=== PATIENT | female | born 1955 | race Caucasian/White ===

== ENCOUNTER 2017-08-22 10:34 | Outpatient (CLI) | payer OTHER ==
--- NOTE | 2017-08-22 12:02 | RAD ---
CHEST PA AND LATERAL: History: 62-year-old female with history of dyspnea. Comparison: 09-22-16 FINDINGS: Bilateral linear, interstitial, and reticular nodular parenchymal changes are noted, evidence for lashawn e stable chronic lung changes. Heart size is within normal limits. The lungs are clear of acute proce ss. No significant pleural effusion or confluent pneumonia. IMPRESSION: Stable chronic changes. No significant acute process. POS: [facility]
== END 2017-08-22 10:35 | disposition home or self-care (01) ==
LOC: RAD 10:34
PROVIDERS: ATTEND Internal Medicine Pulmonary Disease
DX: R06.00 Dyspnea, unspecified (principal)
CPT/HCPCS: 71020

== ENCOUNTER 2017-10-30 10:58 | Outpatient (CLI) | payer OTHER ==
--- NOTE | 2017-10-30 12:26 | RAD ---
TWO VIEWS OF THE CHEST: HISTORY: Dyspnea. COMPARISON: 08/22/2017 FINDINGS: Two views of the chest show a normal sized cardiomediastinal silhouette. Increased interstitial jerry ings are present. There is no evidence of consolidation, mass, or pleural effusion. Degenerative ch anges are seen in the spine. IMPRESSION: No evidence of acute cardiopulmonary disease. POS: [facility]
== END 2017-10-30 10:59 | disposition home or self-care (01) ==
LOC: RAD 10:58
PROVIDERS: ATTEND Internal Medicine Pulmonary Disease
DX: R06.00 Dyspnea, unspecified (principal)
CPT/HCPCS: 71046

== ENCOUNTER 2017-11-18 09:11 | Observation (INO) | payer OTHER ==
--- NOTE | 2017-11-18 09:59 | RAD ---
AP VIEW OF THE CHEST: INDICATION: Chest pain. COMPARISON: Prior exam dated 10/30/17. IMPRESSION: There is stable cardiomegaly and chronic lung changes. No focal consolidation, pleural fluid, or pne umothorax is evident. No acute osseous abnormality is evident. POS: [facility]
[2017-11-18 10:02] LABS: #Basophils 0.1 thou/uL (0.0-0.2); #Eosinphils 0.2 thou/uL (0.0-0.7); #Lymphocytes 1.9 thou/uL (1.20-3.40); %Basophils 0.5 % (0.0-1.0); %Eosinophils 1.7 % (0.0-10.0); %Lymphocytes 15.5 % (21.0-51.0); %Monocytes 8.4 % (0.0-10.0); %Neutrophils 73.9 % (42.0-75.0); Hemoglobin 13.4 g/dL (12.0-16.0); Mean Corpuscular Hemoglobin 30.6 pg (27.0-31.0); Mean Corpuscular Volume 90.2 fl (81.0-99.0); Platelet Count 330 thou/uL (130-400); RBC Distribution Width 12.1 % (11.5-14.5); Red Blood Cell (RBC) Count 4.39 mill/uL (4.20-5.40); White Blood Cell (WBC) Count 12.1 thou/uL (4.8-10.8)
[2017-11-18 10:07] LABS: Prothrombin Time 13.6 SEC (12.0-14.7)
[2017-11-18] MEDS ORDERED: methylPREDNISolone Sod Succ/PF 125 MG/2 ML VIAL ONE (10:20)
[2017-11-18 10:23] LABS: ALT (SGPT) 21 U/L (8-55); AST (SGOT) 20 U/L (5-34); Albumin 4.3 g/dL (3.4-4.8); Alkaline Phosphatase 84 U/L (40-150); Anion Gap 12 mmol/L (10-20); BUN (Urea Nitrogen) 14 mg/dL (9.8-20.1); Bilirubin, Total 0.4 mg/dL (0.2-1.2); CK (CPK) 44 U/L (29-168); Calc. Creatinine Clearance 0 mL/min (70-130); Calcium 9.5 mg/dL (7.8-10.44); Carbon Dioxide 27 mmol/L (23-31); Chloride 99 mmol/L (98-107); Estimated GFR-MDRD 70; Globulin 3.3 g/dL (2.4-3.5); Glucose 95 mg/dL (80-115); Lipase 15 U/L (8-78); Potassium 3.5 mmol/L (3.5-5.1); Protein, Total 7.6 g/dL (6.0-8.3); Sodium 134 mmol/L (136-145)
[2017-11-18 10:26] LABS: CKMB 0.5 ng/mL (0-6.6); Troponin I Less than 0.010 ng/mL (< 0.028)
[2017-11-18 10:39] LABS: D-Dimer Test 0.71 *mcg/mL (0.27-0.43)
[2017-11-18] MEDS ORDERED: Nitroglycerin 0.4 MG TAB (25 Tab Bottle) ONE ×2 (12:18→21:26)
[2017-11-18] MEDS ORDERED: ISOVUE-370 76%-LOCM 1 ML ONE (12:58)
--- NOTE | 2017-11-18 13:30 | CT ---
CT ARTERIOGRAM CHEST WITH IV COTNRAST AND 3D MIP IMAGING: HISTORY: Chest pain. Dyspnea. FINDINGS: There is good contrast opacification of the pulmonary arteries. No mediastinal adenopathy or pleural fluid are visible. There are coarsened interstitial markings throughout each lung, most pronounced at the upper lobes, with patchy areas of subtle ground-glass opacity, primarily in the areas of inter stitial abnormality. Tiny nonspecific subpleural nodules are stable. IMPRESSION: 1. No CT evidence of pulmonary embolus 2. Upper lobe interstitial lung disease with subtle multifocal pneumonitis, possibly related to the chronic disease. POS: [facility]
[2017-11-18 15:46] LABS: Troponin I Less than 0.010 ng/mL (< 0.028)
--- NOTE | 2017-11-18 16:06 | HP ---
PRIMARY CARE PHYSICIAN: Dr. Carmella Mitchell. REASON FOR ADMISSION: Chest pain. HISTORY OF PRESENT ILLNESS: A 62-year-old female with a history of nonspecific interstitial lung dis ease who came to ER with a complaint of left-sided chest pain. This patient recently went to [facility] where she was having difficulty breathing at a height and she was having chest pain on the left nazario e that was related with movement and whenever she was coughing and whenever she was taking a deep aric ath at that time she was hurting in her left chest. She reports that she hurting when she had lung b iopsy done exactly that type of pain she is experiencing. She denies any associated nausea, vomiting or diaphoresis. She denies any relation with exertion. She denies any relation with food. The patient's pain was persistent for the last 2 days and last night got worsened and that is why she was concerned about heart and that is why she came to the ER. In the emergency room, they did a CT angio with PE protocol, which was negative for PE, but it did show chronic upper lobe interstitial ronnell ng disease changes. The patient also reports that before going to [place], she was having low grade fever and cough and that is why her primary care physician prescribed Bactrim-DS, which she finished almost 2 weeks and her dose was finished yesterday. At that time, dose of prednisone, normally she was taking 5 mg every other day, that was also increased to 20 mg daily, and then reduced to 10 mg da cherri. The patient denies any UTI symptoms. She denies any fever or chills. She denies any constipation, d iarrhea, melena or hematochezia. She denies any abdominal pain. REVIEW OF SYSTEMS: Constitutional: Weight loss or gain, ability to conduct usual activities. Skin: Rash, itching. Eyes: Double vision, pain. ENT/Mouth: Nose bleeding, neck stiffness, pain, tenderness. Cardiovascular: Palpitations, dyspnea on exertion, orthopnea. Respiratory: Shortness of breath, wheezing, cough, hemoptysis, fever or night sweats. Gastrointestinal: Poor appetite, abdominal pain, heartburn, nausea, vomiting, constipation, or diarr hea. Genitourinary: Urgency, frequency, dysuria, nocturia. Musculoskeletal: Pain, swelling. Neurologic/Psychiatric: Anxiety, depression. Allergy/Immunologic: Skin rash, bleeding tendency. Please see my HPI for pertinent positives and negatives. All other review of systems reviewed and ne gative except as mentioned in the HPI. ALLERGIES: No known drug allergies. CURRENT HOME MEDICATIONS: The patient is currently on prednisone 10 mg p.o. daily, Ambien 10 mg p.o. at bedtime, Ventolin HFA 1 puff q.6 hourly p.r.n., Zocor 40 mg p.o. at bedtime, Zoloft 100 mg p.o. d aily, omeprazole 20 mg p.o. daily, Singulair 10 mg p.o. daily, Losartan with hydrochlorothiazide 1.5 tablet p.o. daily, DuoNeb q.6 hourly p.r.n., Mucinex 600 mg twice daily, Breo Ellipta one inhalation daily, Tessalon 100 mg q.4 hourly p.r.n. and amitriptyline 25 mg p.o. at bedtime. PAST MEDICAL HISTORY: Interstitial lung disease, history of West Nile virus in 2011, hypertension an d dyslipidemia. PAST PSYCHIATRIC HISTORY: Anxiety, depression and obsessive compulsive disorder. PAST SURGICAL HISTORY: Right total knee replacement, hysterectomy and lung biopsy in 07/2016. SOCIAL HISTORY: The patient drinks alcohol socially twice a month. She denies any smoking. She ruben t smoking 5 years ago, otherwise she was a former smoker. She is not a heavy smoker in her life. Giovani russ denies any other illicit drug abuse. FAMILY HISTORY: No strong family history of premature coronary artery disease, stroke or cancer. EMERGENCY ROOM COURSE: The patient is given nitroglycerin, aspirin 324 mg, DuoNeb therapy and Solu-M edrol 125 mg. PHYSICAL EXAMINATION: VITAL SIGNS: Currently, blood pressure 133/75, pulse 90, respiratory rate 21, temperature 97.5, satu ration 97% on room air and weight 90.7 kilograms. GENERAL: The patient is currently alert and oriented, no acute distress. HEAD: Normocephalic, atraumatic. EYES: Pupils are round and reactive to light. Extraocular muscles intact. ENT: Oropharynx within normal limits. Moist mucous membranes. No oral lesions. No pharyngeal eryt allan, no exudate. NECK: Supple. No JVD, no thyromegaly, no carotid bruit, no jugular venous distention. LUNGS: Air entry reduced, but no wheeze, no rhonchi, no rales. CARDIAC: S1 and S2 regular. No murmur, no gallop, no rub. ABDOMEN: Obesity. Bowel sounds present. Nontender and nondistended. No organomegaly, no mass, no suprapubic tenderness. BACK: Unremarkable. No CVA tenderness. EXTREMITIES: Upper extremity passive movement of all joints are normal. Lower extremities; no edema . Good peripheral pulsation. SKIN: No skin rash. HEMATOLOGICAL SYSTEM: No lymphadenopathy. PSYCHIATRIC: Normal affect. NEUROLOGIC: Nonfocal examination. SIGNIFICANT LABS AND IMAGING DATA: EKG showing normal sinus rhythm without any acute ischemic change s. CT angio showing no PE, upper lobe interstitial lung disease changes. Chest x-ray based on my re view, no acute cardiopulmonary process. CBC: WBC 12.1, hemoglobin 13.4 and platelets 330. INR 1.0, D-dimer 0.71. BMP: Sodium 134, potassium 3.5, chloride 99, carbon dioxide 27, BUN 14, creatinine 0.83, calcium 9.5 . LFT: AST 20, ALT 21, alkaline phosphatase 84, albumin 4.3. Lipase 15, CK 44, CK-MB 0.5 and troponin I less than 0.010. ASSESSMENT, PLAN AND IMPRESSION: 1. Acute chest pain. The patient's chest pain description is most likely related with costochondrit is. She has pleuritic pain locally related with movement and associated with cough only. She also h as some mild point tenderness over the left side of the chest, underneath of her breast. I am most l ikely suspecting costochondritis. The patient is over concerned about cardiac etiology. I reassured her that this is not cardiac etiology. EKG is normal and cardiac enzymes are negative, but for bene fit of doubt patient wanted to go for stress test and that is why we will perform pharmacological str ess test tomorrow morning to rule out underlying ischemia. Meanwhile, we will continue Aspirin 81 mg p.o. daily and will control her pain with pain medication. 2. Nonspecific interstitial lung disease. We will continue prednisone 10 mg p.o. daily. The patien t has given high dose of steroid in the emergency room. We will continue her home medications and in halers while in hospital as well. 3. Anxiety and depression. We will continue Zoloft 100 mg p.o. daily as per home dosage. 4. Dyslipidemia. Check lipid profile tomorrow and continue Zocor 40 mg p.o. at bedtime. 5. Deep venous thrombosis prophylaxis not needed because we are expecting discharge in 24 hours. 6. Gastrointestinal prophylaxis. Protonix 40 mg p.o. daily. 7. Gastroesophageal reflux disease. We will continue Protonix 40 mg p.o. daily. CODE STATUS: The patient is FULL CODE. The patient does not have any surrogate decision maker. Disposition plan based on clinical course and based on stress test results, likely within 24 hours. Plan of care discussed with the patient in detail and she agreed with the plan.
[2017-11-18] MEDS ORDERED: Ondansetron HCl/PF 4 MG/2 ML Vial IVP PRN ×2 (16:16→16:17)
[2017-11-18] MEDS ORDERED: Acetaminophen 325 MG TAB PO PRN ×2 (16:16→16:17)
[2017-11-18] MEDS ORDERED: Ondansetron ODT 4 MG TAB SL PRN (16:16)
[2017-11-18] MEDS ORDERED: Diabetic Tussin 200 MG/10 ML UDCUP PO PRN (16:17)
[2017-11-18] MEDS ORDERED: Loperamide HCl 2 MG CAP PO PRN (16:17)
[2017-11-18] MEDS ORDERED: Eucerin (Mineral Oil/Petrolatum,White) 30 gm Jar TOP PRN (16:17)
[2017-11-18] MEDS ORDERED: Ondansetron ODT 4 MG TAB PO PRN (16:17)
[2017-11-18] MEDS ORDERED: Sodium Chloride 0.65% Nasal 44 ML BOT EA NARE PRN (16:17)
[2017-11-18] MEDS ORDERED: hydrALAZINE 20 MG/ML VIAL SLOW IVP PRN (16:17)
[2017-11-18] MEDS ORDERED: Benzonatate 100 MG CAP PO PRN (16:17)
[2017-11-18] MEDS ORDERED: HYDROcodone/Acetaminophen 5/325 mg Tablet PO PRN (16:17)
[2017-11-18] MEDS ORDERED: Artificial Tears 18 DROP/0.9 ML EA EYE PRN (16:17)
[2017-11-18] MEDS ORDERED: Senokot 8.6 MG TAB PO PRN (16:17)
[2017-11-18] MEDS ORDERED: Mag-Al 1200 mg/1200 mg/30 ML UDCUP PO PRN (16:17)
[2017-11-18] MEDS ORDERED: Milk Of Magnesia 30 ML UDCUP PO PRN (16:17)
[2017-11-18] MEDS ORDERED: Chloraseptic Spray 180 ml Bottle PO PRN (16:17)
[2017-11-18] MEDS ORDERED: Loratadine 10 MG TAB PO PRN (16:17)
[2017-11-18 16:50] VITALS: BMI 34.3
[2017-11-18 18:30] LABS: Troponin I Less than 0.010 ng/mL (< 0.028)
[2017-11-18] MEDS ORDERED: Atorvastatin Calcium 20 MG TAB PO SCH (21:00)
[2017-11-18] MEDS ORDERED: Nitroglycerin 2% Ointment 1 INCH/1 GM Packet ONE (21:26)
[2017-11-18] MEDS: Zolpidem Tartrate 5 MG TAB PO PRN ×2 (21:35→21:36)
[2017-11-19 04:52] LABS: Cardiac Risk 2.6 (Less than 4.5)
[2017-11-19] MEDS ORDERED: PROVENTIL INHALER 6.7 G (200 INHALATIONS) INH PRN (07:08)
[2017-11-19] MEDS ORDERED: Potassium Chloride 20 MEQ TAB PO SCH ×2 (07:15→08:00)
[2017-11-19] MEDS ORDERED: Mometasone/Formoterol 120 PUFF INHALER INH SCH (07:30)
[2017-11-19] MEDS ORDERED: predniSONE 5 MG TAB PO SCH (08:00)
[2017-11-19 08:30] VITALS: BP 135/73; TEMP 98.1
[2017-11-19] MEDS ORDERED: guaiFENesin ER 600 MG TAB PO SCH (09:00)
[2017-11-19] MEDS ORDERED: Montelukast Sodium 10 mg Tablet PO SCH (09:00)
[2017-11-19] MEDS ORDERED: Aspirin 325 MG TAB PO SCH (09:00)
--- NOTE | 2017-11-19 09:15 | PDOC.PN ---
- Subjective Encounter Start Date: 11/19/17 Encounter Start Time: 07:20 -: old records requested/rev Patient seen and examined. No new complaints. No overnight events - Objective Resuscitation Status: Resuscitation Status FULL:Full Resuscitation MAR Reviewed: Yes Vital Signs & Weight: Vital Signs (12 hours) Temp Pulse Resp BP BP Pulse Ox 11/19/17 07:49 98.1 F 82 16 135/73 98 11/19/17 03:57 97.7 F 76 18 129/60 96 I&O: 11/18/17 11/19/17 11/20/17 06:59 06:59 06:59 Intake Total 875 Output Total 800 Balance 75 Result Diagrams: 11/18/17 09:51 11/18/17 09:51 EKG Reviewed by me: Yes (nsr) Phys Exam - Physical Examination Constitutional: NAD HEENT: PERRLA, moist MMs, sclera anicteric Neck: no JVD, supple Respiratory: no wheezing, no rales, no rhonchi Cardiovascular: RRR, no significant murmur, no rub Gastrointestinal: soft, non-tender, no distention, positive bowel sounds Musculoskeletal: no edema, pulses present Neurological: non-focal, normal sensation, moves all 4 limbs Psychiatric: normal affect, A&O x 3 Skin: no rash, normal turgor Dx/Plan (1) Chest pain Code(s): R07.9 - CHEST PAIN, UNSPECIFIED Status: Acute Qualifiers: Chest pain type: unspecified Qualified Code(s): R07.9 - Chest pain, unspecified (2) Anxiety and depression Code(s): F41.9 - ANXIETY DISORDER, UNSPECIFIED; F32.9 - MAJOR DEPRESSIVE DISORDER, SINGLE EPISODE, UNSPECIFIED Status: Chronic (3) Diastolic dysfunction Code(s): I51.9 - HEART DISEASE, UNSPECIFIED Status: Chronic (4) Dyslipidemia Code(s): E78.5 - HYPERLIPIDEMIA, UNSPECIFIED Status: Chronic (5) Hypertension Code(s): I10 - ESSENTIAL (PRIMARY) HYPERTENSION Status: Chronic (6) ILD (interstitial lung disease) Code(s): J84.9 - INTERSTITIAL PULMONARY DISEASE, UNSPECIFIED Status: Chronic (7) Obesity (BMI 30.0-34.9) Code(s): E66.9 - OBESITY, UNSPECIFIED Status: Chronic - Plan cont current plan of care * pt's chest pain is musculoskeletal, * today pt decided not to go for stress test, will cancel * we have ruled out ACS * she can follow up with pulmonary after discharge * medication reviewed as below * symptomatic treatment. Review of Systems - Review of Systems Constitutional: negative: fever, chills, sweats, weakness, malaise, other Eyes: negative: Pain, Vision Change, Conjunctivae Inflammation, Eyelid Inflammation, Redness, Other ENT: negative: Ear Pain, Ear Discharge, Nose Pain, Nose Discharge, Nose Congestion, Mouth Pain, Mouth Swelling, Throat Pain, Throat Swelling, Other Respiratory: Cough. negative: Dry, Shortness of Breath, Hemoptysis, SOB with Excertion, Pleuritic Pain, Sputum, Wheezing Cardiovascular: chest pain. negative: palpitations, orthopnea, paroxysmal nocturnal dyspnea, edema, light headedness, other Gastrointestinal: negative: Nausea, Vomiting, Abdominal Pain, Diarrhea, Constipation, Melena, Hematochezia, Other Genitourinary: negative: Dysuria, Frequency, Incontinence, Hematuria, Retention , Other Musculoskeletal: negative: Neck Pain, Shoulder Pain, Arm Pain, Back Pain, Hand Pain, Leg Pain, Foot Pain, Other Skin: negative: Rash, Lesions, Stephane, Bruising, Other - Medications/Allergies Allergies/Adverse Reactions: Allergies Allergy/AdvReac Type Severity Reaction Status Date / Time No Known Drug Allergies Allergy Verified 02/14/16 01:05 Medications: Current Medications Acetaminophen (Tylenol) 650 mg PO Q4H PRN PRN Reason: Headache/Fever or Pain Hydrocodone Bitart/Acetaminophen ([place] 5/325) 1 tab PO Q4H PRN PRN Reason: Moderate Pain (4-6) Last Admin: 11/18/17 20:39 Dose: 1 tab Al Hydroxide/Mg Hydroxide (Maalox) 30 ml PO Q6H PRN PRN Reason: Heartburn or Indigestion Last Admin: 11/18/17 21:46 Dose: 30 ml Albuterol Sulfate (Proventil Hfa) 1 puff INH Q4H PRN PRN Reason: SOB &/or Wheezing Albuterol/Ipratropium (Duoneb) 3 ml NEB QID-RT [facility] Amitriptyline HCl (Elavil) 25 mg PO HS [facility] Artificial Tears (Tears Naturale) 0 drop EA EYE PRN PRN PRN Reason: Dry Eyes Aspirin (Aspirin) 325 mg PO DAILY [facility] Atorvastatin Calcium (Lipitor) 20 mg PO HS [facility] Last Admin: 11/18/17 20:37 Dose: 20 mg Benzonatate (Tessalon) 100 mg PO Q4H PRN PRN Reason: Cough Guaifenesin (Robitussin Sf) 200 mg PO Q4H PRN PRN Reason: Cough Last Admin: 11/18/17 20:40 Dose: 200 mg Guaifenesin (Mucinex) 600 mg PO BID [facility] HCTZ/Losartan Potassium (Hyzaar 50/12.5) 1 tab PO DAILY [facility] Hydralazine HCl (Apresoline) 10 mg SLOW IVP Q4H PRN PRN Reason: Systolic BP > 180 Loperamide HCl (Imodium) 2 mg PO PRN PRN PRN Reason: Diarrhea/Loose Stools Loratadine (Claritin) 10 mg PO DAILYPRN PRN PRN Reason: Sinus Symptoms Magnesium Hydroxide (Milk Of Magnesium) 30 ml PO DAILYPRN PRN PRN Reason: Constipation Mineral Oil/White Petrolatum (Eucerin Cream) 0 gm TOP BIDPRN PRN PRN Reason: Dry Skin Mometasone Furoate/Formoterol Fumar (Dulera 100 Mcg/5 Mcg Inhaler) 2 puff INH BID-RT [facility] Montelukast Sodium (Singulair) 10 mg PO DAILY [facility] Ondansetron HCl (Zofran Odt) 4 mg PO Q6H PRN PRN Reason: Nausea/Vomiting Ondansetron HCl (Zofran) 4 mg IVP Q6H PRN PRN Reason: Nausea/Vomiting Phenol (Chloraseptic [place] 180 Ml Bot) 0 ml PO PRN PRN PRN Reason: Sore Throat Potassium Chloride (K-Dur) 20 meq PO QAM-WM [facility] Prednisone (Prednisone) 10 mg PO QAM-WM [facility] Senna (Senokot) 2 tab PO HSPRN PRN PRN Reason: Constipation Sertraline HCl (Zoloft) 100 mg PO HS [facility] Last Admin: 11/18/17 20:37 Dose: 100 mg Sertraline HCl (Zoloft) 100 mg PO HS [facility] Simvastatin (Zocor) 40 mg PO HS [facility] Sodium Chloride ([place] Nasal [place] 0.65%) 0 ml EA NARE QIDPRN PRN PRN Reason: Nasal Congestion Zolpidem Tartrate (Ambien) 10 mg PO HS [facility]
--- NOTE | 2017-11-19 11:02 | DIS ---
PRIMARY CARE PHYSICIAN: Dr. Carmella Mitchell. DATE OF ADMISSION: 11/18/2017 DATE OF DISCHARGE: 11/19/2017 DISCHARGE DISPOSITION: Home. PRIMARY DISCHARGE DIAGNOSES: Chest pain, likely due to costochondritis ruled out acute coronary synd olive. SECONDARY DISCHARGE DIAGNOSES: Obesity with BMI 34, interstitial lung disease, hypertension, dyslipi demia, diastolic dysfunction, anxiety, and depression. PRIMARY PROCEDURE/OPERATION: None. RADIOLOGICAL INVESTIGATION: CT angiography showed right upper lobe nonspecific interstitial lung dis ease, but no PE. Chest x-ray showed chronic changes, no acute process. SIGNIFICANT LABORATORY DATA: WBC 12.1, hemoglobin 13.4, platelets 330, D-dimer 0.71. INR 1.0. BMP normal. LFTs normal. Cardiac enzymes negative x3. LDL 90. Lipase 15. DISCHARGE MEDICATIONS: Amitriptyline 25 mg p.o. at bedtime, Breo Ellipta 1 inhalation daily, Mucinex 600 mg twice daily, DuoNeb q.6 hourly p.r.n., losartan with hydrochlorothiazide 50/12.5 one tablet p .o. daily, Singulair 10 mg p.o. daily, omeprazole 20 mg p.o. daily, potassium chloride 20 mEq p.o. da cherri, prednisone 10 mg p.o. daily, Zoloft 100 mg p.o. at bedtime, Zocor 40 mg p.o. at bedtime, Ventoli n inhaler one inhalation q.4 hourly p.r.n., and Ambien CR 12.5 mg p.o. at bedtime. CONTRAINDICATIONS: None. CODE STATUS: FULL CODE. INPATIENT CONSULTANTS: None. ALLERGIES: No known drug allergy. DISCHARGE PLAN: Post hospital, the patient is advised to follow with Dr. Rodgers and Dr. Carmella Mitchell as instructed. HOSPITAL COURSE: The patient is a 62-year-old female with above-mentioned medical problem, who was a dmitted by me yesterday. Please see my progress note from today for further details. This patient w as having lately cough for a long period of time and she was having fever and that is why she was pre scribed Bactrim DS by primary care physician. She finished complete course of therapy. Recently she went to [place] and where she was having increasing dyspnea as well as increasing cough and because of increasing cough, the patient was having chest pain on the left side. She had reproducible chest pain. We are suspecting costochondritis. Her EKG and chest x-ray was unremarkable. CT angio was n egative for PE. The patient was observed on telemetry floor and we did serial cardiac enzyme and it ruled out acute coronary syndrome. Her lipid profile was also at target. We continued all her home medication while in hospital as well as on discharge. Initially, this patient was wanted to go for stress test, but this morning she decided not to go for stress test and I am okay with that because patient has mostly costochondritis. If she needs to go f or stress test, she can have it as an outpatient basis and she can follow up with Pulmonology as well . The patient is seen and examined at bedside today. Please see my progress note from today for furthe r details.
[2017-11-19] MEDS ORDERED: Zolpidem Tartrate 5 MG TAB PO SCH (21:00)
[2017-11-19] MEDS ORDERED: Amitriptyline HCl 25 MG TAB PO SCH (21:00)
[2017-11-19] MEDS ORDERED: Simvastatin 40 MG TAB PO SCH (21:00)
== END 2017-11-19 09:29 | disposition home or self-care (01) ==
LOC: ERS 09:11 → 2SW 16:04
PROVIDERS: ADMIT Internal Medicine; ATTEND Internal Medicine
DX: R07.9 Chest pain, unspecified (principal); E66.9 Obesity, unspecified; J84.9 Interstitial pulmonary disease, unspecified; I10 Essential (primary) hypertension; E78.5 Hyperlipidemia, unspecified; I50.9 Heart failure, unspecified; F41.9 Anxiety disorder, unspecified; K21.9 Gastro-esophageal reflux disease without esophagitis; F42.9 Obsessive-compulsive disorder, unspecified; F32.9 Major depressive disorder, single episode, unspecified; Z68.34 Body mass index [BMI] 34.0-34.9, adult; Z79.51 Long term (current) use of inhaled steroids; Z79.52 Long term (current) use of systemic steroids; Z79.899 Other long term (current) drug therapy; Z96.651 Presence of right artificial knee joint; Z87.891 Personal history of nicotine dependence; Z90.710 Acquired absence of both cervix and uterus; Z98.890 Other specified postprocedural states
CPT/HCPCS: 36415; 36416; 71045; 71275; 80053; 80061; 82553; 83690; 84484; 85025; 85379; 85610; 85730; 93005; 94640; 96374; G0378; J2930

== ENCOUNTER 2018-05-11 10:08 | Outpatient (CLI) | payer OTHER ==
[2018-05-11] MEDS ORDERED: ISOVUE-370 76%-LOCM 1 ML ONE (14:46)
== END 2018-05-11 10:09 | disposition home or self-care (01) ==
LOC: BICCT 10:08
PROVIDERS: ATTEND Internal Medicine Gastroenterology
DX: R10.13 Epigastric pain (principal); R14.2 Eructation; R13.10 Dysphagia, unspecified
CPT/HCPCS: 74177; 82565

== ENCOUNTER 2018-06-01 09:18 | Outpatient (CLI) | payer OTHER | END 2018-06-01 09:19 | disposition home or self-care (01) | LOC: BICMAMMO 09:18 | PROVIDERS: ATTEND Family Medicine | DX: Z12.31 Encounter for screening mammogram for malignant neoplasm of breast (principal); Z13.820 Encounter for screening for osteoporosis; M85.89 Other specified disorders of bone density and structure, multiple sites; Z80.3 Family history of malignant neoplasm of breast; Z79.52 Long term (current) use of systemic steroids | CPT/HCPCS: 77063; 77066; 77067; 77080; G0279 ==

== ENCOUNTER 2019-04-18 09:44 | Outpatient (CLI) | payer OTHER ==
--- NOTE | 2019-04-18 10:07 | ULT ---
EXAM: Left lower extremity venous Doppler US HISTORY: Left lower extremity pain FINDINGS: Grayscale, color-flow, Doppler evaluation, spectral analysis of the left lower extremity venous struc tures is performed with 2-D imaging. The left common femoral, superficial femoral, popliteal, posterior tibial, proximal greater saphenous and profunda femoral veins are imaged. There is normal luminal compressibility, flow, and augmentation the visualized deep venous structures of the left lower extremity. IMPRESSION: No evidence of a deep vein thrombosis in the left lower extremity.
== END 2019-04-18 09:45 | disposition home or self-care (01) ==
LOC: ULT 09:44
PROVIDERS: ATTEND Family Medicine
DX: M79.605 Pain in left leg (principal)

== ENCOUNTER 2019-10-16 12:34 | Outpatient (CLI) | payer OTHER ==
--- NOTE | 2019-10-16 12:46 | RAD ---
EXAM: Chest 2 views: HISTORY: Chest pain COMPARISON: 11/18/2017 FINDINGS: There is a normal-sized cardiomediastinal silhouette. There is no evidence of consolidation, mass, or pleural effusion. The bones are unremarkable. IMPRESSION: No evidence of acute cardiopulmonary disease
== END 2019-10-16 12:35 | disposition home or self-care (01) ==
LOC: RAD 12:34
PROVIDERS: ATTEND Internal Medicine Pulmonary Disease
DX: R06.00 Dyspnea, unspecified (principal)
CPT/HCPCS: 71046

== ENCOUNTER 2019-10-29 08:30 | Outpatient (CLI) | payer OTHER ==
--- NOTE | 2019-10-29 08:58 | MMO ---
Bilateral MAMMO Bilat Screen [facility]. CLINICAL HISTORY: Patient is 64 years old and is seen for screening. The patient has the following family history of breast cancer: 2 maternal aunts. The patient has no personal history of cancer. VIEWS: The views performed were: bilateral craniocaudal with tomosynthesis and bilateral mediolateral oblique with tomosynthesis. FILMS COMPARED: The present examination has been compared to prior imaging studies performed at [facility] on 06/01/2018, and at [facility] on 06/16/2014, 10/30/2015 and 04/19/2017. This study has been interpreted with the assistance of computer-aided detection. MAMMOGRAM FINDINGS: There are scattered fibroglandular densities. There are no suspicious masses, suspicious calcifications, or new areas of architectural distortion. IMPRESSION: THERE IS NO MAMMOGRAPHIC EVIDENCE OF MALIGNANCY. A ROUTINE FOLLOW-UP MAMMOGRAM IN 1 YEAR IS RECOMMENDED. THE RESULTS OF THIS EXAM WERE SENT TO THE PATIENT. ACR BI-RADS Category 1 - Negative MAMMOGRAPHY NOTE: 1. A negative mammogram report should not delay a biopsy if a dominant of clinically suspicious mass is present. 2. Approximately 10% to 15% of breast cancers are not detected by mammography. 3. Adenosis and dense breasts may obscure an underlying neoplasm. Reported by: DEVANG WEBB MD Electonically Signed: [id number]
== END 2019-10-29 08:31 | disposition home or self-care (01) ==
LOC: BICMAMMO 08:30
PROVIDERS: ATTEND Family Medicine
DX: Z12.31 Encounter for screening mammogram for malignant neoplasm of breast (principal); Z80.3 Family history of malignant neoplasm of breast
CPT/HCPCS: 77063; 77067

== ENCOUNTER 2020-02-27 08:27 | Emergency (ER) | payer OTHER ==
[2020-02-27] MEDS ORDERED: HYDROcodone/Acetaminophen 5/325 mg Tablet ONE (09:12)
[2020-02-27] MEDS ORDERED: Ketorolac Tromethamine 30 MG/ML VIAL ONE (09:12)
--- NOTE | 2020-02-27 09:19 | RAD ---
Exam:Right ankle 3 views HISTORY: Trauma. Pain. Fall. COMPARISON: None FINDINGS: Lateral soft tissue swelling. Preserved joint spaces. No fracture, cortical irregularity or periosteal reaction IMPRESSION: Lateral soft tissue swelling, without fracture.
--- NOTE | 2020-02-27 12:45 | RAD ---
RIGHT KNEE 4 VIEWS: HISTORY: Fall, right knee pain. COMPARISON: 01/27/2013. FINDINGS/IMPRESSION: There are postop changes of total knee arthroplasty in good position and alignment. The small bony d ensity adjacent to the medial femoral condyle is again seen and likely due to remote trauma. No acut e fracture or dislocation is seen. No periprosthetic lucencies are identified to suggest loosening. POS: [facility]
== END 2020-02-27 09:55 | disposition home or self-care (01) ==
LOC: ERS 08:27
DX: M25.561 Pain in right knee (principal); E78.5 Hyperlipidemia, unspecified; E78.00 Pure hypercholesterolemia, unspecified; I10 Essential (primary) hypertension; F41.9 Anxiety disorder, unspecified; F42.9 Obsessive-compulsive disorder, unspecified; Z87.891 Personal history of nicotine dependence
CPT/HCPCS: 96372; J1885

== ENCOUNTER 2020-06-04 05:51 | Day surgery (SDC) | payer OTHER ==
[2020-06-02 12:16] VITALS: BMI 36.2
[2020-06-04] MEDS ORDERED: Lidocaine 1% (PF) 30 ML VIAL ONE (06:17)
[2020-06-04] MEDS ORDERED: Fentanyl 100 MCG/2 ML VIAL ONE ×2 (06:17→07:32)
[2020-06-04] MEDS ORDERED: Midazolam HCl 2 mg/2 ml Vial ONE (06:17)
[2020-06-04] MEDS ORDERED: Ropivacaine 0.2% HCl/PF 20 ML ONE (06:17)
[2020-06-04] MEDS ORDERED: Fentanyl 100 MCG/2 ML VIAL IV PRN (07:11)
[2020-06-04] MEDS ORDERED: Zolpidem Tartrate 5 MG TAB PO PRN (07:11)
[2020-06-04] MEDS ORDERED: HYDROcodone/Acetaminophen 5/325 mg Tablet PO PRN ×2 (07:11)
[2020-06-04] MEDS ORDERED: Ondansetron PF 4 MG/2 ML Vial IVP PRN (07:11)
[2020-06-04] MEDS ORDERED: Ropivacaine 0.2% 550 ML 550 ML NERVE BLCK SCH (07:11)
[2020-06-04] MEDS ORDERED: Promethazine HCl 25 MG/ML VIAL IM PRN (07:11)
--- NOTE | 2020-06-04 11:14 | OP ---
DATE OF PROCEDURE: 06/04/2020 PROCEDURES PERFORMED: Right shoulder arthroscopic subacromial decompression and rotator cuff repair. ANESTHESIA: General. ESTIMATED BLOOD LOSS: Minimal. SPECIMENS: None. DRAINS: None. COMPLICATIONS: None. DESCRIPTION OF PROCEDURE: The patient was taken to the operating room, where general anesthesia was induced. The patient was placed in left lateral decubitus position. Right arm was placed in 15 pounds of traction. Scope was placed in glenohumeral joint. The biceps tendon was in good condition. The rotator cuff tear was easily identified there was no significant articular cartilage damage. The scope was placed in the subacromial bursa. CA ligament was taken down and bursectomy was performed. Hemostasis was obtained. Identified the rotator cuff tear. I freshened up the rotator cuff tear. I freshened the greater tuberosity. A single 20-[place] suture anchor was passed through the greater tuberosity. Sutures were passed the rotator cuff and tied down with a good watertight repair and reinforced with a lateral row repair. Shoulder was then drained. Portals were closed with nylon suture. Sterile dressing was applied. Job ID: [id number]
[2020-06-04] MEDS ORDERED: EPHEDRINE 25 MG/5 ML SYRINGE ONE (11:24)
[2020-06-04] MEDS ORDERED: Ondansetron PF 4 MG/2 ML Vial ONE (11:24)
[2020-06-04] MEDS ORDERED: PHENYLEPHRINE-NS 100 MCG/ML 10 ML SYRINGE ONE (11:24)
[2020-06-04] MEDS ORDERED: Glycopyrrolate 0.2 MG/ML 5 ML SYRINGE ONE (11:24)
[2020-06-04] MEDS ORDERED: Dexamethasone 20 MG/5 ML VIAL ONE (11:24)
[2020-06-04] MEDS ORDERED: Rocuronium Bromide 10 MG/ML (10ML VIAL) ONE (11:24)
[2020-06-04] MEDS ORDERED: Metoclopramide HCl 10 MG/2 ML VIAL ONE (11:24)
[2020-06-04] MEDS ORDERED: PROPOFOL 200 MG/20 ML VIAL ONE (11:24)
[2020-06-04] MEDS ORDERED: Ketorolac Tromethamine 30 MG/ML VIAL ONE (11:24)
[2020-06-04] MEDS ORDERED: Lidocaine 1% PF 5 ML VIAL ONE (11:24)
[2020-06-04] MEDS ORDERED: Ropivacaine 0.2% HCl/PF (40 MG/20 ML VIAL) ONE (11:27)
[2020-06-04] MEDS ORDERED: Ropivacaine 0.5% HCl/PF (150 MG/30 ML VIAL) ONE (11:27)
== END 2020-06-04 12:10 | disposition home or self-care (01) ==
LOC: SDC 05:51
PROVIDERS: ATTEND Orthopaedic Surgery
DX: M75.111 Incomplete rotator cuff tear or rupture of right shoulder, not specified as traumatic (principal); G89.18 Other acute postprocedural pain; I10 Essential (primary) hypertension; E78.00 Pure hypercholesterolemia, unspecified; F41.9 Anxiety disorder, unspecified; K21.9 Gastro-esophageal reflux disease without esophagitis; E78.5 Hyperlipidemia, unspecified; M19.90 Unspecified osteoarthritis, unspecified site; F42.9 Obsessive-compulsive disorder, unspecified; F17.290 Nicotine dependence, other tobacco product, uncomplicated; Z79.52 Long term (current) use of systemic steroids; Z79.899 Other long term (current) drug therapy; Z88.1 Allergy status to other antibiotic agents
CPT/HCPCS: 93005; 93010; A4306; C1713; J0690; J1100; J1885; J2001; J2250; J2405; J2704; J2765; J2795; J3010

== ENCOUNTER 2020-07-21 08:36 | Inpatient (IN) | payer OTHER ==
[2020-07-21] MEDS ORDERED: Iopamidol 370 76% 100 ML VIAL ONE (08:57)
[2020-07-21] MEDS ORDERED: Acetaminophen 500 MG TAB ONE (09:17)
[2020-07-21 09:42] LABS: #Lymphocytes 1.1 thou/uL (1.20-3.40); #Monocytes 0.6 thou/uL (0.11-0.59); #Neutrophils 4.4 thou/uL (1.40-6.50); %Basophils 0.4 % (0.0-1.0); %Eosinophils 0.3 % (0.0-10.0); %Lymphocytes 18.4 % (21.0-51.0); %Monocytes 9.2 % (0.0-10.0); %Neutrophils 71.8 % (42.0-75.0); Hemoglobin 13.3 g/dL (12.0-16.0); Mean Corpuscular HGB CONC 32.8 g/dL (32.0-36.0); Mean Corpuscular Hemoglobin 30.2 pg (27.0-31.0); Mean Corpuscular Volume 92.1 fL (78.0-98.0); Mean Platelet Volume 7.2 fL (7.4-10.4); Platelet Count 263 thou/uL (130-400); White Blood Cell (WBC) Count 6.1 thou/uL (4.8-10.8)
[2020-07-21 10:11] LABS: ALT (SGPT) 23 U/L (8-55); AST (SGOT) 26 U/L (5-34); Albumin 4.3 g/dL (3.4-4.8); Alkaline Phosphatase 83 U/L (40-110); Anion Gap 13 mmol/L (10-20); BUN (Urea Nitrogen) 14 mg/dL (9.8-20.1); Bilirubin, Total 0.3 mg/dL (0.2-1.2); Calc. Creatinine Clearance 0 mL/min (70-130); Calcium 8.8 mg/dL (7.8-10.44); Carbon Dioxide 30 mmol/L (23-31); Chloride 98 mmol/L (98-107); Estimated GFR-MDRD 68; Globulin 3.3 g/dL (2.4-3.5); Glucose 84 mg/dL (80-115); Potassium 3.7 mmol/L (3.5-5.1); Protein, Total 7.6 g/dL (6.0-8.3); Sodium 137 mmol/L (136-145)
[2020-07-21] MEDS ORDERED: cefTRIAXone\\ROCEPHIN 2 GM VIAL ONE (10:21)
[2020-07-21] MEDS ORDERED: Azithromycin 500 MG VIAL ONE (10:21)
--- NOTE | 2020-07-21 10:32 | RAD ---
Frontal radiograph chest portable upright: 07/21/2020 COMPARISON: 10/30/2017 and 10/16/2019 HISTORY: Shortness of breath FINDINGS: Evaluation of the lung parenchyma is limited secondary to shallow inspiration. Coarse incre ased linear interstitial densities are noted within the suprahilar region on the right/medial right upper lobe with a degree of right upper lobe volume loss. Patchy opacities are also noted within the infrahilar region on the right, the left perihilar region, in the medial left lung base. These findings are similar when compared to 10/16/2019 although slightly more prominent in the left perihila r region and right suprahilar region. Apparent worsening may be on the basis of shallow inspiration and volume loss and/or superimposed acute infectious pneumonitis. Follow-up PA and lateral imaging of the chest suggested. IMPRESSION: Bilateral parenchymal opacities as detailed above.
[2020-07-21] MEDS ORDERED: Metoclopramide HCl 10 MG/2 ML VIAL ONE (11:47)
--- NOTE | 2020-07-21 11:52 | CT ---
Exam: CT angiogram of the chest HISTORY: COVID positive patient. Shortness of breath. Elevated d-dimer. COMPARISON: 11/18/2017 TECHNIQUE: CT angiogram of the chest is performed in the axial plane. Three-dimensional reformatted i mages are submitted for interpretation FINDINGS: Mediastinum: No mass, lymphadenopathy or hematoma. Scattered nonenlarged paratracheal and AP window/p revascular lymph nodes. HEART: Normal size. No significant pericardial fluid. Aorta: No aneurysm or dissection Upper solid abdominal viscera: No abnormality enhancement. Trachea and central bronchi: Patent Pleural spaces: No effusion Lung parenchyma: There are diffuse groundglass opacities with a predominantly peripheral distribution compatible with patient's history of COVID pneumonia. No evidence of dense consolidation with air bronchograms. There is a suture chain along the left upper lobe. Pneumothorax: None Osseous structures: No lytic or blastic lesions Pulmonary arteries: Adequate contrast opacification pulmonary arterial system to the level of segment al arteries. No filling defect to suggest pulmonary embolism IMPRESSION: 1. No evidence of pulmonary artery embolism to the level of the segmental arteries 2. Groundglass opacities with a distribution compatible/consistent with patient's history of COVID pn eumonia.
[2020-07-21 13:12] LABS: Bilirubin Negative (Negative); Blood, Urine Negative (Negative); Clarity Clear (Clear); Glucose, Urine (Dipstick) Normal (Negative); Ketone, Urine Negative (Negative); Leukocyte Negative Leu/uL (Negative); Nitrite Negative (Negative); Protein, Urine (Dipstick) 10 mg/dL (Neg-Trace); Specific Gravity, Urine 1.024 (1.002-1.036); Urobilinogen Normal mg/dL (Less than 2); pH, Urine 6.5 (5.0-9.0)
[2020-07-21] MEDS ORDERED: HYDROcodone/Acetaminophen 7.5/325 mg Tablet ONE ×2 (15:14→20:35)
--- NOTE | 2020-07-21 16:32 | HP ---
PRIMARY CARE PHYSICIAN: Dr. Carmella Mitchell. CHIEF COMPLAINT: Fever and headache. HISTORY OF PRESENT ILLNESS: This is a 65-year-old white female with a known history of chronic lung disease from aspiration due to an old West Nile virus infection, followed by Dr. Rodgers in the outpatient. She developed some nausea and vomiting and diarrhea last week, and her son and his family who had recently visited and then tested positive for COVID. She and her and her other son went and got tested for COVID last and came back positive. Her other symptoms had resolved and she felt okay until yesterday, when she started spiking high fevers and having a bad headache, also developed some cough, a little bit worse than her chronic cough from her lung disease, and a little bit worse shortness of breath. Her primary care doctor had started her on dexamethasone over the weekend, which she was taking in addition to her 10 mg of prednisone daily that Dr. Rodgers had her on. The patient presented to the emergency room today here, she was found to spike a fever to 103.9, improved now to 100.8 after Tylenol, was also noted to be tachycardic, meeting sepsis criteria. Her O2 saturation was okay initially; however, she had some increased work of breathing, so she was put on 2 L of oxygen with good O2 saturations and decreased respiratory effort and tachypnea, now down to breathing 22 times a minute from a max of 29 times a minute. REVIEW OF SYSTEMS: CONSTITUTIONAL: See HPI. EYES: No double vision or blurred vision. ENT: No congestion or drainage. She did have a little bit of sore throat. CARDIOVASCULAR: No chest pain. No palpitations or racing heart. PULMONARY: See HPI. GASTROINTESTINAL: See HPI. No current nausea, vomiting, or diarrhea. No abdominal pain. GENITOURINARY: No dysuria or hematuria. She has a little bit of trouble getting her urine out recently, this is since she got sick. MUSCULOSKELETAL: No muscle aches or joint pain. SKIN: No rashes or lesions noted. NEUROLOGIC: She denies any numbness, tingling, or focal weakness, but she did have some generalized weakness and some trouble ambulating this morning, requiring her to help her to the car to get to the emergency room. PAST MEDICAL HISTORY: 1. Chronic interstitial lung disease, thought to be secondary to chronic aspiration, followed by Dr. Rodgers. 2. 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 3. Hypertension. 4. Hyperlipidemia. PAST PSYCHIATRIC HISTORY: Positive for anxiety and depression as well as OCD. PAST SURGICAL HISTORY: 1. Right total knee replacement and right shoulder surgery by Dr. Shaw. 2. Hysterectomy. 3. Lung biopsy in 2016. SOCIAL HISTORY: The patient has a 90-[id number]-enlc history of smoking, but quit 5 years ago. No illicit drug use. She drinks socially about twice a month. The patient does live with her and one of her sons. She is a full code. Should she be incapacitated, her , Wicho Jones would be her medical decision maker. FAMILY HISTORY: Positive for a brother with myasthenia gravis. ALLERGIES: 1. LEVOFLOXACIN. 2. NITROFURANTOIN. CURRENT MEDICATIONS: 1. Hydrocodone/acetaminophen 7.5/325 mg as needed for shoulder pain. 2. Ambien 5 mg at night. 3. Cyclobenzaprine 10 mg every 8 hours. 4. Sertraline 100 mg daily. 5. Potassium chloride 10 mEq daily. 6. Losartan/hydrochlorothiazide 100/25 mg daily. 7. Zofran as needed. 8. Dexamethasone 6 mg once a day. She has two more days of her 5-day course left. 9. Xanax 0.25 mg daily. 10. Prednisone 10 mg daily, this is an increase from her baseline of 5 mg daily. PHYSICAL EXAMINATION: VITAL SIGNS: Blood pressure 120/65, pulse 94, respirations 22, temperature 99.3, O2 saturation 100% on 2 L nasal cannula. GENERAL: This is a well-developed, obese, white female, in no acute distress. HEENT: Pupils are equal, round, and reactive to light. Oropharynx clear without lesions, erythema, or exudate. NECK: Supple. No lymphadenopathy. No thyroid nodules or enlargement. No JVD. HEART: Regular rate and rhythm. No murmurs, rubs, or gallops. LUNGS: Clear to auscultation bilaterally. No wheezes, crackles, or rhonchi. ABDOMEN: Soft, nontender to palpation. Normoactive bowel sounds. No hepatosplenomegaly or other masses. EXTREMITIES: No clubbing, cyanosis, or edema. SKIN: No rashes or lesions noted. NEUROLOGIC: The patient moves all extremities equally. No facial droop. PSYCHIATRIC: Alert and oriented x3. Normal mood and affect. LABORATORY DATA: CBC with slightly low lymphocytes of 18%, the rest was normal. Coagulation profile with an elevated D-dimer of 0.63. Complete metabolic panel is within normal limits. Troponin was negative. Lactic acid was negative. Urinalysis was negative for infection. Chest x-ray in the Emergency reviewed as well as the radiologist's report, there are some bilateral patchy alveolar infiltrates, consistent with the diagnosis of COVID pneumonia. CTA of the chest and thorax showed no evidence of pulmonary embolism, but then again demonstrated bilateral ground-glass opacities with distribution compatible with the patient's history of COVID pneumonia. EKG shows sinus tachycardia at 111 beats per minute with some left axis deviation and nonspecific T-wave changes, but no evidence of acute ischemia. ASSESSMENT: 1. COVID pneumonia with mild respiratory failure. We will put the patient on Solu-Medrol 40 mg IV q.6 hours. We will consult Dr. Rodgers, and we will monitor the patient on floor on oxygen for any further deterioration. 2. Chronic interstitial lung disease. 3. Chronic dysphagia. We will put the patient on aspiration precautions. She has not needed any specific dietary interventions in the past. 4. Hypertension. Resume the patient's home blood pressure medications. 5. Hyperlipidemia. Actually, the patient does not appear to still be on a statin. 6. Depression and anxiety. We will resume the patient's SSRI and her Xanax. 7. Gastrointestinal prophylaxis. We will put the patient on Pepcid twice a day. 8. Deep venous thrombosis prophylaxis. Given her COVID and elevated D-dimer, we will put her on twice a day subcu Lovenox. 9. Code status: The patient is a full code. Should she be incapacitated, her would be her medical decision maker. Job ID: [id number]
[2020-07-21] MEDS ORDERED: Acetaminophen 650 MG Suppository PR PRN (17:58)
[2020-07-21] MEDS ORDERED: Acetaminophen 325 MG TAB PO PRN (17:58)
[2020-07-21] MEDS ORDERED: Ondansetron ODT 4 MG TAB PO PRN (17:58)
[2020-07-21] MEDS ORDERED: Ondansetron PF 4 MG/2 ML Vial IVP PRN (17:58)
[2020-07-21] MEDS: HYDROcodone/Acetaminophen 7.5/325 mg Tablet PO PRN (20:31)
[2020-07-21] MEDS ORDERED: Acetaminophen 325 MG TAB ONE (20:34)
[2020-07-21] MEDS ORDERED: Hydrocodone-Acetamin 15 ML UDCUP ONE (20:35)
[2020-07-21 23:11] VITALS: BMI 37.8
[2020-07-21] MEDS: Famotidine 20 MG TAB PO SCH (23:37)
[2020-07-21] MEDS: Senokot S 8.6-50 MG TAB PO PRN (23:37)
[2020-07-21] MEDS: Zolpidem Tartrate 5 MG TAB PO PRN (23:37)
[2020-07-21] MEDS: Gabapentin 300 MG CAP PO SCH (23:38)
[2020-07-21] MEDS: Enoxaparin Sodium 40 MG/0.4 ML SYRINGE SC SCH (23:38)
[2020-07-21] MEDS: methylPREDNISolone Sod Succ 40 MG VIAL IVP SCH (23:39)
[2020-07-21] MEDS: Guaifenesin DM 100-10/5 ML UDCUP PO PRN (23:40)
[2020-07-22] MEDS: Albuterol 200 PUFF (6.7GM INHALER) INH SCH ×4 (00:04→17:51)
[2020-07-22] MEDS: methylPREDNISolone Sod Succ 40 MG VIAL IVP SCH ×3 (05:06→17:51)
[2020-07-22 05:27] LABS: #Lymphocytes 0.7 thou/uL (1.20-3.40); #Monocytes 0.2 thou/uL (0.11-0.59); #Neutrophils 2.5 thou/uL (1.40-6.50); %Basophils 0.3 % (0.0-1.0); %Eosinophils 0.5 % (0.0-10.0); %Lymphocytes 19.5 % (21.0-51.0); %Neutrophils 74.8 % (42.0-75.0); Hemoglobin 12.1 g/dL (12.0-16.0); Mean Corpuscular HGB CONC 32.7 g/dL (32.0-36.0); Mean Corpuscular Hemoglobin 30.3 pg (27.0-31.0); Mean Corpuscular Volume 92.6 fL (78.0-98.0); Mean Platelet Volume 7.6 fL (7.4-10.4); Platelet Count 213 thou/uL (130-400); RBC Distribution Width 12.2 % (11.5-14.5); Red Blood Cell (RBC) Count 3.98 mill/uL (4.20-5.40); White Blood Cell (WBC) Count 3.3 thou/uL (4.8-10.8)
[2020-07-22 05:42] LABS: Anion Gap 11 mmol/L (10-20); BUN (Urea Nitrogen) 14 mg/dL (9.8-20.1); Calc. Creatinine Clearance 128 mL/min (70-130); Calcium 7.9 mg/dL (7.8-10.44); Carbon Dioxide 24 mmol/L (23-31); Chloride 102 mmol/L (98-107); Estimated GFR-MDRD 84; Glucose 133 mg/dL (80-115); Sodium 133 mmol/L (136-145)
[2020-07-22] MEDS: Mometasone 100 MCG/PUFF (1 INHALER) INH SCH ×2 (06:03→17:51)
[2020-07-22] MEDS: ALPRAZolam 0.25 MG TAB PO SCH (08:05)
[2020-07-22] MEDS: Potassium Chloride 10 MEQ TAB PO SCH (08:05)
[2020-07-22] MEDS: Enoxaparin Sodium 40 MG/0.4 ML SYRINGE SC SCH ×2 (08:05→20:27)
[2020-07-22] MEDS: Famotidine 20 MG TAB PO SCH ×2 (08:05→20:30)
[2020-07-22] MEDS ORDERED: ALPRAZolam 0.25 MG TAB PO PRN (08:12)
[2020-07-22] MEDS ORDERED: Cyclobenzaprine 10 MG TAB PO PRN (08:12)
[2020-07-22] MEDS: Montelukast Sodium 10 mg Tablet PO SCH (08:23)
[2020-07-22] MEDS: Losartan/Hydrochlorothiazide 100 mg/25 mg Tablet PO SCH (08:23)
[2020-07-22] MEDS ORDERED: Non-Formulary Item 1 EACH (Fluticasone/Umeclidin/Vilanter [Trelegy Ellipta 100-62.5-25] 1 INH SCH (09:00)
[2020-07-22 09:14] LABS: INR-International Normal Ratio 0.9; PTT 33.9 sec (22.9-36.1); Prothrombin Time 12.6 sec (12.0-14.7)
[2020-07-22] MEDS: Senokot S 8.6-50 MG TAB PO PRN (10:50)
[2020-07-22] MEDS: Guaifenesin DM 100-10/5 ML UDCUP PO PRN (10:50)
[2020-07-22] MEDS: HYDROcodone/Acetaminophen 7.5/325 mg Tablet PO PRN ×2 (10:50→17:52)
--- NOTE | 2020-07-22 12:21 | PDOC.HOSPP ---
- Subjective Encounter Date: 07/22/20 Encounter Time: 11:15 Subjective: pt up in bed no complains - Objective Vital Signs & Weight: Vital Signs (12 hours) Temp Pulse Resp BP Pulse Ox 07/22/20 08:00 98.5 F 91 20 124/80 93 L 07/22/20 03:50 99.4 F 90 18 125/77 96 Weight Weight 220 lb 3.869 oz I&O: 07/21/20 07/22/20 07/23/20 06:59 06:59 06:59 Intake Total 400 Balance 400 Result Diagrams: 07/22/20 05:09 07/22/20 05:09 Hospitalist ROS - Review of Systems Respiratory: denies: cough, dry, shortness of breath, hemoptysis, SOB with excertion, pleuritic pain, sputum, wheezing, other Cardiovascular: denies: chest pain, palpitations, orthopnea, paroxysmal noc. dyspnea, edema, light headedness, other Gastrointestinal: denies: nausea, vomiting, abdominal pain, diarrhea, constipation, melena, hematochezia, other - Medication Medications: Active Medications Generic Name Dose Route Start Last Admin Trade Name Freq PRN Reason Stop Dose Admin Acetaminophen 650 mg 07/21/20 17:58 07/21/20 20:28 Acetaminophen 325 Mg Tab PO 650 mg Q4H PRN Administration Headache/Fever/Mild Pain (1-3) Hydrocodone Bitart/Acetaminophen 1 tab 07/21/20 17:58 07/22/20 10:50 Hydrocodone/Acetaminophen 7.5/325 Mg Tablet PO 1 tab Q4H PRN Administration Moderate Pain (4-6) Albuterol Sulfate 2 puff 07/21/20 23:59 07/22/20 11:57 Albuterol 200 Puff (6.7gm Inhaler) INH 2 puff Q6HR MEGHAN Administration Alprazolam 0.25 mg 07/22/20 09:00 07/22/20 08:05 Alprazolam 0.25 Mg Tab PO 0.25 mg DAILY MEGHAN Administration Cyclobenzaprine HCl 10 mg 07/22/20 08:12 07/22/20 10:50 Cyclobenzaprine 10 Mg Tab PO 10 mg TIDPRN PRN Administration Muscle Spasm Enoxaparin Sodium 40 mg 07/21/20 21:00 07/22/20 08:05 Enoxaparin Sodium 40 Mg/0.4 Ml Syringe SC 40 mg 0900,2100 MEGHAN Administration Famotidine 20 mg 07/21/20 21:00 07/22/20 08:05 Famotidine 20 Mg Tab PO 20 mg BID MEGHAN Administration Gabapentin 300 mg 07/21/20 21:00 07/21/20 23:38 Gabapentin 300 Mg Cap PO 300 mg HS MEGHAN Administration Guaifenesin/Dextromethorphan 15 ml 07/21/20 17:58 07/22/20 10:50 Guaifenesin Dm 100-10/5 Ml Udcup PO 15 ml Q4H PRN Administration Cough HCTZ/Losartan Potassium 1 tab 07/22/20 09:00 07/22/20 08:23 Losartan/Hydrochlorothiazide 100 Mg/25 Mg Tablet PO 1 tab DAILY MEGHAN Administration Methylprednisolone Sodium Succinate 40 mg 07/21/20 23:59 07/22/20 10:50 Methylprednisolone Sod Succ 40 Mg Vial IVP 40 mg Q6HR MEGHAN Administration Mometasone Furoate 100 mcg 07/22/20 06:30 07/22/20 06:03 Mometasone 100 Mcg/Puff (1 Inhaler) INH 1 puff BID-RT MEGHAN Administration Montelukast Sodium 10 mg 07/22/20 09:00 07/22/20 08:23 Montelukast Sodium 10 Mg Tablet PO 10 mg DAILY MEGHAN Administration Potassium Chloride 10 meq 07/22/20 08:00 07/22/20 08:05 Potassium Chloride 10 Meq Tab PO 10 meq QAM-WM MEGHAN Administration Senna/Docusate Sodium 2 tab 07/21/20 17:58 07/22/20 10:50 Senokot S 8.6-50 Mg Tab PO 2 tab BIDPRN PRN Administration Constipation Sertraline HCl 100 mg 07/21/20 21:00 07/21/20 23:38 Sertraline Hcl 100 Mg Tab PO 100 mg HS MEGHAN Administration Zolpidem Tartrate 5 mg 07/21/20 18:40 07/21/20 23:37 Zolpidem Tartrate 5 Mg Tab PO 5 mg HS PRN Administration Insomnia - Exam Neck: negative: supple, symmetric, no JVD, no thyromegaly, no lymphadenopathy, no carotid bruit, JVD Heart: negative: RRR, no murmur, no gallops, no rubs, normal peripheral pulses, irregular, diminshed peripheral pulses, murmur present, II/IV, III/IV Respiratory: negative: CTAB, no wheezes, no rales, no ronchi, normal chest expansion, no tachypnea, normal percussion, rales, rhonchi, tachypneic, wheezes Gastrointestinal: negative: soft, non-tender, non-distended, normal bowel sounds, no palpable masses, no hepatomegaly, no splenomegaly, no bruit, no guarding, no rigidity, tender to palpation, distended, diminished bowl sounds, voluntary guarding Hosp A/P (1) SOB (shortness of breath) Code(s): R06.02 - SHORTNESS OF BREATH Status: Acute (2) COVID-19 Code(s): U07.1 - COVID-19 Status: Acute (3) Hypertension Code(s): I10 - ESSENTIAL (PRIMARY) HYPERTENSION Status: Chronic (4) Obesity (BMI 30.0-34.9) Code(s): E66.9 - OBESITY, UNSPECIFIED Status: Chronic - Plan pt up in bed still on oxygen. will continue steroids for now. will check crp/ferritin and see how she does. pulmonary has been consulted. She was tested on 07/16 and thinks she was exposed on the weekend prior to that.
[2020-07-22] MEDS: Gabapentin 300 MG CAP PO SCH (20:32)
[2020-07-22] MEDS ORDERED: Amitriptyline HCl 10 MG TAB PO SCH (21:00)
[2020-07-22] MEDS ORDERED: Atorvastatin Calcium 20 MG TAB PO SCH (21:00)
[2020-07-22] MEDS: Zolpidem Tartrate 5 MG TAB PO PRN (22:23)
[2020-07-22] MEDS ORDERED: Artificial Tear Sol 15 ML BOT EA EYE PRN (23:47)
[2020-07-23] MEDS: Guaifenesin DM 100-10/5 ML UDCUP PO PRN (00:14)
[2020-07-23] MEDS: methylPREDNISolone Sod Succ 40 MG VIAL IVP SCH ×3 (00:14→12:28)
[2020-07-23] MEDS: Albuterol 200 PUFF (6.7GM INHALER) INH SCH ×3 (00:14→12:00)
[2020-07-23] MEDS: Mometasone 100 MCG/PUFF (1 INHALER) INH SCH (06:28)
[2020-07-23] MEDS: Potassium Chloride 10 MEQ TAB PO SCH (08:23)
[2020-07-23] MEDS: Famotidine 20 MG TAB PO SCH (08:23)
[2020-07-23] MEDS: Losartan/Hydrochlorothiazide 100 mg/25 mg Tablet PO SCH (08:23)
[2020-07-23] MEDS: Montelukast Sodium 10 mg Tablet PO SCH (08:23)
[2020-07-23] MEDS: ALPRAZolam 0.25 MG TAB PO SCH (08:23)
[2020-07-23] MEDS: Enoxaparin Sodium 40 MG/0.4 ML SYRINGE SC SCH ×2 (08:24→08:50)
[2020-07-23 08:33] LABS: Prothrombin Time 12.9 sec (12.0-14.7)
[2020-07-23 12:25] VITALS: BP 114/72; TEMP 97.9
--- NOTE | 2020-07-24 00:41 | DIS ---
DATE OF ADMISSION: 07/21/2020 DATE OF DISCHARGE: 07/23/2020 DISCHARGE DIAGNOSES: 1. Coronavirus disease pneumonia. 2. Acute hypoxic respiratory failure. 3. Fever and headache. 4. Hypertension. HOSPITAL COURSE: The patient is a 65-year-old female who initially presented to the hospital with fever and headache, and was recently exposed to COVID pneumonia. This Monday will be 2 weeks in total. She was started on steroids by her primary care doctor and also was given home oxygen. However, she spiked her temperature and she came to the hospital for further evaluation. Patient continued to improve throughout hospital stay. She was put on IV steroids and then transitioned to oral. I have recommended the patient to take her prednisone 10 mg on a daily basis for the next 5-7 days, and then continue to taper her steroids. I will not give her Decadron since she is already on prednisone. She was at room air when I saw her, and I have encouraged her to check her pulse oximetry which she does have at home 3 or 4 times a day, and use oxygen if her sats are less than 95%. I have asked her to quarantine herself and of course come into the hospital if anything changes. Pulmonary was consulted, however, they did not come by and see the patient. She did have a CTA done, which indicated no pulmonary embolism. She just had ground-glass opacities. Her inflammatory markers were checked and they continued to improve. PHYSICAL EXAMINATION: VITAL SIGNS: On discharge, temperature 97.9, 88, 18, 98% on 1 L, 114/72. GENERAL: She is awake, alert, and oriented x3, does not appear in distress. CVS: S1, S2 present. No murmurs, rubs, gallops. DISCHARGE INSTRUCTIONS: Again, she will resume her home medications. I have given her instructions on prednisone, and then she will go ahead and taper the prednisone, and she will follow up with her resident care spec as outpatient. Job ID: [id number]
--- NOTE | 2020-07-25 02:33 | PQF ---
CLINICAL DOCUMENTATION CLARIFICATION FORM: Dear :Bre Mendoza Date / Time: 07/25/2020 02:32 Please exercise your independent, professional judgment in responding to the clarification form. Clinical indicators are provided on the bottom of this form for your review Please check appropriate box(es) to clarify if the following diagnosis has been ruled in our ruled out: Sepsis [ ] Ruled in diagnosis [ ] Continue to treat [ ] Resolved [ ] Ruled out diagnosis [ ] Improving [ ] Cannot rule out diagnosis [ x ] Other diagnosis acute hypoxic resp failure due to covid did not meet sepsis criteria [ ] Unable to determine If ruled in, please specify if: [ ] Sepsis related to Covid19 infection [ ] Sepsis not related to Covid19 infection [ ] Unable to determine Physician Signature: Date/Time: For continuity of documentation, please document condition throughout progress notes and discharge summary. Thank You. To be completed by CDI/Coding staff for physician review: Present Clinical Indicators - Signs / Symptoms / Labs Results and Location in Medical Record [x] Sepsis ED Notes 07/21 [x] Chest Xray: bilateral parechymal opacities Collected 07/21 [x] CC: fever and ANGEL HP 10 [x] COVID PNA with mild respiratory failure HP 07/21 [x] meeting sepsis criteria HP 07/21 [x] Temp=98.7 Pulse=94 Respi=18 KI=999/78 Vital Signs 07/21 [x] WBC:07/21=6.1 07/22=3.3 Laboratory 07/21 [x] Lactic Acid: 07/21=1.7 Laboratory 07/21 Present Risk Factors Results and Location in Medical Record [x] 65 years old female HP 10 [x] ILD HP 10 [x] Former Smoker HP 10 [x] Obesity HP 07/21 [x] COVID PNA HP 07/21 Present Treatments Results and Location in Medical Record [x] Pulmonary Consult Consult 07/21 [x] Azithromycin 500mg Oral MAR 07/21 [x] Ceftriaxone 2gm IV MAR 07/21 [x] Chest Xray Collected 07/21 [x] Sepsis protocol initiated HP 07/21 [x] Oxygen via [place] Vital Signs 07/21 CDS/Telesales Manager Signature: Kellen Salinas Phone #: ext [phone] Date/Time: 07/25/2020 02:32 This is a permanent part of the Medical Record [facility]
== END 2020-07-23 12:24 | disposition home or self-care (01) | DRG 177 ==
LOC: ERS 08:36 → ERHOLD 14:50 → T4-B 22:25
PROVIDERS: ADMIT Emergency Medicine; ATTEND Emergency Medicine
PROC: 8E0ZXY6 Isolation (ICD-10-PCS; principal; 2020-07-21)
DX: U07.1 COVID-19 (principal); J12.89 Other viral pneumonia; J96.01 Acute respiratory failure with hypoxia; J84.9 Interstitial pulmonary disease, unspecified; E78.5 Hyperlipidemia, unspecified; E78.00 Pure hypercholesterolemia, unspecified; I10 Essential (primary) hypertension; Z96.651 Presence of right artificial knee joint; R13.10 Dysphagia, unspecified; F42.9 Obsessive-compulsive disorder, unspecified; F32.9 Major depressive disorder, single episode, unspecified; F41.9 Anxiety disorder, unspecified; E66.9 Obesity, unspecified; Z90.710 Acquired absence of both cervix and uterus; Z87.891 Personal history of nicotine dependence; Z88.1 Allergy status to other antibiotic agents; Z68.37 Body mass index [BMI] 37.0-37.9, adult
CPT/HCPCS: 36415; 71045; 71275; 80048; 80053; 81003; 82728; 83605; 84484; 85025; 85379; 85610; 85730; 86140; 93005; 96365; 96367; 96368; J0456; J0696; J1650; J2405; J2765; J2920; J7620; Q9967

== ENCOUNTER 2020-07-25 21:04 | Inpatient (IN) | payer OTHER ==
[~2020-07-25 21:04] MED LIST: Iopamidol-370 76% 500 ML 1 ML ONE; PROPOFOL 200 MG/20 ML VIAL ONE; Succinylcholine 200 MG/10 ml SYRINGE FS ONE
[2020-07-25 21:38] LABS: #Lymphocytes 0.9 thou/uL (1.20-3.40); #Monocytes 0.5 thou/uL (0.11-0.59); %Basophils 0.4 % (0.0-1.0); %Eosinophils 0.1 % (0.0-10.0); %Lymphocytes 8.3 % (21.0-51.0); %Monocytes 4.3 % (0.0-10.0); %Neutrophils 86.9 % (42.0-75.0); Hemoglobin 13.3 g/dL (12.0-16.0); Mean Corpuscular HGB CONC 34.3 g/dL (32.0-36.0); Mean Corpuscular Hemoglobin 31.1 pg (27.0-31.0); Mean Corpuscular Volume 90.5 fL (78.0-98.0); Mean Platelet Volume 7.5 fL (7.4-10.4); Platelet Count 279 thou/uL (130-400); RBC Distribution Width 11.8 % (11.5-14.5); Red Blood Cell (RBC) Count 4.28 mill/uL (4.20-5.40); White Blood Cell (WBC) Count 10.4 thou/uL (4.8-10.8)
[2020-07-25] MEDS ORDERED: Vancomycin 1 GM/200 ML BAG ONE (21:49)
[2020-07-25] MEDS ORDERED: cefTRIAXone\\ROCEPHIN 2 GM VIAL ONE (21:49)
[2020-07-25] MEDS ORDERED: Cefepime 2 GM VIAL ONE (21:51)
[2020-07-25] MEDS ORDERED: Acetaminophen 500 MG TAB ONE (21:52)
[2020-07-25] MEDS ORDERED: Azithromycin 500 MG VIAL ONE (21:52)
[2020-07-25] MEDS ORDERED: Dexamethasone 10 MG/ML VIAL ONE ×2 (21:52→22:02)
[2020-07-25] MEDS ORDERED: Vancomycin 1.5 GRAM/300 ML BAG 1.5 GM in Premix Bag 1 BAG IVPB SCH (22:00)
[2020-07-25 22:04] LABS: ALT (SGPT) 17 U/L (8-55); AST (SGOT) 38 U/L (5-34); Albumin 4.1 g/dL (3.4-4.8); Alkaline Phosphatase 74 U/L (40-110); Anion Gap 17 mmol/L (10-20); BUN (Urea Nitrogen) 20 mg/dL (9.8-20.1); Bilirubin, Total 0.6 mg/dL (0.2-1.2); Calc. Creatinine Clearance 0 mL/min (70-130); Calcium 9.1 mg/dL (7.8-10.44); Carbon Dioxide 26 mmol/L (23-31); Chloride 98 mmol/L (98-107); Estimated GFR-MDRD 65; Globulin 3.4 g/dL (2.4-3.5); Glucose 128 mg/dL (80-115); Protein, Total 7.5 g/dL (6.0-8.3); Sodium 137 mmol/L (136-145)
--- NOTE | 2020-07-25 22:46 | RAD ---
PORTABLE CHEST: 07/25/20 HISTORY: Recently discharged from hospital. He was admitted for COVID pneumonia. COMPARISON: 07/21/20 chest x-ray and CT examination. Heart size appears enlarged. The parenchymal infiltrative lung changes shows slightly more prominent interstitial alveolar changes as compared to that previous exam. IMPRESSION: Cardiomegaly with pulmonary vascular engorgement. Increased interstitial alveolar lung changes in a s omewhat patchy distribution increased as compared to the prior study. This could represent worsening of pneumonia. Another possibility is that this is COVID pneumonia changes superimposed on pulmonary e niecy. POS: OFF
[2020-07-25] MEDS ORDERED: Acetaminophen 325 MG TAB PO PRN (23:42)
[2020-07-25] MEDS ORDERED: Azithromycin 500 MG in Syringe 0 ML IVPB SCH (23:45)
--- NOTE | 2020-07-26 00:04 | PDOC.EVN ---
Event Note - Event Note Event Note: [id number] HP dictated
[2020-07-26 00:41] LABS: Actual Bicarbonate (HCO3a) 26.3 mEq/L (22-28); Analyzer IN Cardio ER; Base Excess (BEa) 2.5 mEq/L (-2.0 to +3.0); CO2 Tension 37.5 mmHg (35.0-45.0); Calcium, Ionized (arterial) 1.16 mmol/L (1.12-1.30); Carboxyhemoglobin (COHb) 0.3 gm% (0.0-3.0); O2 Tension (PaO2), arterial 61.2 mmHg (> 80.0); Potassium - ABG Lab 3.91 mmol/L (3.70-5.30); pH, Arterial 7.46 (7.35-7.45)
[2020-07-26 00:42] LABS: ALV-art Gradient 533.625 mmHg (0-20); Puncture Site LRA
--- NOTE | 2020-07-26 00:50 | HP ---
CHIEF COMPLAINT: Shortness of breath. HISTORY OF PRESENT ILLNESS: Ms. Hogue is a 65-year-old female, who was just recently discharged from the hospital after being admitted for COVID pneumonia, was brought to the emergency room with weakness and worsening shortness of breath. It was reported that the patient's oxygen saturation was 61% on 2 L/minute nasal cannula. The patient was placed on 15 L by EMS and oxygen saturation was 88%. In the emergency room, the patient was placed on high-flow oxygen with oxygen saturation in the 90s. The patient had increased work of breathing in the 30s. Workup in the emergency room including imaging studies showed worsening of right lower lobe infiltrates. The patient's lactic acid was elevated at 3.9. Blood pressure was low, given IV fluid bolus. D-dimer is elevated at 0.83. CTA of the chest is being done, results are pending. The patient had septic workup done in the ED. The patient was started on broad-spectrum antibiotics. The patient is being admitted to the hospital for further management. PAST MEDICAL HISTORY: 1. Recently diagnosed with COVID pneumonia. 2. Interstitial lung disease? 3. West Nile virus in 2011. 4. Hyperlipidemia. 5. Hypertension. PAST SURGICAL HISTORY: 1. Right total knee replacement. 2. Hysterectomy. 3. Lung biopsy. SOCIAL HISTORY: No history of drug abuse. The patient is a former tobacco user, quit five years ago. FAMILY HISTORY: Reviewed and noncontributory. HOME MEDICATIONS: Please see home medication reconciliation form for updated medications. ALLERGIES: ALLERGIC TO NITROFURANTOIN AND LEVOFLOXACIN. REVIEW OF SYSTEMS: Review of 14 systems is negative except what is mentioned in the history of present illness. PHYSICAL EXAMINATION: GENERAL: The patient is awake, in moderate distress, on high-flow oxygen. VITAL SIGNS: Blood pressure 100/55, pulse is 87, respiratory rate is 20, oxygen saturation is 97% on high-flow oxygen. On presentation, blood pressure systolic was 88 and pulse was 103. Temperature is 98.2. HEAD AND NECK: Normocephalic, atraumatic. NECK: Supple. CHEST: Coarse bilateral breath sounds, respirations are labored. HEART: S1, S2. Regular, tachycardic. ABDOMEN: Soft, nontender. Bowel sounds present. NEUROLOGIC: Awake, moving extremities. PSYCH: Unable to assess. EXTREMITIES: No clubbing or cyanosis. IMAGING DATA: Chest x-ray as mentioned above in the history of present illness. LABORATORY DATA: D-dimer is 0.83. Lactic acid 3.9. WBC is 10.4 with hemoglobin of 13.3, lymphocytes are 0.9, low. BNP is 13.1. ASSESSMENT: 1. Acute hypoxic respiratory failure. 2. COVID-19 pneumonia. 3. Healthcare-associated pneumonia cannot be entirely ruled out. 4. Sepsis. 5. Interstitial lung disease ?history. 6. Hypertension. 7. Hyperlipidemia. PLAN: 1. Admit to IMCU. 2. Continue with high-flow oxygen. Titrate oxygen to keep saturation more than 92%. 3. IV dexamethasone. 4. Continue with broad-spectrum antibiotics for now, reassess in a.m. 5. Consult Pulmonary for evaluation and further management. 6. CTA of the chest is being ordered, to follow the results. 7. DVT prophylaxis as appropriate. 8. GI prophylaxis. 9. Expected length of stay, 2 midnights or more. Job ID: [id number]
[2020-07-26 03:05] VITALS: BMI 36.7
[2020-07-26] MEDS ORDERED: ALPRAZolam 0.25 MG TAB PO PRN (03:12)
[2020-07-26 04:12] LABS: #Lymphocytes 0.5 thou/uL (1.20-3.40); #Monocytes 0.4 thou/uL (0.11-0.59); #Neutrophils 7.9 thou/uL (1.40-6.50); %Basophils 0.2 % (0.0-1.0); %Eosinophils 0.4 % (0.0-10.0); %Lymphocytes 5.1 % (21.0-51.0); %Monocytes 4.1 % (0.0-10.0); %Neutrophils 90.2 % (42.0-75.0); Hemoglobin 12.5 g/dL (12.0-16.0); Mean Corpuscular HGB CONC 33.7 g/dL (32.0-36.0); Mean Corpuscular Hemoglobin 31.3 pg (27.0-31.0); Mean Corpuscular Volume 92.9 fL (78.0-98.0); Mean Platelet Volume 7.3 fL (7.4-10.4); Platelet Count 233 thou/uL (130-400); RBC Distribution Width 11.7 % (11.5-14.5); White Blood Cell (WBC) Count 8.7 thou/uL (4.8-10.8)
[2020-07-26 04:34] LABS: Anion Gap 14 mmol/L (10-20); BUN (Urea Nitrogen) 20 mg/dL (9.8-20.1); Calc. Creatinine Clearance 116 mL/min (70-130); Calcium 8.2 mg/dL (7.8-10.44); Carbon Dioxide 22 mmol/L (23-31); Chloride 104 mmol/L (98-107); Estimated GFR-MDRD 78; Glucose 154 mg/dL (80-115); Potassium 4.4 mmol/L (3.5-5.1); Sodium 136 mmol/L (136-145)
[2020-07-26] MEDS: Cefepime 2 GM in Sodium Chloride 0.9% 100 ML IVPB SCH ×3 (06:04→20:59)
[2020-07-26] MEDS: Famotidine/PF 20 mg/2ml Vial SLOW IVP SCH ×2 (07:34→21:00)
--- NOTE | 2020-07-26 08:04 | CT ---
PRELIMINARY REPORT/[facility]/EMERGENCY AFTER HOURS PROCEDURE EXAM: CTA Chest with Intravenous Contrast CLINICAL HISTORY: 65 yo F with PMH of ILD and recent diagnosis of COVID. WEAKNESS, DYSPNEA, +DDIMER TECHNIQUE: Axial CTA images of the chest with intravenous contrast. Three-dimensional MIP/volume rendered reform ations were performed. CONTRAST: With; ISOVUE 370,100mL COMPARISON: 07/21/2020. FINDINGS: PULMONARY ARTERIES There is no intraluminal filling defect suspicious for PE. AORTA No thoracic aortic aneurysm or dissection. LUNGS Worsening extensive groundglass infiltrates throughout the bilateral lungs. No pulmonary mass. No fo meliza airspace consolidation. PLEURAL SPACES No pleural effusion. No pneumothorax. HEART AND MEDIASTINUM Mild cardiomegaly. No significant pericardial effusion. The coronary arteries are calcified. LYMPH NODES No lymphadenopathy. BONES No focal osseous abnormality or acute fracture. Multilevel degenerative disc disease. Tendon anchor s in the proximal right humerus. CHEST WALL AND UPPER ABDOMEN Images through the upper abdomen are unremarkable. The chest wall is unremarkable. IMPRESSION: Worsening extensive groundglass infiltrates throughout the lungs bilaterally since 07/21/2020, concer jakob for an infectious process. The findings may represent a Covid 19 infection in the appropriate clinical setting. Mild cardiomegaly with coronary artery disease. ELECTRONICALLY SIGNED BY: Robert Calloway MD Jul 26, 2020 1:15:03 AM CDT This report is intended for review by the ordering physician only, in accordance of law. If you recei ve this report in error, please call [facility] at [phone]. FINAL REPORT Emergent after hours CT angiogram thorax with IV contrast and 3-D reconstructions HISTORY: Elevated D-dimer. Recent diagnosis of COVID. Weakness and dyspnea. COMPARISON: 07/21/2020. IMPRESSION: 1. No filling defects are seen in pulmonary arteries to suggest a pulmonary embolus. 2. Interval worsening of groundglass opacities with more diffuse groundglass opacities now seen throu ghout the lungs bilaterally likely secondary to worsening COVID pneumonia. Findings are in agreement with preliminary report by [facility]. Code QA Transcribed Date/Time: 07/26/2020 9:55 AM
[2020-07-26] MEDS ORDERED: Enoxaparin Sodium 40 MG/0.4 ML SYRINGE SC SCH ×2 (09:00→21:00)
[2020-07-26] MEDS ORDERED: FLU VACC QS2020-21(6MOS UP)/PF 60 MCG/0.5 ML SYRINGE IM ONE (09:00)
[2020-07-26] MEDS ORDERED: Vancomycin HCl 1 GM in Sodium Chloride 0.9% 250 ML 300 ML IVPB SCH (09:00)
[2020-07-26] MEDS ORDERED: Vancomycin HCl 1.25 GM in Sodium Chloride 0.9% 250 ML 250 ML IVPB SCH (09:00)
[2020-07-26 09:02] LABS: Vancomycin, Trough 11.6 ug/mL
[2020-07-26] MEDS: Vancomycin HCl 1.25 GM in Sodium Chloride 0.9% 250 ML 250 ML IVPB SCH ×2 (11:34→23:46)
--- NOTE | 2020-07-26 13:17 | CON ---
DATE OF CONSULTATION: 07/26/2020 CONSULTING PHYSICIAN: [facility]ist [facility]. REASON FOR CONSULTATION: COVID-19 pneumonia. HISTORY OF PRESENT ILLNESS: The patient is a 65-year-old female with a history of baseline interstitial lung disease, diagnosed several years ago by open lung biopsy. She was in the hospital earlier in the week with COVID-19 infection. She apparently improved to the point where she was sent home. Her , who is a former nurse at this hospital, states that the patient was not doing well at home. He had rigged up an old CPAP apparatus along with 2 concentrators to try to oxygenate her, but was not successful in doing that. During her previous hospitalization, Pulmonary Service was not consulted to see the patient. PAST MEDICAL HISTORY: 1. Interstitial lung disease. 2. COVID infection. 3. West Nile infection in 2011. 4. Hyperlipidemia. 5. Hypertension. PAST SURGICAL HISTORY: 1. She had a right total knee replacement. 2. Hysterectomy. 3. Open lung biopsy by Dr. Umanzor. SOCIAL HISTORY: Quit smoking more than 5 years ago. Does not consume alcohol. FAMILY MEDICAL HISTORY: Unremarkable. ALLERGIES: NITROFURANTOIN AND LEVOFLOXACIN. MEDICATIONS PRIOR TO ADMISSION: 1. Prednisone, unknown dose daily. 2. Trelegy Ellipta 1 puff daily. 3. Losartan/hydrochlorothiazide 100/25 one daily. 4. Flexeril 10 mg t.i.d. 5. Elavil 25 mg nightly. 6. Xanax 0.25 mg b.i.d. 7. Zoloft 100 mg nightly. 8. Potassium 10 mEq daily. 9. Protonix 40 mg daily. 10. Montelukast 10 mg daily. 11. Zolpidem CR 5 mg at night as needed. 12. Zocor 40 mg daily. REVIEW OF SYSTEMS: Remarkable for shortness of breath, dry cough, otherwise negative. PHYSICAL EXAMINATION: VITAL SIGNS: O2 saturation running in the high 90s on 56% high-flow oxygen, pulse 82, blood pressure 133/80, respiratory rate in the low 30s. GENERAL: She does appear dyspneic at rest, but is talkative and pleasant. HEENT: Unremarkable. NECK: No adenopathy or JVD. LUNGS: Crackles bilaterally. CARDIOVASCULAR: S1 and S2, regular. ABDOMEN: Soft and nontender to palpation. EXTREMITIES: No clubbing, cyanosis, or edema. IMAGING STUDIES: Her CT of the chest showed diffuse bilateral infiltrates. LABORATORY DATA: White blood cell count 8.7, hematocrit 37, and platelet count 233. D-dimer 0.83. PH of 7.46, pCO2 of 37, pO2 of 61 on 30 L high-flow nasal cannula, FiO2 of 90%. Sodium 136, potassium 4.4, chloride 104, CO2 of 22, BUN 20, creatinine 0.7, glucose 154. BNP was 13. ASSESSMENT: 1. COVID-19 pneumonia. 2. Acute hypoxic respiratory failure. 3. Underlying interstitial lung disease and probable chronic obstructive pulmonary disease. PLAN: 1. I have increased her anticoagulation and her steroids. She has been placed on broad-spectrum IV antibiotics, but I am not sure any of that is going to help because this is most likely viral pneumonia. 2. She needs to continue on her Zoloft, such that she will not get withdrawal from the medication. She also needs to continue on her Zocor. I spoke with her over the phone. The above encompassed 75 minutes time, of that time greater than 50% spent with the patient and/or the patient's unit in the hospital. Job ID: [id number]
[2020-07-26] MEDS: Hydrocortisone Sod Succ/PF 100 mg/2 ml Vial IVP SCH ×3 (13:30→23:47)
[2020-07-26] MEDS: Albuterol Sulfate 2.5 mg/3 ml Neb NEB SCH ×2 (14:16→20:30)
[2020-07-26] MEDS: Lorazepam 0.5 MG TAB PO PRN (17:34)
--- NOTE | 2020-07-26 18:11 | PDOC.HOSPP ---
- Subjective Encounter Date: 07/26/20 Encounter Time: 05:30 Subjective: F/u: COVID pneumonia The patient is still very short of breath and gets anxious at times and requesting ativan . She wants to be a full code because she has a two years old grand-daughter She has a productive cough of some brownish sputum. No chest pain. She has history of interstitial lung disease her son is real estate agent and got COVID. She states her has it as well and they are recovering - Objective Vital Signs & Weight: Vital Signs (12 hours) Pulse Resp Pulse Ox 07/26/20 14:28 72 35 H 99 07/26/20 08:00 93 L Weight Weight 214 lb Most Recent Monitor Data Heart Rate from ECG 73 NIBP 120/55 NIBP BP-Mean 76 Respiration from ECG 40 SpO2 95 I&O: 07/25/20 07/26/20 07/27/20 06:59 06:59 06:59 Intake Total 100 Balance 100 Result Diagrams: 07/26/20 04:00 07/26/20 04:00 Additional Labs: Accuchecks 07/26/20 02:18 POC Glucose 156 H Hospitalist ROS - Review of Systems Constitutional: denies: fever, chills - Medication Medications: Active Medications Generic Name Dose Route Start Last Admin Trade Name Freq PRN Reason Stop Dose Admin Albuterol Sulfate 2.5 mg 07/26/20 13:00 07/26/20 14:16 Albuterol Sulfate 2.5 Mg/3 Ml Neb NEB Not Given [id number] MGEHAN Albuterol/Ipratropium 3 ml 07/26/20 13:00 07/26/20 14:28 Ipratropium/Albuterol Sulfate 3 Ml Neb NEB 3 ml [id number] MEGHAN Administration Famotidine 20 mg 07/26/20 09:00 07/26/20 07:34 Famotidine/Pf 20 Mg/2ml Vial SLOW IVP 20 mg Q12HR MEGHAN Administration Hydrocortisone Sodium Succinate 100 mg 07/26/20 12:00 07/26/20 17:34 Hydrocortisone Sod Succ/Pf 100 Mg/2 Ml Vial IVP 100 mg Q6HR MEGHAN Administration Cefepime HCl 2 gm/ Sodium 100 mls @ 200 mls/hr 07/26/20 06:00 07/26/20 13:30 Chloride IVPB 100 mls Q8HR MEGHAN Administration Vancomycin HCl 1.25 gm/ Sodium 250 mls @ 166.667 mls/hr 07/26/20 11:00 07/26/20 11:34 Chloride IVPB 250 mls 1100,2300 MEGHAN Administration Lorazepam 0.5 mg 07/26/20 17:26 07/26/20 17:34 Lorazepam 0.5 Mg Tab PO 0.5 mg BIDPRN PRN Administration Anxiety - Exam General Appearance: NAD, awake alert General - other findings: obese Eye: PERRL, anicteric sclera ENT: normocephalic atraumatic, no oropharyngeal lesions Neck: no JVD Heart: RRR, no murmur, no gallops, no rubs Respiratory: CTAB, no wheezes, no rales, no ronchi Gastrointestinal: soft, non-tender, non-distended, normal bowel sounds, no hepatomegaly Extremities: no cyanosis, no clubbing, no edema Skin: normal turgor, no lesions, no rashes Neurological: cranial nerve grossly intact, normal sensation to touch, no weakness Hosp A/P - Plan Chest X ray : cardiomegaly with pulmonary vascular engorgement, possible worsening pneumonia. No PE CTA chest: worsening extensive ground glass infiltrates This is a 65 year old female with interstitial lung disease who presented with shortness of breath, found to have COVID Acute hypoxic respiratory failure secondary to COVID pneumonia - CTA chest showed worsening bilateral ground glass infiltrates - continue vanc, cefepime, azithromycin - check sputum culture - she is on high flow nasal cannula - d-dimer mildly elevated at 0.83. CTA showed no PE but she has been started on therapeutic lovenox Interstitial lung disease - continue singulair, inhalers Hypertension - hold home meds for now, BP 120 without meds Anxiety - started ativan 0.5 mg bid prn which she takes at home
[2020-07-26] MEDS: Mometasone 100 MCG/PUFF (1 INHALER) INH SCH (20:31)
[2020-07-26] MEDS: Atorvastatin Calcium 20 MG TAB PO SCH (20:58)
[2020-07-26] MEDS: Enoxaparin Sodium 80 MG/0.8 ML SYRINGE SC SCH (20:59)
[2020-07-26] MEDS: Azithromycin 500 MG in Sodium Chloride 0.9% 250 ML 250 ML IVPB SCH (20:59)
[2020-07-26] MEDS ORDERED: Non-Formulary Item 1 EACH (Sertraline Hcl [Zoloft] 20 MG/1 ML Ml) PO SCH (21:00)
[2020-07-26] MEDS ORDERED: Simvastatin 40 MG TAB PO SCH (21:00)
[2020-07-26] MEDS ORDERED: Dexamethasone 6 MG in Sodium Chloride 0.9% 50 ML IVPB SCH (23:59)
[2020-07-27] MEDS: Albuterol Sulfate 2.5 mg/3 ml Neb NEB SCH ×4 (01:19→18:49)
[2020-07-27] MEDS: Cefepime 2 GM in Sodium Chloride 0.9% 100 ML IVPB SCH ×3 (05:52→21:21)
[2020-07-27] MEDS: Hydrocortisone Sod Succ/PF 100 mg/2 ml Vial IVP SCH ×4 (05:52→23:11)
[2020-07-27] MEDS: Enoxaparin Sodium 80 MG/0.8 ML SYRINGE SC SCH ×2 (08:32→20:09)
[2020-07-27] MEDS: Montelukast Sodium 10 mg Tablet PO SCH (08:32)
[2020-07-27] MEDS: Famotidine/PF 20 mg/2ml Vial SLOW IVP SCH ×2 (08:33→21:53)
[2020-07-27] MEDS ORDERED: Non-Formulary Item 1 EACH (Fluticasone/Umeclidin/Vilanter [Trelegy Ellipta 100-62.5-25] 1 PO SCH (09:00)
[2020-07-27] MEDS: Mometasone 100 MCG/PUFF (1 INHALER) INH SCH ×2 (09:38→18:27)
--- NOTE | 2020-07-27 10:48 | PRG ---
DATE OF SERVICE: 07/27/2020 SUBJECTIVE: This morning, she is in MICU on high-flow saturations are 92% to 93%, pulse 80, respirations 18, blood pressure 130/80. She is short of breath. She is anxious. OBJECTIVE: CHEST: No wheezing. No crackles. CARDIAC: Normal S1, S2. No gallops. ABDOMEN: No masses. IMPRESSION AND PLAN: 1. Joel positive pneumonia, respiratory failure, acute respiratory distress syndrome. 2. Previous West Nile with chronic aspiration. 3. Anxiety, chronic cough. PLAN: I have added two bags of plasma to her present regime. She is not a candidate for any of the formal treatment including remdesivir. Otherwise, I agree with antibiotics, Zithromax, Maxipime, vancomycin. We will deescalate antibiotics once we get all cultures back. Job ID: [id number]
[2020-07-27] MEDS: Lorazepam 0.5 MG TAB PO PRN (10:58)
[2020-07-27] MEDS: Vancomycin HCl 1.25 GM in Sodium Chloride 0.9% 250 ML 250 ML IVPB SCH ×2 (10:58→23:11)
[2020-07-27] MEDS: Ipratropium/Albuterol Sulfate 4 GM AER IH SCH ×2 (13:00→19:30)
[2020-07-27] MEDS ORDERED: ALPRAZolam 0.5 MG TAB PO PRN (16:15)
--- NOTE | 2020-07-27 17:39 | PDOC.HOSPP ---
- Subjective Encounter Date: 07/27/20 Encounter Time: 11:30 Subjective: F/u: COVID The patient contiues to have a cough which is only occasionally productive. She is still short of breath and states she gets a lot of anxiety when she is short of breath. She complains she is claustrophobic . She is fearful she may not survive . She states nurses have been praying with her. She would be inte rested in spiritual care seeing her - Objective Vital Signs & Weight: Vital Signs (12 hours) Pulse Ox 07/27/20 07:36 92 L 07/27/20 07:09 92 L Weight Weight 214 lb Most Recent Monitor Data Heart Rate from ECG 68 NIBP 159/85 NIBP BP-Mean 109 Respiration from ECG 42 SpO2 89 I&O: 07/26/20 07/27/20 07/28/20 06:59 06:59 06:59 Intake Total 100 Balance 100 Result Diagrams: 07/26/20 04:00 07/26/20 04:00 Hospitalist ROS - Review of Systems Constitutional: denies: fever, chills - Medication Medications: Active Medications Generic Name Dose Route Start Last Admin Trade Name Freq PRN Reason Stop Dose Admin Acetaminophen 650 mg 07/25/20 23:42 07/26/20 21:14 Acetaminophen 325 Mg Tab PO 650 mg Q4H PRN Administration Headache/Fever/Mild Pain (1-3) Albuterol Sulfate 2.5 mg 07/26/20 13:00 07/27/20 10:49 Albuterol Sulfate 2.5 Mg/3 Ml Neb NEB Not Given [id number] MEGHAN Albuterol/Ipratropium 0 gm 07/27/20 13:00 07/27/20 13:00 Ipratropium/Albuterol Sulfate 4 Gm Aer IH 1 inh [id number] MEGHAN Administration Alprazolam 0.5 mg 07/27/20 16:15 07/27/20 16:29 Alprazolam 0.5 Mg Tab PO 0.5 mg TIDPRN PRN Administration Restlessness Atorvastatin Calcium 20 mg 07/26/20 21:00 07/26/20 20:58 Atorvastatin Calcium 20 Mg Tab PO 20 mg HS MEGHAN Administration Enoxaparin Sodium 70 mg 07/26/20 21:00 07/27/20 08:32 Enoxaparin Sodium 80 Mg/0.8 Ml Syringe SC 70 mg 0900,2100 MEGHAN Administration Famotidine 20 mg 07/26/20 09:00 07/27/20 08:33 Famotidine/Pf 20 Mg/2ml Vial SLOW IVP 20 mg Q12HR MEGHAN Administration Hydrocortisone Sodium Succinate 100 mg 07/26/20 12:00 07/27/20 16:29 Hydrocortisone Sod Succ/Pf 100 Mg/2 Ml Vial IVP 100 mg Q6HR MEGHAN Administration Cefepime HCl 2 gm/ Sodium 100 mls @ 200 mls/hr 07/26/20 06:00 07/27/20 14:00 Chloride IVPB 100 mls Q8HR MEGHNA Administration Azithromycin 500 mg/ Sodium 250 mls @ 250 mls/hr 07/26/20 22:00 07/26/20 20:59 Chloride IVPB 250 mls 2200 MEGHAN Administration Vancomycin HCl 1.25 gm/ Sodium 250 mls @ 166.667 mls/hr 07/26/20 11:00 07/27/20 10:58 Chloride IVPB 250 mls 1100,2300 MEGHAN Administration Mometasone Furoate 100 mcg 07/26/20 18:30 07/27/20 09:38 Mometasone 100 Mcg/Puff (1 Inhaler) INH Not Given BID-RT MEGHAN Montelukast Sodium 10 mg 07/27/20 09:00 07/27/20 08:32 Montelukast Sodium 10 Mg Tablet PO 10 mg DAILY MEGHAN Administration Sertraline HCl 100 mg 07/26/20 21:00 07/26/20 20:59 Sertraline Hcl 100 Mg Tab PO 100 mg HS MEGHAN Administration Sodium Chloride 10 ml 07/27/20 09:00 07/27/20 08:33 Flush - Normal Saline 10 Ml Syringe IVF 10 ml Q12HR MEGHAN Administration - Exam General Appearance: NAD, awake alert Eye: PERRL, anicteric sclera ENT: normocephalic atraumatic, no oropharyngeal lesions Neck: no JVD Heart: RRR, no murmur, no gallops, no rubs Respiratory - other findings: diminished breath sounds bilaterally Gastrointestinal: soft, non-tender, non-distended, normal bowel sounds Extremities: no cyanosis, no clubbing, no edema Skin: normal turgor, no lesions, no rashes Hosp A/P - Plan Chest X ray : cardiomegaly with pulmonary vascular engorgement, possible worsening pneumonia. No PE CTA chest: worsening extensive ground glass infiltrates This is a 65 year old female with interstitial lung disease who presented with shortness of breath, found to have COVID Acute hypoxic respiratory failure secondary to COVID pneumonia - she is still on high flow nasal cannula . CTA chest showed worsening bilateral ground glass infiltrates - continue vanc, cefepime, azithromycin. Sputum culture shows saliva. - continue therapeutic lovenox since d-dimer mildly elevated - pulmonary following and plans to order convalescent plasma today Interstitial lung disease - continue singulair, inhalers Hypertension - BP 130-160, consider resuming home meds if persistently elevated Anxiety - started ativan 0.5 mg bid prn which she takes at home Dispo: pending improvement in oxygenation
[2020-07-27] MEDS: Atorvastatin Calcium 20 MG TAB PO SCH (20:08)
[2020-07-27] MEDS: Lorazepam 2 MG/ML VIAL SLOW IVP PRN (20:09)
[2020-07-27] MEDS ORDERED: Amitriptyline HCl 25 MG TAB PO SCH (21:00)
[2020-07-27] MEDS: Azithromycin 500 MG in Sodium Chloride 0.9% 250 ML 250 ML IVPB SCH (21:21)
[2020-07-27 21:22] LABS: Bacteria/HPF None Seen HPF (None Seen); Bilirubin Negative (Negative); Blood, Urine Negative (Negative); Clarity Clear (Clear); Glucose, Urine (Dipstick) Normal (Negative); Ketone, Urine 10 mg/dL (Negative); Leukocyte Negative Leu/uL (Negative); Nitrite Negative (Negative); Protein, Urine (Dipstick) 50 mg/dL (Neg-Trace); RBC/HPF 0-3 HPF (0-3); Specific Gravity, Urine 1.034 (1.002-1.036); Squamous Epithelial None Seen HPF (0-3); Urobilinogen Normal mg/dL (Less than 2); WBC/HPF 0-3 HPF (0-3)
[2020-07-27 21:25] LABS: Urine Culture Reflex No No
[2020-07-28 00:48] LABS: Actual Bicarbonate (HCO3a) 20.5 mEq/L (22-28); Base Excess (BEa) -2.9 mEq/L (-2.0 to +3.0); CO2 Tension 31.6 mmHg (35.0-45.0); Calcium, Ionized (arterial) 1.17 mmol/L (1.12-1.30); Carboxyhemoglobin (COHb) 0.3 gm% (0.0-3.0); Hemoglobin (Hb) 12.1 g/dL (12.0-16.0); O2 Tension (PaO2), arterial 68.9 mmHg (> 80.0); pH, Arterial 7.43 (7.35-7.45)
[2020-07-28] MEDS: Lorazepam 2 MG/ML VIAL SLOW IVP PRN ×5 (01:44→20:32)
[2020-07-28] MEDS: Ipratropium/Albuterol Sulfate 4 GM AER IH SCH ×4 (02:00→19:08)
[2020-07-28] MEDS: Albuterol Sulfate 2.5 mg/3 ml Neb NEB SCH ×4 (03:30→19:06)
[2020-07-28] MEDS ORDERED: Propofol 1,000 MG/100 ML VIAL IV ONE ×2 (04:03→05:02)
[2020-07-28 05:04] LABS: Actual Bicarbonate (HCO3a) 21.5 mEq/L (22-28); Base Excess (BEa) -3.3 mEq/L (-2.0 to +3.0); CO2 Tension 37.8 mmHg (35.0-45.0); Calcium, Ionized (arterial) 1.16 mmol/L (1.12-1.30); Carboxyhemoglobin (COHb) 0.3 gm% (0.0-3.0); Hemoglobin (Hb) 11.7 g/dL (12.0-16.0); pH, Arterial 7.37 (7.35-7.45)
[2020-07-28 05:10] LABS: Puncture Site L RADIAL
[2020-07-28] MEDS: Propofol 1,000 MG/100 ML VIAL IV PRN ×5 (06:00→22:12)
[2020-07-28] MEDS ORDERED: Lorazepam 2 MG/ML VIAL ONE (06:07)
[2020-07-28] MEDS: Hydrocortisone Sod Succ/PF 100 mg/2 ml Vial IVP SCH (06:09)
[2020-07-28] MEDS: Cefepime 2 GM in Sodium Chloride 0.9% 100 ML IVPB SCH ×3 (06:09→21:31)
[2020-07-28] MEDS ORDERED: DISCONTINUE PREVIOUS NARCOTIC PAIN MEDICATIONS AND BENZODIAZEPINES FS SCH (06:15)
[2020-07-28] MEDS ORDERED: Fentanyl BOLUS 250 ML IVPB PRN (06:15)
[2020-07-28] MEDS ORDERED: Morphine 2 MG/ML VIAL SLOW IVP PRN (06:15)
[2020-07-28] MEDS ORDERED: Propofol BOLUS 1,000 MG/100 ML VIAL IV PRN (06:15)
[2020-07-28] MEDS: fentaNYL Citrate/PF 2,000 MCG in Sodium Chloride 0.9% 60 ML IV SCH ×2 (07:21→23:03)
--- NOTE | 2020-07-28 07:43 | RAD ---
EXAM: XR Chest 1 View Portable PROVIDED CLINICAL HISTORY: Hypoxia COMPARISON: 07/25/2020 FINDINGS: Evaluation is limited by patient body habitus. The cardiac silhouette remains enlarged. Prominence of the pulmonary vasculature and pulmonary interstitium are redemonstrated. Bilateral airspace disease is again seen. No large effusion or evidence for pneumothorax. IMPRESSION: Stable radiographic appearance of the chest.
--- NOTE | 2020-07-28 07:50 | RAD ---
EXAM: XR Chest 1 View Portable PROVIDED CLINICAL HISTORY: Hypoxia COMPARISON: 07/28/2020 12:50 AM FINDINGS: Cardiac and mediastinal silhouette is unchanged in appearance. Interval placement of endotracheal tub e, tip of which projects in the expected region of the thoracic inlet. Interval placement of enteric catheter, the terminal aspects of which are not imaged but are below the diaphragm. Extensive bilateral interstitial and airspace disease persists. There is no pleural fluid or pneumothorax evident with limitations due to the supine nature the study. IMPRESSION: Interval support apparatus as described.
[2020-07-28] MEDS: Mometasone 100 MCG/PUFF (1 INHALER) INH SCH ×2 (08:16→19:07)
[2020-07-28 09:50] LABS: Hemoglobin 11.2 g/dL (12.0-16.0); Mean Corpuscular HGB CONC 35.3 g/dL (32.0-36.0); Mean Corpuscular Hemoglobin 32.1 pg (27.0-31.0); Mean Corpuscular Volume 90.8 fL (78.0-98.0); Mean Platelet Volume 7.5 fL (7.4-10.4); Platelet Count 258 thou/uL (130-400); RBC Distribution Width 11.5 % (11.5-14.5); Red Blood Cell (RBC) Count 3.49 mill/uL (4.20-5.40); White Blood Cell (WBC) Count 15.5 thou/uL (4.8-10.8)
[2020-07-28] MEDS ORDERED: REMDESIVIR (EUA) 200 MG in Sodium Chloride 0.9% 250 ML 210 ML IV SCH (10:00)
[2020-07-28] MEDS: Enoxaparin Sodium 80 MG/0.8 ML SYRINGE SC SCH ×2 (10:00→20:31)
[2020-07-28] MEDS: hydrALAZINE 25 MG TAB PO SCH ×3 (10:01→20:32)
[2020-07-28] MEDS: Famotidine/PF 20 mg/2ml Vial SLOW IVP SCH ×2 (10:01→20:33)
[2020-07-28] MEDS: Montelukast Sodium 10 mg Tablet PO SCH (10:02)
[2020-07-28 10:09] LABS: Anion Gap 13 mmol/L (10-20); BUN (Urea Nitrogen) 26 mg/dL (9.8-20.1); Calc. Creatinine Clearance 128 mL/min (70-130); Calcium 8.2 mg/dL (7.8-10.44); Carbon Dioxide 20 mmol/L (23-31); Chloride 112 mmol/L (98-107); Estimated GFR-MDRD 87; Glucose 125 mg/dL (80-115); Magnesium 2.2 mg/dL (1.6-2.6); Phosphorus 3.1 mg/dL (2.3-4.7); Potassium 3.4 mmol/L (3.5-5.1); Sodium 142 mmol/L (136-145)
[2020-07-28] MEDS: Losartan/Hydrochlorothiazide 100 mg/25 mg Tablet PO SCH (10:38)
[2020-07-28] MEDS: Sodium Chloride 0.9% 1,000 ML IV SCH (10:41)
--- NOTE | 2020-07-28 12:25 | RAD ---
EXAM: Single view of the chest HISTORY: Central line placement. Respiratory failure COMPARISON: 07/28/2020 FINDINGS: Single view of the chest shows an enlarged but stable cardiomediastinal silhouette. A righ t IJ central venous catheter seen with its tip in the superior vena cava. No pneumothorax is seen. The endotracheal tube and NG tube are unchanged in position. Diffuse multifocal mixed opacities are seen in the lungs. No acute osseous abnormality. IMPRESSION: 1. Status post central line placement without evidence of complication 2. Stable multifocal infiltrates
[2020-07-28] MEDS: methylPREDNISolone Sod Succ 40 MG VIAL IVP SCH ×3 (12:28→23:56)
--- NOTE | 2020-07-28 17:41 | OP ---
DATE OF PROCEDURE: 07/28/[address] Rodgers with Critical Care. PROCEDURE PERFORMED: Central line placement. INDICATIONS: 1. Acute respiratory failure. 2. Shock. 3. COVID pneumonia needing invasive monitoring, multiple medications. CONSENT: Emergent secondary to above indication. POSITIONING: The patient was placed in Trendelenburg position with her head turned to the left. LOCATION: Right IJ. CATHETER: A 7-Estonian 20 cm triple-lumen venous catheter. DESCRIPTION OF PROCEDURE: The patient was prepped and draped in the usual fashion. Hand hygiene was completed prior to the procedure. Sterile gloves, gown, hair protection, eye protection were donned. The skin was prepped with 4% chlorhexidine wash. Drape was applied to the patient. The catheter was flushed prior to the procedure. The right IJ was identified using ultrasound guidance. 5 mL of 1% lidocaine without epinephrine was instilled into the skin and into the tissues above the IJ. Next, an introducer needle 18-gauge was introduced x1 attempt to the right IJ in a central approach. Dark venous blood was returned. The syringe was removed. A guidewire was then placed into the right IJ, watching for ectopy. There was no ectopy on the monitor easily placing the guidewire. The needle was removed over the guidewire. A single stab incision with an 11 blade was made at the insertion of the skin to the guidewire. The blade was then retracted. A dilator was passed over the wire into the IJ. Pressure was applied and the guidewire was removed. Next, a flushed catheter was placed using Seldinger technique over the wire. The wire was then removed from the body. The catheter was secured at 16 cm with three sutures. Blood was returned in all three ports. These were flushed and caps were placed. Dressing was applied over the site. The patient remained stable throughout the procedure. Sharps were disposed of. Immediate complications none. Total blood loss less than 10 mL. X-ray is being obtained now and we will confirm placement. The patient tolerated procedure well. No further intervention. Job ID: [id number]
--- NOTE | 2020-07-28 18:44 | PDOC.HOSPP ---
- Subjective Encounter Date: 07/28/20 Encounter Time: 08:00 Subjective: Patient desaturated on high flow last night and was subsequently intubated. Her saturation was 89% on 85% FiO2. She was also started on IV fluids due to low urine output. - Objective Vital Signs & Weight: Vital Signs (12 hours) Pulse Resp BP 07/28/20 15:11 58 L 139/73 07/28/20 14:50 56 L 142/77 H 07/28/20 13:17 55 L 07/28/20 10:33 80 07/28/20 10:01 52 L 139/69 07/28/20 10:00 22 H 07/28/20 08:17 49 L 178/82 H 07/28/20 08:00 22 H Weight Weight 214 lb Most Recent Monitor Data Heart Rate from ECG 68 NIBP 147/77 NIBP BP-Mean 100 Respiration from ECG 25 SpO2 86 I&O: 07/27/20 07/28/20 07/29/20 06:59 06:59 06:59 Intake Total 1170 0 Output Total 1670 Balance -500 0 Result Diagrams: 07/28/20 09:36 07/28/20 09:36 Hospitalist ROS - Review of Systems Constitutional: denies: fever, chills - Medication Medications: Active Medications Generic Name Dose Route Start Last Admin Trade Name Freq PRN Reason Stop Dose Admin Acetaminophen 650 mg 07/25/20 23:42 07/26/20 21:14 Acetaminophen 325 Mg Tab PO 650 mg Q4H PRN Administration Headache/Fever/Mild Pain (1-3) Albuterol Sulfate 2.5 mg 07/26/20 13:00 07/28/20 13:17 Albuterol Sulfate 2.5 Mg/3 Ml Neb NEB 2.5 mg [id number] MEGHAN Administration Albuterol/Ipratropium 0 gm 07/27/20 13:00 07/28/20 13:17 Ipratropium/Albuterol Sulfate 4 Gm Aer IH Not Given [id number] MEGHAN Atorvastatin Calcium 20 mg 07/26/20 21:00 07/27/20 20:08 Atorvastatin Calcium 20 Mg Tab PO 20 mg HS MEGHAN Administration Enoxaparin Sodium 70 mg 07/26/20 21:00 07/28/20 10:00 Enoxaparin Sodium 80 Mg/0.8 Ml Syringe SC 70 mg 0900,2100 MEGHAN Administration Famotidine 20 mg 07/26/20 09:00 07/28/20 10:01 Famotidine/Pf 20 Mg/2ml Vial SLOW IVP 20 mg Q12HR MEGHAN Administration HCTZ/Losartan Potassium 1 tab 07/28/20 09:00 07/28/20 10:38 Losartan/Hydrochlorothiazide 100 Mg/25 Mg Tablet PO 1 tab DAILY MEGHAN Administration Hydralazine HCl 25 mg 07/28/20 09:00 07/28/20 14:50 Hydralazine 25 Mg Tab PO 25 mg TID MEGHAN Administration Cefepime HCl 2 gm/ Sodium 100 mls @ 200 mls/hr 07/26/20 06:00 07/28/20 14:49 Chloride IVPB 100 mls Q8HR MEGHAN Administration Fentanyl Citrate 2,000 mcg/ 100 mls @ 0 mls/hr 07/28/20 06:15 07/28/20 07:21 Sodium Chloride IV 08/27/20 06:15 100 mls INF MEGHAN Administration Protocol Per Protocol Sodium Chloride 1,000 mls @ 50 mls/hr 07/28/20 09:00 07/28/20 10:41 Normal Saline 0.9% IV 1,000 mls .Q20H MEGHAN Administration Lorazepam 2 mg 07/28/20 06:15 07/28/20 17:41 Lorazepam 2 Mg/Ml Vial SLOW IVP 08/27/20 06:15 2 mg Q1H PRN Administration Breakthrough agitation Methylprednisolone Sodium Succinate 40 mg 07/28/20 12:00 07/28/20 17:42 Methylprednisolone Sod Succ 40 Mg Vial IVP 40 mg Q6HR MEGHAN Administration Mometasone Furoate 100 mcg 07/26/20 18:30 07/28/20 08:16 Mometasone 100 Mcg/Puff (1 Inhaler) INH 1 puff BID-RT MEGHAN Administration Montelukast Sodium 10 mg 07/27/20 09:00 07/28/20 10:02 Montelukast Sodium 10 Mg Tablet PO 10 mg DAILY MEGHAN Administration Propofol 1,000 mg 07/28/20 06:15 07/28/20 17:40 Propofol 1,000 Mg/100 Ml Vial IV 08/27/20 06:15 1,000 mg INF PRN Administration TO ACHIEVE GOAL RASS Protocol Sertraline HCl 100 mg 07/26/20 21:00 07/27/20 20:08 Sertraline Hcl 100 Mg Tab PO 100 mg HS MEGHAN Administration Sodium Chloride 10 ml 07/27/20 09:00 07/28/20 10:03 Flush - Normal Saline 10 Ml Syringe IVF 10 ml Q12HR MEGHAN Administration Sodium Chloride 10 ml 07/27/20 07:15 07/28/20 01:44 Flush - Normal Saline 10 Ml Syringe IVF 10 ml PRN PRN Administration Saline Flush - Exam General Appearance: NAD, awake alert General - other findings: Obese Eye: PERRL, anicteric sclera ENT: normocephalic atraumatic, no oropharyngeal lesions Neck: no JVD Heart: RRR, no murmur, no gallops, no rubs Respiratory - other findings: Diminished breath sounds with some wheezing bilaterally Extremities: no cyanosis, no clubbing, no edema Skin: normal turgor, no lesions, no rashes Neurological: cranial nerve grossly intact, normal sensation to touch, no weakness Musculoskeletal: normal tone, normal strength, no muscle wasting Hosp A/P - Plan Chest X ray : cardiomegaly with pulmonary vascular engorgement, possible worsening pneumonia. No PE CTA chest: worsening extensive ground glass infiltrates Chest X ray 07/28: stable multifocal infiltrates This is a 65 year old female with interstitial lung disease who presented with shortness of breath, found to have COVID Acute hypoxic respiratory failure secondary to COVID pneumonia -Patient was intubated overnight. Chest x-ray shows stable multifocal infiltrates -Continue cefepime and azithromycin. Sputum culture grew saliva. -Continue therapeutic Lovenox. She is status post convalescent plasma on 07/27. She was started on remdesivir today -Hydrocortisone has been discontinued and the patient was switched to methylprednisolone was on 40 mg IV daily Interstitial lung disease - continue singulair, inhalers Hypertension - BP 130-160, consider resuming home meds if persistently elevated Anxiety - started ativan 0.5 mg bid prn which she takes at home
[2020-07-28] MEDS: Azithromycin 500 MG in Sodium Chloride 0.9% 250 ML 250 ML IVPB SCH (20:27)
[2020-07-28] MEDS: Atorvastatin Calcium 20 MG TAB PO SCH (20:33)
[2020-07-29] MEDS: Albuterol Sulfate 2.5 mg/3 ml Neb NEB SCH ×4 (01:45→18:38)
[2020-07-29] MEDS: Ipratropium/Albuterol Sulfate 4 GM AER IH SCH ×4 (02:06→18:41)
[2020-07-29] MEDS: Propofol 1,000 MG/100 ML VIAL IV PRN ×3 (03:07→13:32)
[2020-07-29 04:53] LABS: #Lymphocytes 0.7 thou/uL (1.20-3.40); #Monocytes 0.5 thou/uL (0.11-0.59); #Neutrophils 10.6 thou/uL (1.40-6.50); %Basophils 0.1 % (0.0-1.0); %Eosinophils 0.2 % (0.0-10.0); %Lymphocytes 6.1 % (21.0-51.0); %Monocytes 4.2 % (0.0-10.0); %Neutrophils 89.4 % (42.0-75.0); Hemoglobin 10.9 g/dL (12.0-16.0); Mean Platelet Volume 7.5 fL (7.4-10.4); Platelet Count 257 thou/uL (130-400); RBC Distribution Width 11.6 % (11.5-14.5); Red Blood Cell (RBC) Count 3.51 mill/uL (4.20-5.40); White Blood Cell (WBC) Count 11.9 thou/uL (4.8-10.8)
[2020-07-29 05:14] LABS: Anion Gap 14 mmol/L (10-20); BUN (Urea Nitrogen) 23 mg/dL (9.8-20.1); Calc. Creatinine Clearance 134 mL/min (70-130); Calcium 8.4 mg/dL (7.8-10.44); Carbon Dioxide 22 mmol/L (23-31); Chloride 108 mmol/L (98-107); Estimated GFR-MDRD Greater than 90; Glucose 121 mg/dL (80-115); Potassium 3.1 mmol/L (3.5-5.1); Sodium 141 mmol/L (136-145)
[2020-07-29] MEDS: Cefepime 2 GM in Sodium Chloride 0.9% 100 ML IVPB SCH ×3 (05:20→21:48)
[2020-07-29] MEDS: Sodium Chloride 0.9% 1,000 ML IV SCH ×2 (05:20→13:34)
[2020-07-29] MEDS: methylPREDNISolone Sod Succ 40 MG VIAL IVP SCH ×3 (05:22→17:47)
[2020-07-29] MEDS: Mometasone 100 MCG/PUFF (1 INHALER) INH SCH ×2 (07:06→18:38)
[2020-07-29 07:22] LABS: Actual Bicarbonate (HCO3a) 20.6 mEq/L (22-28); Base Excess (BEa) -4.4 mEq/L (-2.0 to +3.0); CO2 Tension 37.3 mmHg (35.0-45.0); Calcium, Ionized (arterial) 1.18 mmol/L (1.12-1.30); Carboxyhemoglobin (COHb) 0.1 gm% (0.0-3.0); Hemoglobin (Hb) 10.8 g/dL (12.0-16.0); Potassium - ABG Lab 3.19 mmol/L (3.70-5.30); pH, Arterial 7.36 (7.35-7.45)
[2020-07-29 07:28] LABS: O2 Tension (PaO2), arterial 51.5 mmHg (> 80.0); Puncture Site RR
[2020-07-29 07:29] LABS: ALV-art Gradient 469.075 mmHg (0-20)
[2020-07-29] MEDS: Montelukast Sodium 10 mg Tablet PO SCH (07:29)
[2020-07-29] MEDS: hydrALAZINE 25 MG TAB PO SCH ×3 (07:29→20:01)
[2020-07-29] MEDS: Lorazepam 2 MG/ML VIAL SLOW IVP PRN ×2 (07:30→21:48)
[2020-07-29] MEDS ORDERED: Potassium Chloride 20 MEQ TAB PO SCH (07:30)
[2020-07-29] MEDS: Famotidine/PF 20 mg/2ml Vial SLOW IVP SCH ×2 (07:30→20:01)
[2020-07-29] MEDS: Enoxaparin Sodium 80 MG/0.8 ML SYRINGE SC SCH ×2 (07:31→20:03)
[2020-07-29 07:33] LABS: ALT (SGPT) 13 U/L (8-55); AST (SGOT) 25 U/L (5-34); Albumin 3.1 g/dL (3.4-4.8); Alkaline Phosphatase 130 U/L (40-110); Bilirubin, Direct 0.2 mg/dL (0.1-0.3); Bilirubin, Total 0.3 mg/dL (0.2-1.2); Protein, Total 5.9 g/dL (6.0-8.3)
[2020-07-29] MEDS: Losartan/Hydrochlorothiazide 100 mg/25 mg Tablet PO SCH (07:43)
--- NOTE | 2020-07-29 08:00 | RAD ---
Portable frontal chest radiograph: 07/29/2020 COMPARISON: 07/28/2020 HISTORY: Respiratory failure FINDINGS: Stable endotracheal tube, nasogastric tube, and right-sided vascular catheter. There is extensive dense airspace disease throughout both lungs, significantly worsened when compared to the 07/28/2020 exam. Multifocal areas of consolidation noted, most prominent in the perihilar regions and lung bases, left greater than right. IMPRESSION: Extensive airspace disease, worsened when compared to the prior exam. Lines and tubes are unchanged.
--- NOTE | 2020-07-29 09:16 | PRG ---
DATE OF SERVICE: 07/29/2020 SUBJECTIVE: Lorri Hogue remains intubated in the vent. Unfortunately, x-ray today shows worsening diffuse pulmonary infiltrates. OBJECTIVE: VITAL SIGNS: Pulse 59, blood pressure 168/72, sats are 90% on 80%, PEEP of 10, respirations set at 20. She is afebrile. I's and O's are positive. CHEST: Bilateral rhonchi, crackles. CARDIAC: Normal S1 and S2. No gallops. ABDOMEN: Soft. LABORATORY DATA: White count 11,000, H and H 10 and 32, platelet count 257. PO2 is 51, pCO2 of 30, pH 7.36, rate 20, 80%. Lytes are normal. Sodium 151. Liver functions normal. IMPRESSION: Joel positive pneumonia, respiratory failure, acute respiratory distress syndrome, morbid obesity, baseline underlying interstitial lung disease. Pulmonary caceres, unfortunately, not much we can do. She has remdesivir. She has already had convalescent plasma, high-dose steroids, supportive care. Consider at some time. We will follow. One-half hour of critical care time. Job ID: [id number]
--- NOTE | 2020-07-29 10:24 | PRG ---
DATE OF SERVICE: 07/28/2020 SUBJECTIVE: Lorri Hogue is a 65-year-old female, who was intubated yesterday with progressive respiratory failure secondary to coronavirus pneumonia. Unfortunately, she did not tolerate high-flow or BiPAP. OBJECTIVE: VITAL SIGNS: This morning, pulse is 55, blood pressure 160/80, respiratory rate 29, afebrile. I's and O's even. CHEST: No wheezing. No crackles. CARDIAC: Normal S1, S2. No gallops. ABDOMEN: No masses. LABORATORY DATA: PO2 of 79, pCO2 37%. Lytes are normal. Additional lab pending. IMPRESSION: Respiratory failure, ambrosio positive pneumonia, underlying unknown interstitial lung disease, and chronic dysphagia. PLAN: I am going to continue high-dose steroids. Vent being adjusted. She had convalescent plasma . Apparently, she is not a candidate for any remdesivir, though I am going to talk to pharmacy one more time whether they can give her a small amount of remdesivir 2 doses. Prognosis is guarded. She is otherwise on full-dose Lovenox, Pepcid. One-half hour of critical care time. Job ID: [id number]
[2020-07-29] MEDS: REMDESIVIR (EUA) 100 MG in Sodium Chloride 0.9% 250 ML 230 ML IV SCH (10:44)
--- NOTE | 2020-07-29 12:46 | PDOC.EVN ---
Event Note - Event Note Event Note: The patient was noted to desaturate still on ventilator. She was placed on bilevel by tail end rider. The patient had bradycardia per nursing staff with her heart rate dropping to the 40's Her fentanyl and propofol were weaned off which caused the patient to wake up. She got really anxious and was given ativan . General: patient intermittently awake and anxious Lungs: diminished per nursing CV: sinus bradycardia Abdomen: appears distended Ext: appears unchanged Chest X ray : cardiomegaly with pulmonary vascular engorgement, possible worsening pneumonia. No PE CTA chest: worsening extensive ground glass infiltrates Chest X ray 07/28: stable multifocal infiltrates This is a 65 year old female with interstitial lung disease who presented with shortness of breath, found to have COVID Acute hypoxic respiratory failure secondary to COVID pneumonia -Patient was intubated 07/28. Chest x-ray shows stable multifocal infiltrates -Continue cefepime, azithromycin and IV steroids -Continue therapeutic Lovenox. She is status post convalescent plasma on 07/27. She was started on remdesivir day 2 Interstitial lung disease - continue singulair, inhalers Hypertension - BP 130-160, consider resuming home meds if persistently elevated Anxiety - ativan prn Prognosis: guarded
[2020-07-29] MEDS: fentaNYL Citrate/PF 2,000 MCG in Sodium Chloride 0.9% 60 ML IV SCH (14:49)
[2020-07-29] MEDS ORDERED: Furosemide 40 MG/4 ML VIAL IVP SCH (15:30)
[2020-07-29] MEDS ORDERED: Sodium Bicarbonate Tab 325 MG TAB PER TUBE PRN (19:00)
[2020-07-29] MEDS ORDERED: Pancrelipase DR 12,000 1 CAP FS PRN (19:00)
[2020-07-29] MEDS: Atorvastatin Calcium 20 MG TAB PO SCH (20:01)
[2020-07-29] MEDS: Azithromycin 500 MG in Sodium Chloride 0.9% 250 ML 250 ML IVPB SCH (20:09)
[2020-07-30] MEDS: methylPREDNISolone Sod Succ 40 MG VIAL IVP SCH ×5 (00:08→23:07)
[2020-07-30] MEDS: Albuterol Sulfate 2.5 mg/3 ml Neb NEB SCH ×4 (00:27→19:15)
[2020-07-30] MEDS: Ipratropium/Albuterol Sulfate 4 GM AER IH SCH ×4 (00:28→19:15)
[2020-07-30 05:19] LABS: #Lymphocytes 0.7 thou/uL (1.20-3.40); #Monocytes 0.4 thou/uL (0.11-0.59); #Neutrophils 12.4 thou/uL (1.40-6.50); %Basophils 0.1 % (0.0-1.0); %Eosinophils 0.3 % (0.0-10.0); %Lymphocytes 4.8 % (21.0-51.0); %Monocytes 2.6 % (0.0-10.0); %Neutrophils 92.2 % (42.0-75.0); Mean Corpuscular HGB CONC 34.4 g/dL (32.0-36.0); Mean Corpuscular Hemoglobin 31.1 pg (27.0-31.0); Mean Corpuscular Volume 90.3 fL (78.0-98.0); Mean Platelet Volume 7.6 fL (7.4-10.4); Platelet Count 294 thou/uL (130-400); RBC Distribution Width 11.4 % (11.5-14.5); Red Blood Cell (RBC) Count 3.54 mill/uL (4.20-5.40); White Blood Cell (WBC) Count 13.5 thou/uL (4.8-10.8)
[2020-07-30 05:45] LABS: ALT (SGPT) 15 U/L (8-55); AST (SGOT) 23 U/L (5-34); Alkaline Phosphatase 123 U/L (40-110); Anion Gap 11 mmol/L (10-20); BUN (Urea Nitrogen) 26 mg/dL (9.8-20.1); Bilirubin, Direct 0.2 mg/dL (0.1-0.3); Bilirubin, Total 0.3 mg/dL (0.2-1.2); Calc. Creatinine Clearance 124 mL/min (70-130); Calcium 8.3 mg/dL (7.8-10.44); Carbon Dioxide 27 mmol/L (23-31); Chloride 105 mmol/L (98-107); Estimated GFR-MDRD 84; Glucose 164 mg/dL (80-115); Sodium 140 mmol/L (136-145)
[2020-07-30] MEDS: Cefepime 2 GM in Sodium Chloride 0.9% 100 ML IVPB SCH ×2 (06:25→16:56)
[2020-07-30] MEDS: Sodium Chloride 0.9% 1,000 ML IV SCH ×2 (06:25→23:07)
[2020-07-30] MEDS: Propofol 1,000 MG/100 ML VIAL IV PRN ×4 (06:48→22:17)
[2020-07-30] MEDS: Mometasone 100 MCG/PUFF (1 INHALER) INH SCH ×2 (07:15→19:15)
[2020-07-30] MEDS: Enoxaparin Sodium 80 MG/0.8 ML SYRINGE SC SCH ×2 (07:21→19:35)
[2020-07-30] MEDS: Lorazepam 2 MG/ML VIAL SLOW IVP PRN ×4 (07:21→19:54)
[2020-07-30] MEDS: Famotidine/PF 20 mg/2ml Vial SLOW IVP SCH (07:21)
[2020-07-30] MEDS: hydrALAZINE 25 MG TAB PO SCH ×3 (07:21→19:35)
[2020-07-30] MEDS: Losartan/Hydrochlorothiazide 100 mg/25 mg Tablet PO SCH (07:21)
[2020-07-30] MEDS: Montelukast Sodium 10 mg Tablet PO SCH (07:22)
[2020-07-30] MEDS: fentaNYL Citrate/PF 2,000 MCG in Sodium Chloride 0.9% 60 ML IV SCH (07:27)
[2020-07-30 07:36] LABS: Actual Bicarbonate (HCO3a) 26.4 mEq/L (22-28); Base Excess (BEa) 0.6 mEq/L (-2.0 to +3.0); CO2 Tension 47.5 mmHg (35.0-45.0); Calcium, Ionized (arterial) 1.17 mmol/L (1.12-1.30); Carboxyhemoglobin (COHb) 0.6 gm% (0.0-3.0); Hemoglobin (Hb) 12.2 g/dL (12.0-16.0); Potassium - ABG Lab 3.49 mmol/L (3.70-5.30); pH, Arterial 7.36 (7.35-7.45)
[2020-07-30 07:38] LABS: ALV-art Gradient 424.575 mmHg (0-20); O2 Tension (PaO2), arterial 50.8 mmHg (> 80.0); Puncture Site LBA
--- NOTE | 2020-07-30 08:06 | RAD ---
1 VIEW CHEST: Date: 07/30/2020 HISTORY: On ventilator. Follow-up evaluation. COMPARISON: 07/29/2020. FINDINGS: Endotracheal tube, nasogastric tube, and right-sided vascular catheter remain in place. Cardiac silho uette is enlarged. There has been improvement in aeration within the lungs bilaterally; however, inte rstitial opacities persist throughout the lungs bilaterally. Slightly greater increased density is pr esent at the left lung base. IMPRESSION: 1. Improvement in aeration within the lungs bilaterally, but interstitial densities and air space op acities do persist. 2. Lines and tubes stable in position. POS: OFF
[2020-07-30] MEDS: Famotidine 20 MG TAB PER TUBE SCH ×2 (08:28→19:35)
--- NOTE | 2020-07-30 08:33 | PRG ---
DATE OF SERVICE: 07/30/2020 SUBJECTIVE: A 65-year-old morbidly obese female, remains intubated in the vent. I's and O's were negative after she was given a diuretic yesterday. Still remains hypoxic, even though her saturations are 97% on the vent on 70%, PEEP of 10. Her PO2 is only 50. OBJECTIVE: VITAL SIGNS: Temperature 99.4, pulse 59, blood pressure 154/74, respiratory rate 18. CHEST: No wheezing, no crackles. CARDIAC: Normal S1, S2. ABDOMEN: Soft. LABORATORY DATA: White count 13,000, platelet count 94. PCO2 47, PO2 40, pH 7.36. Lytes are normal. C-reactive protein was markedly elevated at 58. IMPRESSION: Respiratory failure, acute respiratory distress syndrome, baseline underlying interstitial lung disease, coronavirus positive pneumonia. She is on full-dose Lovenox several treatment, high-dose steroids, which she is going to continue. She is not weanable. Vent is being adjusted. One-half hour of critical care time. Job ID: [id number]
[2020-07-30] MEDS ORDERED: Potassium Chloride 20 MEQ TAB PO SCH ×2 (08:45)
[2020-07-30] MEDS ORDERED: Electrolyte Replacement Protocol FS PRN (08:45)
[2020-07-30] MEDS: REMDESIVIR (EUA) 100 MG in Sodium Chloride 0.9% 250 ML 230 ML IV SCH (09:31)
[2020-07-30 14:37] LABS: Potassium 3.5 mmol/L (3.5-5.1)
--- NOTE | 2020-07-30 16:17 | PDOC.EVN ---
Event Note - Event Note Event Note: The patient was seen and discussed with nursing. SHe is still intubated. Her PEEP was increased. She is making good urine. She follows commands slightly General: patient intermittently awake and anxious Lungs: diminished per nursing CV: sinus bradycardia Abdomen: appears distended Ext: appears unchanged Chest X ray : cardiomegaly with pulmonary vascular engorgement, possible worsening pneumonia. No PE CTA chest: worsening extensive ground glass infiltrates Chest X ray 07/28: stable multifocal infiltrates Chest X ray 07/29: improvement in aeration but bilateral opacities persist This is a 65 year old female with interstitial lung disease who presented with shortness of breath, found to have COVID Acute hypoxic respiratory failure secondary to COVID pneumonia -Patient was intubated 07/28. Chest x-ray shows stable multifocal infiltrates. SHe received one dose of IV lasix 07/29 . She is s/p convalescent plasma 07/27. She is on remdesivir day 3 -Continue cefepime, azithromycin and IV steroids methylprednisolone 40 mg q 6 hours - WBC has increased, will consider adding vancomycin if chest X ray worsens. Chest X ray today 07/30 has improved Interstitial lung disease - continue singulair, inhalers Hypertension - BP 130-160, consider resuming home meds if persistently elevated Anxiety - ativan prn
[2020-07-30] MEDS: Atorvastatin Calcium 20 MG TAB PO SCH (19:34)
[2020-07-30] MEDS: Azithromycin 500 MG in Sodium Chloride 0.9% 250 ML 250 ML IVPB SCH (19:38)
[2020-07-31] MEDS: Albuterol Sulfate 2.5 mg/3 ml Neb NEB SCH ×4 (00:46→18:36)
[2020-07-31] MEDS: Ipratropium/Albuterol Sulfate 4 GM AER IH SCH ×4 (00:47→18:37)
[2020-07-31] MEDS: Lorazepam 2 MG/ML VIAL SLOW IVP PRN ×2 (02:08→14:30)
[2020-07-31] MEDS: Propofol 1,000 MG/100 ML VIAL IV PRN ×3 (02:10→14:38)
[2020-07-31] MEDS: fentaNYL Citrate/PF 2,000 MCG in Sodium Chloride 0.9% 60 ML IV SCH ×2 (03:31→23:45)
[2020-07-31 04:01] LABS: ALT (SGPT) 15 U/L (8-55); AST (SGOT) 21 U/L (5-34); Albumin 2.9 g/dL (3.4-4.8); Alkaline Phosphatase 104 U/L (40-110); Anion Gap 11 mmol/L (10-20); BUN (Urea Nitrogen) 28 mg/dL (9.8-20.1); Bilirubin, Direct 0.2 mg/dL (0.1-0.3); Bilirubin, Total 0.3 mg/dL (0.2-1.2); Calc. Creatinine Clearance 132 mL/min (70-130); Calcium 8.2 mg/dL (7.8-10.44); Carbon Dioxide 26 mmol/L (23-31); Chloride 103 mmol/L (98-107); Estimated GFR-MDRD 90; Glucose 170 mg/dL (80-115); Potassium 3.4 mmol/L (3.5-5.1); Protein, Total 5.8 g/dL (6.0-8.3); Sodium 137 mmol/L (136-145)
[2020-07-31 04:27] LABS: Band 1 % (5-11); Hemoglobin 11.5 g/dL (12.0-16.0); Hypochromia SLIGHT = 6-15 cells (100X) (0-5/hpf); Lymphocytes 2 % (21-51); MDiff Complete? YES; Mean Corpuscular HGB CONC 35.2 g/dL (32.0-36.0); Mean Corpuscular Hemoglobin 31.9 pg (27.0-31.0); Mean Corpuscular Volume 90.4 fL (78.0-98.0); Mean Platelet Volume 7.9 fL (7.4-10.4); Monocytes 4 % (0-10); Neutrophil 93 % (42-75); Platelet Count 296 thou/uL (130-400); Platelet Morphology Comment Appears Adequate; RBC Distribution Width 11.5 % (11.5-14.5); Red Blood Cell (RBC) Count 3.62 mill/uL (4.20-5.40); White Blood Cell (WBC) Count 14.4 thou/uL (4.8-10.8)
[2020-07-31] MEDS: Cefepime 2 GM in Sodium Chloride 0.9% 100 ML IVPB SCH ×2 (05:13→17:26)
[2020-07-31] MEDS: methylPREDNISolone Sod Succ 40 MG VIAL IVP SCH ×4 (05:13→23:15)
--- NOTE | 2020-07-31 07:47 | RAD ---
XR Chest 1 View Portable History: Ventilated patient Comparison: Radiograph prior day Findings: Endotracheal tube tip above the srinivasa 2.8 cm. The heart size is enlarged. Pulmonary opacit ies are similar. Right IJ central venous catheter tip is in a similar location. Enteric tube tip below diaphragm altho ugh out of field of view. No acute osseous abnormality. Impression: Similar examination of the chest without significant improved lung aeration.
[2020-07-31 07:51] LABS: Actual Bicarbonate (HCO3a) 26.2 mEq/L (22-28); Base Excess (BEa) 1.4 mEq/L (-2.0 to +3.0); CO2 Tension 42.4 mmHg (35.0-45.0); Calcium, Ionized (arterial) 1.18 mmol/L (1.12-1.30); Hemoglobin (Hb) 11.9 g/dL (12.0-16.0); O2 Tension (PaO2), arterial 62.7 mmHg (> 80.0); Potassium - ABG Lab 4.11 mmol/L (3.70-5.30); Puncture Site RRA; pH, Arterial 7.41 (7.35-7.45)
[2020-07-31] MEDS: Enoxaparin Sodium 80 MG/0.8 ML SYRINGE SC SCH ×2 (07:54→20:03)
[2020-07-31] MEDS: hydrALAZINE 25 MG TAB PO SCH ×3 (07:54→20:03)
[2020-07-31] MEDS: Losartan/Hydrochlorothiazide 100 mg/25 mg Tablet PO SCH (07:55)
[2020-07-31] MEDS: Famotidine 20 MG TAB PER TUBE SCH ×2 (07:55→20:03)
[2020-07-31] MEDS: Montelukast Sodium 10 mg Tablet PO SCH (07:55)
[2020-07-31] MEDS: Mometasone 100 MCG/PUFF (1 INHALER) INH SCH ×2 (07:56→18:36)
[2020-07-31] MEDS: REMDESIVIR (EUA) 100 MG in Sodium Chloride 0.9% 250 ML 230 ML IV SCH (10:03)
--- NOTE | 2020-07-31 11:31 | PRG ---
DATE OF SERVICE: 07/31/2020 SUBJECTIVE: This morning, intubated, vent, sedated. OBJECTIVE: VITAL SIGNS: Pulse 62, blood pressure 158/79, . CHEST: No wheezing, no crackles. CARDIAC: Normal S1, S2. ABDOMEN: No masses. LABORATORY DATA: White count 14.4, , platelet count is normal. PO2 is 62, pCO2 is 42, 60% bilevel, PEEP of 14. Lytes are normal. X-ray still showing bilateral infiltrates. Joel positive pneumonia, respiratory failure, morbid obesity, underlying history of lung disease. PLAN: She is not weanable at this stage. We are going to continue antibiotics, steroids, neb treatment. She has received remdesivir and convalescent plasma. One-half hour of critical care time. Job ID: [id number]
--- NOTE | 2020-07-31 16:40 | PDOC.EVN ---
Event Note - Event Note Event Note: The patient's FiO2 has been weaned down to 60%. She remains on bilevel ventilat ion. Her urine output is 60-70/hour. She has not been weaned from sedation today. General: vitals: BP 160 - obese, intubated, sedated Lungs: coarse/diminished per nursing Abdomen: +BS, soft, nontender, nondistended Extremities: mild edema noted Chest X ray : cardiomegaly with pulmonary vascular engorgement, possible worsening pneumonia. No PE CTA chest: worsening extensive ground glass infiltrates Chest X ray 07/28: stable multifocal infiltrates Chest X ray 07/29: improvement in aeration but bilateral opacities persist Chest X ray 07/31: unchanged This is a 65 year old female with interstitial lung disease who presented with shortness of breath, found to have COVID Acute hypoxic respiratory failure secondary to COVID pneumonia -Patient was intubated 07/28. Chest x-ray shows stable multifocal infiltrates. SHe received one dose of IV lasix 07/29 . She is s/p convalescent plasma 07/27. She is on remdesivir day 3 -Continue cefepime, azithromycin and IV steroids methylprednisolone 40 mg q 6 hours . WBC is 14.4 . Chest X ray 07/30 improved but today is unchanged. Will add vancomycin since she has been intubated for three days Interstitial lung disease - continue singulair, inhalers Hypertension - BP 130-160, continue hydralazine and losartan. Will add amlodipine 5 mg daily Anxiety - ativan prn
[2020-07-31] MEDS ORDERED: Labetalol HCl 100 MG/20 ML VIAL SLOW IVP PRN (16:42)
[2020-07-31] MEDS ORDERED: Amlodipine 5 MG TAB PO SCH (16:45)
[2020-07-31] MEDS: Vancomycin 1 GM in Premix Bag 1 BAG IVPB SCH (17:23)
[2020-07-31] MEDS: Atorvastatin Calcium 20 MG TAB PO SCH (20:04)
[2020-07-31] MEDS: Azithromycin 500 MG in Sodium Chloride 0.9% 250 ML 250 ML IVPB SCH (20:04)
[2020-07-31] MEDS: Sodium Chloride 0.9% 1,000 ML IV SCH (22:51)
[2020-08-01] MEDS: Propofol 1,000 MG/100 ML VIAL IV PRN ×4 (00:26→21:06)
[2020-08-01] MEDS: Albuterol Sulfate 2.5 mg/3 ml Neb NEB SCH ×4 (00:58→18:25)
[2020-08-01] MEDS: Ipratropium/Albuterol Sulfate 4 GM AER IH SCH ×4 (00:58→18:26)
[2020-08-01] MEDS: Vancomycin 1 GM in Premix Bag 1 BAG IVPB SCH ×2 (05:37→16:00)
[2020-08-01] MEDS: methylPREDNISolone Sod Succ 40 MG VIAL IVP SCH ×3 (05:38→17:36)
[2020-08-01] MEDS: Cefepime 2 GM in Sodium Chloride 0.9% 100 ML IVPB SCH ×2 (06:34→17:36)
[2020-08-01 07:04] LABS: Band 2 % (5-11); Eosinophils 2 % (0-10); Hemoglobin 11.2 g/dL (12.0-16.0); Lymphocytes 6 % (21-51); MDiff Complete? YES; Mean Corpuscular HGB CONC 34.5 g/dL (32.0-36.0); Mean Corpuscular Volume 90.1 fL (78.0-98.0); Metamyelocyte 1 % (0-0); Monocytes 3 % (0-10); Neutrophil 86 % (42-75); Platelet Count 298 thou/uL (130-400); Platelet Morphology Comment Appears Adequate; RBC Distribution Width 11.6 % (11.5-14.5)
[2020-08-01 07:14] LABS: ALT (SGPT) 14 U/L (8-55); AST (SGOT) 20 U/L (5-34); Albumin 2.7 g/dL (3.4-4.8); Alkaline Phosphatase 84 U/L (40-110); Anion Gap 12 mmol/L (10-20); BUN (Urea Nitrogen) 29 mg/dL (9.8-20.1); Bilirubin, Direct 0.2 mg/dL (0.1-0.3); Bilirubin, Total 0.3 mg/dL (0.2-1.2); Calc. Creatinine Clearance 143 mL/min (70-130); Calcium 7.8 mg/dL (7.8-10.44); Carbon Dioxide 28 mmol/L (23-31); Chloride 100 mmol/L (98-107); Estimated GFR-MDRD Greater than 90; Glucose 149 mg/dL (80-115); Potassium 3.6 mmol/L (3.5-5.1); Protein, Total 5.2 g/dL (6.0-8.3); Sodium 136 mmol/L (136-145)
[2020-08-01] MEDS: Mometasone 100 MCG/PUFF (1 INHALER) INH SCH ×2 (07:15→18:26)
[2020-08-01 07:17] LABS: Actual Bicarbonate (HCO3a) 27.1 mEq/L (22-28); Base Excess (BEa) 2.3 mEq/L (-2.0 to +3.0); CO2 Tension 42.9 mmHg (35.0-45.0); Calcium, Ionized (arterial) 1.15 mmol/L (1.12-1.30); Carboxyhemoglobin (COHb) 0.1 gm% (0.0-3.0); Hemoglobin (Hb) 11.7 g/dL (12.0-16.0); Potassium - ABG Lab 3.72 mmol/L (3.70-5.30); pH, Arterial 7.42 (7.35-7.45)
[2020-08-01 07:51] LABS: O2 Tension (PaO2), arterial 51.5 mmHg (> 80.0)
[2020-08-01 07:52] LABS: Puncture Site RRA
[2020-08-01 07:53] LABS: ALV-art Gradient 322.675 mmHg (0-20)
--- NOTE | 2020-08-01 09:49 | PDOC.HOSPP ---
- Subjective Encounter Date: 08/01/20 Encounter Time: 11:00 Subjective: Patient remains sedated on the vent. No changes overnight. - Objective Vital Signs & Weight: Vital Signs (12 hours) Pulse Resp BP 08/01/20 08:00 20 08/01/20 06:59 74 139/64 08/01/20 06:00 20 08/01/20 04:00 20 08/01/20 02:45 61 136/70 08/01/20 02:00 20 08/01/20 00:00 20 07/31/20 22:26 64 135/74 07/31/20 22:00 20 Weight Admit Weight 214 lb Weight 214 lb Most Recent Monitor Data Heart Rate from ECG 62 NIBP 136/68 NIBP BP-Mean 90 Respiration from ECG 20 SpO2 95 I&O: 07/31/20 08/01/20 08/02/20 06:59 06:59 05:59 Intake Total 2555.5 3424 Output Total 2240 2080 Balance 315.5 1344 Result Diagrams: 08/01/20 05:57 08/01/20 05:57 Hospitalist ROS - Review of Systems ROS unobtainable: due to endotracheal tube - Medication Medications: Active Medications Generic Name Dose Route Start Last Admin Trade Name Freq PRN Reason Stop Dose Admin Acetaminophen 650 mg 07/25/20 23:42 07/26/20 21:14 Acetaminophen 325 Mg Tab PO 650 mg Q4H PRN Administration Headache/Fever/Mild Pain (1-3) Albuterol Sulfate 2.5 mg 07/26/20 13:00 08/01/20 06:59 Albuterol Sulfate 2.5 Mg/3 Ml Neb NEB 2.5 mg [id number] MEGHAN Administration Albuterol/Ipratropium 0 gm 07/27/20 13:00 08/01/20 07:15 Ipratropium/Albuterol Sulfate 4 Gm Aer IH Not Given [id number] MEGHAN Atorvastatin Calcium 20 mg 07/26/20 21:00 07/31/20 20:04 Atorvastatin Calcium 20 Mg Tab PO 20 mg HS MEGHAN Administration Enoxaparin Sodium 70 mg 07/26/20 21:00 07/31/20 20:03 Enoxaparin Sodium 80 Mg/0.8 Ml Syringe SC 70 mg 0900,2100 MEGHAN Administration Famotidine 20 mg 07/30/20 09:00 07/31/20 20:03 Famotidine 20 Mg Tab PER TUBE 20 mg Q12HR MEGHAN Administration HCTZ/Losartan Potassium 1 tab 07/28/20 09:00 07/31/20 07:55 Losartan/Hydrochlorothiazide 100 Mg/25 Mg Tablet PO 1 tab DAILY MEGHAN Administration Hydralazine HCl 25 mg 07/28/20 09:00 07/31/20 20:03 Hydralazine 25 Mg Tab PO 25 mg TID MEGHAN Administration Fentanyl Citrate 2,000 mcg/ 100 mls @ 0 mls/hr 07/28/20 06:15 07/31/20 23:45 Sodium Chloride IV 08/27/20 06:15 100 mls INF MEGHAN Administration Protocol Per Protocol Sodium Chloride 1,000 mls @ 50 mls/hr 07/28/20 09:00 07/31/20 22:51 Normal Saline 0.9% IV Not Given .Q20H MEGHAN Remdesivir 100 mg/ Sodium 250 mls @ 250 mls/hr 07/29/20 10:00 07/31/20 10:03 Chloride IV 08/01/20 10:59 250 mls Q24H MEGHAN Administration Azithromycin 500 mg/ Sodium 250 mls @ 250 mls/hr 07/28/20 21:00 07/31/20 20:04 Chloride IVPB 250 mls 2100 MEGHAN Administration Cefepime HCl 2 gm/ Sodium 100 mls @ 200 mls/hr 07/30/20 18:30 08/01/20 06:34 Chloride IVPB 100 mls Q12HR@0630,1830 MEGHAN Administration Vancomycin HCl 1 gm/ Device 200 mls @ 200 mls/hr 07/31/20 17:00 08/01/20 05:37 IVPB 200 mls 0500,1700 MEGHAN Administration Lorazepam 2 mg 07/28/20 06:15 07/31/20 14:30 Lorazepam 2 Mg/Ml Vial SLOW IVP 08/27/20 06:15 2 mg Q1H PRN Administration Breakthrough agitation Methylprednisolone Sodium Succinate 40 mg 07/28/20 12:00 08/01/20 05:38 Methylprednisolone Sod Succ 40 Mg Vial IVP 40 mg Q6HR MEGHAN Administration Mometasone Furoate 100 mcg 07/26/20 18:30 08/01/20 07:15 Mometasone 100 Mcg/Puff (1 Inhaler) INH 1 puff BID-RT MEGHAN Administration Montelukast Sodium 10 mg 07/27/20 09:00 07/31/20 07:55 Montelukast Sodium 10 Mg Tablet PO 10 mg DAILY MEGHAN Administration Propofol 1,000 mg 07/28/20 06:15 08/01/20 05:39 Propofol 1,000 Mg/100 Ml Vial IV 08/27/20 06:15 1,000 mg INF PRN Administration TO ACHIEVE GOAL RASS Protocol Sertraline HCl 100 mg 07/26/20 21:00 07/31/20 20:04 Sertraline Hcl 100 Mg Tab PO 100 mg HS MEGHAN Administration Sodium Chloride 10 ml 07/27/20 09:00 07/31/20 20:05 Flush - Normal Saline 10 Ml Syringe IVF 10 ml Q12HR MEGHAN Administration Sodium Chloride 10 ml 07/27/20 07:15 07/28/20 01:44 Flush - Normal Saline 10 Ml Syringe IVF 10 ml PRN PRN Administration Saline Flush - Exam General - other findings: sedated on the vent ENT: moist mucosa Heart: RRR, no murmur, no gallops, no rubs Respiratory: CTAB, no wheezes, no rales, no ronchi Gastrointestinal: soft, non-tender, non-distended, normal bowel sounds Psychiatric - other findings: sedated on the vent Hosp A/P - Plan This is a 65 year old female with interstitial lung disease who presented with shortness of breath, found to have COVID Acute hypoxic respiratory failure secondary to COVID pneumonia -Patient was intubated 07/28. Chest x-ray shows stable multifocal infiltrates. SHe received one dose of IV lasix 07/29 . She is s/p convalescent plasma 07/27. She is finishing remdesivir course today. -Continue cefepime, azithromycin, and vancomycin and IV steroids methylprednisolone 40 mg q 6 hours . WBC is 16 . Chest X ray 07/30 improved but next day unchanged. -On full dose Enoxaparin Interstitial lung disease - continue singulair, inhalers Hypertension - BP improved with amlodipine, continue hydralazine and losartan. Anxiety - ativan prn DVT Proph- Full Dose Lovenox GI Proph- Pepcid
[2020-08-01] MEDS: Losartan/Hydrochlorothiazide 100 mg/25 mg Tablet PO SCH (09:52)
[2020-08-01] MEDS: Famotidine 20 MG TAB PER TUBE SCH ×2 (09:53→21:06)
[2020-08-01] MEDS: Montelukast Sodium 10 mg Tablet PO SCH (09:53)
[2020-08-01] MEDS: hydrALAZINE 25 MG TAB PO SCH ×3 (09:53→21:06)
[2020-08-01] MEDS: Amlodipine 5 MG TAB PO SCH (09:53)
[2020-08-01] MEDS: Enoxaparin Sodium 80 MG/0.8 ML SYRINGE SC SCH ×2 (09:54→21:07)
[2020-08-01] MEDS: REMDESIVIR (EUA) 100 MG in Sodium Chloride 0.9% 250 ML 230 ML IV SCH (10:45)
[2020-08-01] MEDS: Lorazepam 2 MG/ML VIAL SLOW IVP PRN ×2 (13:00→19:40)
[2020-08-01] MEDS: Sodium Chloride 0.9% 1,000 ML IV SCH (13:04)
--- NOTE | 2020-08-01 14:46 | PRG ---
DATE OF SERVICE: 08/01/2020 SUBJECTIVE: Ms. Hogue is essentially unchanged. She remains on significant ventilatory support including rate of 20, bilevel 30/14 with FiO2 of 60%, and pulse ox of 93. There has been no other change. PHYSICAL EXAMINATION: VITAL SIGNS: Blood pressure 159/72, heart rate is 86, saturation 93%, respiratory rate is 20. She remains intubated. NECK: There is no JVD or adenopathy. LUNGS: Reveal bilateral coarse rales. HEART: Regular rate and rhythm. ABDOMEN: Soft. There is no organomegaly. There is trace edema. There is no cyanosis or clubbing. LABORATORY DATA: White count 93449, hemoglobin is 11.2 with hematocrit of 32.5, and platelet count 298,000. Blood gas today includes pH 7.42, CO2 of 43, pO2 55, and bicarbonate of 27. Electrolytes include sodium 136, potassium 3.6, chloride 100, CO2 is 28, BUN 29, and creatinine 0.6. Liver tests are negative. Chest x-ray was not obtained today. Yesterday, there was evidence of bilateral consolidations consistent with her COVID pneumonia. IMPRESSION: 1. COVID pneumonia with respiratory failure. 2. Known history of interstitial lung disease. PLAN: She is continued on current therapy including broad-spectrum empiric antibiotics. She has completed remdesivir. She remains on steroids. At this point, there is not much we can do from a weaning perspective, but would defer tracheostomy for at least another week to 10 days. Critical care 31 minutes. Job ID: [id number]
[2020-08-01] MEDS: fentaNYL Citrate/PF 2,000 MCG in Sodium Chloride 0.9% 60 ML IV SCH (17:37)
[2020-08-01] MEDS: Azithromycin 500 MG in Sodium Chloride 0.9% 250 ML 250 ML IVPB SCH (21:06)
[2020-08-01] MEDS: Atorvastatin Calcium 20 MG TAB PO SCH (21:07)
[2020-08-02] MEDS: Lorazepam 2 MG/ML VIAL SLOW IVP PRN ×4 (00:50→19:26)
[2020-08-02] MEDS: methylPREDNISolone Sod Succ 40 MG VIAL IVP SCH ×5 (00:50→23:54)
[2020-08-02] MEDS: Propofol 1,000 MG/100 ML VIAL IV PRN ×4 (01:24→20:19)
[2020-08-02] MEDS: Albuterol Sulfate 2.5 mg/3 ml Neb NEB SCH ×4 (01:25→18:31)
[2020-08-02] MEDS: Ipratropium/Albuterol Sulfate 4 GM AER IH SCH ×4 (01:38→18:30)
[2020-08-02 05:02] LABS: Anion Gap 12 mmol/L (10-20); BUN (Urea Nitrogen) 29 mg/dL (9.8-20.1); Calc. Creatinine Clearance 143 mL/min (70-130); Carbon Dioxide 29 mmol/L (23-31); Chloride 100 mmol/L (98-107); Estimated GFR-MDRD Greater than 90; Glucose 143 mg/dL (80-115); Sodium 137 mmol/L (136-145)
[2020-08-02 05:05] LABS: Band 2 % (5-11); Eosinophils 1 % (0-10); Hemoglobin 11.7 g/dL (12.0-16.0); Lymphocytes 2 % (21-51); MDiff Complete? YES; Mean Corpuscular HGB CONC 34.4 g/dL (32.0-36.0); Mean Corpuscular Hemoglobin 31.2 pg (27.0-31.0); Mean Corpuscular Volume 90.6 fL (78.0-98.0); Mean Platelet Volume 7.8 fL (7.4-10.4); Monocytes 2 % (0-10); Neutrophil 93 % (42-75); Platelet Count 276 thou/uL (130-400); Platelet Morphology Comment Appears Adequate; RBC Distribution Width 11.7 % (11.5-14.5); RBC Morphology Normal; Red Blood Cell (RBC) Count 3.77 mill/uL (4.20-5.40); White Blood Cell (WBC) Count 19.3 thou/uL (4.8-10.8)
[2020-08-02] MEDS: Vancomycin 1 GM in Premix Bag 1 BAG IVPB SCH ×2 (05:10→16:02)
[2020-08-02] MEDS: Cefepime 2 GM in Sodium Chloride 0.9% 100 ML IVPB SCH ×2 (06:16→18:15)
[2020-08-02] MEDS: Mometasone 100 MCG/PUFF (1 INHALER) INH SCH ×2 (07:05→18:38)
[2020-08-02 07:23] LABS: Actual Bicarbonate (HCO3a) 26.5 mEq/L (22-28); Base Excess (BEa) 2.3 mEq/L (-2.0 to +3.0); CO2 Tension 39.7 mmHg (35.0-45.0); Calcium, Ionized (arterial) 1.16 mmol/L (1.12-1.30); Carboxyhemoglobin (COHb) 0.4 gm% (0.0-3.0); Hemoglobin (Hb) 11.8 g/dL (12.0-16.0); Potassium - ABG Lab 4.07 mmol/L (3.70-5.30); pH, Arterial 7.44 (7.35-7.45)
[2020-08-02 07:25] LABS: ALV-art Gradient 322.575 mmHg (0-20); O2 Tension (PaO2), arterial 55.6 mmHg (> 80.0); Puncture Site RRA
[2020-08-02] MEDS: Amlodipine 5 MG TAB PO SCH (08:33)
[2020-08-02] MEDS: Enoxaparin Sodium 80 MG/0.8 ML SYRINGE SC SCH ×2 (08:34→20:16)
[2020-08-02] MEDS: Famotidine 20 MG TAB PER TUBE SCH ×2 (08:34→20:16)
[2020-08-02] MEDS: Losartan/Hydrochlorothiazide 100 mg/25 mg Tablet PO SCH (08:35)
[2020-08-02] MEDS: hydrALAZINE 25 MG TAB PO SCH ×3 (08:35→20:16)
[2020-08-02] MEDS: Montelukast Sodium 10 mg Tablet PO SCH (08:35)
[2020-08-02] MEDS: Sodium Chloride 0.9% 1,000 ML IV SCH (10:59)
--- NOTE | 2020-08-02 11:14 | PRG ---
DATE OF SERVICE: 08/02/2020 SUBJECTIVE: There has not been a significant change in status. She continues to receive substantial ventilatory support including rate of 20, bilevel 30/14 with FiO2 of 0.65. OBJECTIVE: VITAL SIGNS: Blood pressure 125/66, heart rate 71, saturation 95%, respiratory rate is 23. GENERAL: She is sedated and intubated. HEENT: Shows no JVD. LUNGS: Show bilateral coarse rales. HEART: Regular rate and rhythm. She has no murmur. ABDOMEN: Obese. Bowel sounds are normal. EXTREMITIES: She has no cords or tenderness. LABORATORY DATA: White count 19,300, hemoglobin is 11.7 with hematocrit 34.2, and platelet count of 276,000. Blood gas includes pH 7.44, pCO2 of 39.7, pO2 of 55, and bicarbonate 26. This is obtained on ventilator settings as described above. Chemistries include sodium 137, potassium 4.0, chloride 100, CO2 of 29, BUN 29, and creatinine 0.6. She does not have an x-ray today. IMPRESSION: COVID pneumonia, superimposed upon chronic interstitial lung disease. PLAN: We will continue current supportive therapies. Prognosis is very guarded, especially in light of her underlying parenchymal lung disease. Critical care time, 31 minutes. Job ID: [id number]
[2020-08-02] MEDS: fentaNYL Citrate/PF 2,000 MCG in Sodium Chloride 0.9% 60 ML IV SCH (13:10)
--- NOTE | 2020-08-02 19:03 | PDOC.HOSPP ---
- Subjective Encounter Date: 08/02/20 Encounter Time: 18:05 Subjective: f/u for COVID PNA with resp failure on Bi-level with FIO2 65%. No new events per nursing other than desaturation episodes with coughing. - Objective Vital Signs & Weight: Vital Signs (12 hours) Pulse Resp BP Pulse Ox 08/02/20 18:32 78 08/02/20 18:31 74 20 93 L 08/02/20 18:00 20 08/02/20 16:00 20 08/02/20 14:34 84 174/84 H 08/02/20 14:32 69 125/66 08/02/20 14:26 72 20 472 H 08/02/20 14:00 20 08/02/20 12:00 20 08/02/20 10:08 69 125/66 08/02/20 10:00 20 08/02/20 08:35 95 08/02/20 08:33 95 146/68 H 08/02/20 08:00 20 08/02/20 07:46 92 L 08/02/20 07:05 95 130/73 08/02/20 07:04 72 20 92 L Weight Admit Weight 214 lb Weight 214 lb Most Recent Monitor Data Heart Rate from ECG 74 NIBP 111/54 NIBP BP-Mean 73 Respiration from ECG 21 SpO2 92 I&O: 08/01/20 08/02/20 08/03/20 07:59 06:59 06:59 Intake Total 1706 Output Total 1305 Balance 401 Result Diagrams: 08/02/20 04:05 08/02/20 04:05 Additional Labs: Microbiology 07/27/20 20:30 Urine Straight Catheter Urine Culture - Final NO GROWTH AT 48 HOURS 07/27/20 20:30 Stool Stool Lactoferrin - Final 07/27/20 20:30 Stool Shiga Toxin Test - Final 07/27/20 20:30 Stool Stool Culture - Final 07/27/20 20:30 Stool Escherichia coli 0157 Culture - Final Pseudomonas aeruginosa 07/27/20 20:30 Stool C. difficile GDH Antigen & Toxins - Final 07/27/20 11:09 Sputum Respiratory Culture - Final 07/25/20 21:23 Venous blood - Right Arm Blood Culture - Final Presumptive Corynebacterium sp 07/25/20 21:23 Venous blood - Left Arm Blood Culture - Final Coagulase Neg Staphylococcus Presumptive Corynebacterium sp Coagulase Neg Staphylococcus#2 Coagulase Neg Staphylococcus#3 Laboratory Tests 07/29/20 07/30/20 07/31/20 07:10 07:30 03:04 WBC 14.4 H Hgb 11.5 L Neutrophils % (Manual) 93 H ABG pO2 51.5 L* 50.8 L* 07/31/20 08/01/20 08/01/20 07:45 05:57 07:15 WBC 16.0 H Hgb 11.2 L Neutrophils % (Manual) 86 H ABG pO2 62.7 51.5 L* 08/02/20 07:15 WBC Hgb Neutrophils % (Manual) ABG pO2 55.6 L* Radiology Reviewed by me: Yes (PCXR - diffuse bilat infiltrates, lines/tubes in place) EKG Reviewed by me: Yes (Tele - SR) Hospitalist ROS - Medication Medications: Active Medications Generic Name Dose Route Start Last Admin Trade Name Freq PRN Reason Stop Dose Admin Acetaminophen 650 mg 07/25/20 23:42 07/26/20 21:14 Acetaminophen 325 Mg Tab PO 650 mg Q4H PRN Administration Headache/Fever/Mild Pain (1-3) Albuterol Sulfate 2.5 mg 07/26/20 13:00 08/02/20 18:31 Albuterol Sulfate 2.5 Mg/3 Ml Neb NEB 2.5 mg [id number] MEGHAN Administration Albuterol/Ipratropium 0 gm 07/27/20 13:00 08/02/20 18:30 Ipratropium/Albuterol Sulfate 4 Gm Aer IH Not Given [id number] MEGHAN Amlodipine Besylate 5 mg 08/01/20 09:00 08/02/20 08:33 Amlodipine 5 Mg Tab PO 5 mg DAILY MEGHAN Administration Atorvastatin Calcium 20 mg 07/26/20 21:00 08/01/20 21:07 Atorvastatin Calcium 20 Mg Tab PO 20 mg HS MEGHAN Administration Enoxaparin Sodium 70 mg 07/26/20 21:00 08/02/20 08:34 Enoxaparin Sodium 80 Mg/0.8 Ml Syringe SC 70 mg 0900,2100 MEGHAN Administration Famotidine 20 mg 07/30/20 09:00 08/02/20 08:34 Famotidine 20 Mg Tab PER TUBE 20 mg Q12HR MEGHAN Administration HCTZ/Losartan Potassium 1 tab 07/28/20 09:00 08/02/20 08:35 Losartan/Hydrochlorothiazide 100 Mg/25 Mg Tablet PO 1 tab DAILY MEGHAN Administration Hydralazine HCl 25 mg 07/28/20 09:00 08/02/20 14:32 Hydralazine 25 Mg Tab PO 25 mg TID MEGHAN Administration Fentanyl Citrate 2,000 mcg/ 100 mls @ 0 mls/hr 07/28/20 06:15 08/02/20 13:10 Sodium Chloride IV 08/27/20 06:15 100 mls INF MEGHAN Administration Protocol Per Protocol Sodium Chloride 1,000 mls @ 50 mls/hr 07/28/20 09:00 08/02/20 10:59 Normal Saline 0.9% IV 1,000 mls .Q20H MEGHAN Administration Azithromycin 500 mg/ Sodium 250 mls @ 250 mls/hr 07/28/20 21:00 08/01/20 21:06 Chloride IVPB 250 mls 2100 MEGHAN Administration Cefepime HCl 2 gm/ Sodium 100 mls @ 200 mls/hr 07/30/20 18:30 08/02/20 18:15 Chloride IVPB 100 mls Q12HR@0630,1830 MEGHAN Administration Vancomycin HCl 1 gm/ Device 200 mls @ 200 mls/hr 07/31/20 17:00 08/02/20 16:02 IVPB 200 mls 0500,1700 MEGHAN Administration Lorazepam 2 mg 07/28/20 06:15 08/02/20 14:32 Lorazepam 2 Mg/Ml Vial SLOW IVP 08/27/20 06:15 2 mg Q1H PRN Administration Breakthrough agitation Methylprednisolone Sodium Succinate 40 mg 07/28/20 12:00 08/02/20 18:15 Methylprednisolone Sod Succ 40 Mg Vial IVP 40 mg Q6HR MEGHAN Administration Mometasone Furoate 100 mcg 07/26/20 18:30 08/02/20 18:38 Mometasone 100 Mcg/Puff (1 Inhaler) INH 2 puff BID-RT MEGHAN Administration Montelukast Sodium 10 mg 07/27/20 09:00 08/02/20 08:35 Montelukast Sodium 10 Mg Tablet PO 10 mg DAILY MEGHAN Administration Propofol 1,000 mg 07/28/20 06:15 08/02/20 16:01 Propofol 1,000 Mg/100 Ml Vial IV 08/27/20 06:15 1,000 mg INF PRN Administration TO ACHIEVE GOAL RASS Protocol Sertraline HCl 100 mg 07/26/20 21:00 08/01/20 21:06 Sertraline Hcl 100 Mg Tab PO 100 mg HS MEGHAN Administration Sodium Chloride 10 ml 07/27/20 09:00 08/02/20 08:35 Flush - Normal Saline 10 Ml Syringe IVF 10 ml Q12HR MEGHAN Administration Sodium Chloride 10 ml 07/27/20 07:15 07/28/20 01:44 Flush - Normal Saline 10 Ml Syringe IVF 10 ml PRN PRN Administration Saline Flush - Exam General Appearance: ill appearing General - other findings: sedate on mech vent Eye: PERRL, anicteric sclera ENT: normocephalic atraumatic, no oropharyngeal lesions ENT - other findings: ETT in place Neck: supple, symmetric, no JVD, no thyromegaly, no lymphadenopathy Heart: RRR, no murmur, no gallops, no rubs, normal peripheral pulses Heart - other findings: S1, S2 Respiratory - other findings: coarse sounds bilat, diminished in bases bilat Gastrointestinal: soft, non-tender, non-distended, normal bowel sounds, no palpable masses Extremities: no cyanosis, no clubbing, 1+ LE edema Skin: normal turgor, no lesions Neurological - other findings: sedate on mech vent Musculoskeletal: generalized weakness Psychiatric: somnolent, lethargic Hosp A/P (1) Pneumonia due to COVID-19 virus Code(s): U07.1 - COVID-19; J12.89 - OTHER VIRAL PNEUMONIA Status: Acute Plan: s/p convalescent plasma/Remdesivir/Cefepime/Vancomycin/Zithromax/Lovenox/Solumedrol (2) Acute respiratory failure with hypoxia Code(s): J96.01 - ACUTE RESPIRATORY FAILURE WITH HYPOXIA Status: Acute Plan: Continue [facility] ventilation with Bi-level NIMV, prone ventilation trials, see mgmt above (3) ILD (interstitial lung disease) Code(s): J84.9 - INTERSTITIAL PULMONARY DISEASE, UNSPECIFIED Status: Chronic (4) Hypertension Code(s): I10 - ESSENTIAL (PRIMARY) HYPERTENSION Status: Chronic Qualifiers: Hypertension type: essential hypertension Qualified Code(s): I10 - Essential (primary) hypertension Plan: Continue Amlodipine/Losartan/HCTZ - Plan continue antibiotics, pediatric social worker, respiratory therapy, DVT proph w/SCDs Continue critical support Mech ventilation with Bi-level Prone ventilation PRN Consider Precedex Continue Vancomycin/Zithromax/Cefepime Continue Solumedrol Continue Lovenox AM lab: BMP, CBC, ABG PCXR in am
[2020-08-02] MEDS: Atorvastatin Calcium 20 MG TAB PO SCH (20:16)
[2020-08-02] MEDS: Azithromycin 500 MG in Sodium Chloride 0.9% 250 ML 250 ML IVPB SCH (20:18)
[2020-08-03] MEDS: Lorazepam 2 MG/ML VIAL SLOW IVP PRN ×3 (00:58→20:14)
[2020-08-03] MEDS: Albuterol Sulfate 2.5 mg/3 ml Neb NEB SCH ×3 (01:38→18:37)
[2020-08-03] MEDS: Ipratropium/Albuterol Sulfate 4 GM AER IH SCH ×4 (01:39→13:27)
[2020-08-03] MEDS: Propofol 1,000 MG/100 ML VIAL IV PRN ×3 (02:06→09:53)
[2020-08-03 05:32] LABS: Band 7 % (5-11); Eosinophils 1 % (0-10); Hemoglobin 10.7 g/dL (12.0-16.0); Lymphocytes 5 % (21-51); MDiff Complete? YES; Mean Corpuscular HGB CONC 33.8 g/dL (32.0-36.0); Mean Corpuscular Hemoglobin 30.7 pg (27.0-31.0); Mean Corpuscular Volume 90.9 fL (78.0-98.0); Mean Platelet Volume 8.2 fL (7.4-10.4); Metamyelocyte 2 % (0-0); Monocytes 3 % (0-10); Neutrophil 82 % (42-75); Platelet Count 241 thou/uL (130-400); Platelet Morphology Comment Appears Adequate; RBC Distribution Width 11.5 % (11.5-14.5); White Blood Cell (WBC) Count 15.9 thou/uL (4.8-10.8)
[2020-08-03 05:34] LABS: Anion Gap 11 mmol/L (10-20); BUN (Urea Nitrogen) 29 mg/dL (9.8-20.1); Calc. Creatinine Clearance 143 mL/min (70-130); Carbon Dioxide 28 mmol/L (23-31); Chloride 100 mmol/L (98-107); Estimated GFR-MDRD Greater than 90; Glucose 152 mg/dL (80-115); Potassium 4.2 mmol/L (3.5-5.1); Sodium 135 mmol/L (136-145)
[2020-08-03] MEDS: Cefepime 2 GM in Sodium Chloride 0.9% 100 ML IVPB SCH ×2 (05:42→18:25)
[2020-08-03] MEDS: Vancomycin 1 GM in Premix Bag 1 BAG IVPB SCH (05:43)
[2020-08-03] MEDS: methylPREDNISolone Sod Succ 40 MG VIAL IVP SCH ×4 (05:43→23:40)
[2020-08-03] MEDS: Sodium Chloride 0.9% 1,000 ML IV SCH (06:09)
[2020-08-03] MEDS: Mometasone 100 MCG/PUFF (1 INHALER) INH SCH ×2 (07:12→18:36)
[2020-08-03 07:29] LABS: Actual Bicarbonate (HCO3a) 28.7 mEq/L (22-28); Base Excess (BEa) 3.8 mEq/L (-2.0 to +3.0); CO2 Tension 44.7 mmHg (35.0-45.0); Calcium, Ionized (arterial) 1.15 mmol/L (1.12-1.30); Carboxyhemoglobin (COHb) 0.3 gm% (0.0-3.0); Hemoglobin (Hb) 11.1 g/dL (12.0-16.0); Potassium - ABG Lab 4.26 mmol/L (3.70-5.30); pH, Arterial 7.43 (7.35-7.45)
[2020-08-03 07:30] LABS: ALV-art Gradient 353.575 mmHg (0-20); Puncture Site RR
[2020-08-03] MEDS: Famotidine 20 MG TAB PER TUBE SCH ×2 (08:04→20:25)
[2020-08-03] MEDS: hydrALAZINE 25 MG TAB PO SCH ×3 (08:04→20:25)
[2020-08-03] MEDS: Losartan/Hydrochlorothiazide 100 mg/25 mg Tablet PO SCH (08:04)
[2020-08-03] MEDS: Amlodipine 5 MG TAB PO SCH (08:04)
[2020-08-03] MEDS: Enoxaparin Sodium 80 MG/0.8 ML SYRINGE SC SCH ×2 (08:04→20:25)
[2020-08-03] MEDS: Montelukast Sodium 10 mg Tablet PO SCH (08:04)
[2020-08-03] MEDS: fentaNYL Citrate/PF 2,000 MCG in Sodium Chloride 0.9% 60 ML IV SCH (09:41)
--- NOTE | 2020-08-03 10:00 | PRG ---
DATE OF SERVICE: 08/03/2020 SUBJECTIVE: remains intubated in the vent, sedated. She is still coughing. OBJECTIVE: VITAL SIGNS: Pulse 103, blood pressure 130/80, sats are 92%, respirations 36, still tachypneic and tachycardic. I's and O's have been consistently positive. BNP was negative. She was given diuretic without much urine output. CHEST: No wheezing. No crackles. CARDIAC: Normal S1 and S2. No gallops. ABDOMEN: No masses. LABORATORY DATA: White count 15,000, hemoglobin and hematocrit are 10 and 31, platelet count is normal, 82 segs, 7 bands. PO2 of 54, pCO2 of 44, pH 7.43, on a bilevel. Low PEEP 14, high PEEP 32. ASSESSMENT: Respiratory failure, ambrosio positive pneumonia, underlying interstitial lung disease, morbid obesity. PLAN: Pulmonary caceres, the patient is clearly not weanable I am going to start some inhaled steroids on her. Overall, prognosis is guarded. We will continue broad-spectrum antibiotics. I see no reason to do any vancomycin. One-half hour of critical care time. Job ID: [id number]
[2020-08-03] MEDS: Mometasone 200 MCG/Formoterol 5 MCG 120 PUFF INHALER INH SCH (18:36)
[2020-08-03] MEDS: Atorvastatin Calcium 20 MG TAB PO SCH (20:25)
[2020-08-04] MEDS: Albuterol Sulfate 2.5 mg/3 ml Neb NEB SCH ×4 (00:16→18:48)
[2020-08-04] MEDS: Sodium Chloride 0.9% 1,000 ML IV SCH ×2 (03:58→19:26)
[2020-08-04] MEDS: Propofol 1,000 MG/100 ML VIAL IV PRN ×4 (03:58→19:25)
[2020-08-04] MEDS: Lorazepam 2 MG/ML VIAL SLOW IVP PRN ×5 (04:35→21:50)
[2020-08-04 04:41] LABS: Band 1 % (5-11); Hemoglobin 11.5 g/dL (12.0-16.0); Lymphocytes 6 % (21-51); MDiff Complete? YES; Mean Corpuscular Hemoglobin 30.8 pg (27.0-31.0); Mean Corpuscular Volume 90.6 fL (78.0-98.0); Mean Platelet Volume 7.9 fL (7.4-10.4); Monocytes 3 % (0-10); Neutrophil 89 % (42-75); Platelet Count 236 thou/uL (130-400); Platelet Morphology Comment Appears Adequate; RBC Distribution Width 11.7 % (11.5-14.5); RBC Morphology Normal; Reactive Lymphocytes 1 % (0-10); Red Blood Cell (RBC) Count 3.73 mill/uL (4.20-5.40); White Blood Cell (WBC) Count 14.7 thou/uL (4.8-10.8)
[2020-08-04 04:44] LABS: Anion Gap 12 mmol/L (10-20); BUN (Urea Nitrogen) 31 mg/dL (9.8-20.1); Calc. Creatinine Clearance 145 mL/min (70-130); Calcium 8.2 mg/dL (7.8-10.44); Carbon Dioxide 30 mmol/L (23-31); Chloride 99 mmol/L (98-107); Estimated GFR-MDRD Greater than 90; Glucose 171 mg/dL (80-115); Potassium 4.6 mmol/L (3.5-5.1); Sodium 136 mmol/L (136-145)
[2020-08-04] MEDS: Cefepime 2 GM in Sodium Chloride 0.9% 100 ML IVPB SCH ×2 (05:35→17:29)
[2020-08-04] MEDS: methylPREDNISolone Sod Succ 40 MG VIAL IVP SCH ×4 (05:35→23:32)
[2020-08-04] MEDS: Mometasone 200 MCG/Formoterol 5 MCG 120 PUFF INHALER INH SCH ×2 (07:35→18:48)
[2020-08-04] MEDS: Mometasone 100 MCG/PUFF (1 INHALER) INH SCH ×2 (07:39→22:01)
[2020-08-04] MEDS: Famotidine 20 MG TAB PER TUBE SCH ×2 (07:42→19:23)
[2020-08-04] MEDS: Amlodipine 5 MG TAB PO SCH (07:42)
[2020-08-04] MEDS: Enoxaparin Sodium 80 MG/0.8 ML SYRINGE SC SCH ×2 (07:42→19:25)
[2020-08-04] MEDS: hydrALAZINE 25 MG TAB PO SCH ×3 (07:43→19:24)
[2020-08-04] MEDS: Montelukast Sodium 10 mg Tablet PO SCH (07:43)
[2020-08-04] MEDS: Losartan/Hydrochlorothiazide 100 mg/25 mg Tablet PO SCH (07:43)
[2020-08-04 07:52] LABS: Actual Bicarbonate (HCO3a) 29.4 mEq/L (22-28); Base Excess (BEa) 4.8 mEq/L (-2.0 to +3.0); CO2 Tension 43.9 mmHg (35.0-45.0); Calcium, Ionized (arterial) 1.18 mmol/L (1.12-1.30); Carboxyhemoglobin (COHb) 0.5 gm% (0.0-3.0); Hemoglobin (Hb) 11.4 g/dL (12.0-16.0); Potassium - ABG Lab 4.45 mmol/L (3.70-5.30); pH, Arterial 7.44 (7.35-7.45)
[2020-08-04 07:55] LABS: ALV-art Gradient 390.225 mmHg (0-20); Puncture Site RR
[2020-08-04] MEDS: fentaNYL Citrate/PF 2,000 MCG in Sodium Chloride 0.9% 60 ML IV SCH (08:41)
--- NOTE | 2020-08-04 09:59 | PRG ---
DATE OF SERVICE: 08/04/2020 SUBJECTIVE: Lorri Hogue is a morbidly obese female, remains in ICU on the vent, intubated, day #9, joel positive pneumonia. Her pO2 remains low at 54, pCO2 . She is on 70% bilevel, low PEEP of 14. OBJECTIVE: VITAL SIGNS: Blood pressure is 140/80, pulse 80, respirations 16. CHEST: No wheezing, no crackles. CARDIAC: Normal S1 and S2. No gallops. ABDOMEN: No masses. EXTREMITIES: Trace edema. IMAGING STUDIES: Chest x-ray shows persistent bilateral infiltrates. LABORATORY DATA: White count 14,000, H and H 11 and 33, platelet count 236. Lytes are normal. IMPRESSION: Joel positive pneumonia, acute respiratory distress syndrome, morbid obesity, baseline underlying lung disease. PLAN: She is unfortunately not weanable. I have increased the low PEEP to 15. We will continue nutrition and PT, all supportive care. One-half hour of critical care time. Job ID: [id number]
--- NOTE | 2020-08-04 10:23 | RAD ---
PORTABLE CHEST: Date: 08/04/2020 HISTORY: Respiratory distress. COMPARISON: 07/31/2020 exam. FINDINGS: Endotracheal and NG tubes are in satisfactory position. Right-sided central line unchanged. Bilateral interstitial alveolar lung changes are essentially unchanged. IMPRESSION: Stable exam. POS: CONG
[2020-08-04] MEDS: Atorvastatin Calcium 20 MG TAB PO SCH (19:24)
[2020-08-05] MEDS: Albuterol Sulfate 2.5 mg/3 ml Neb NEB SCH ×5 (00:34→23:37)
[2020-08-05] MEDS: Lorazepam 2 MG/ML VIAL SLOW IVP PRN ×4 (02:37→14:27)
[2020-08-05] MEDS: Propofol 1,000 MG/100 ML VIAL IV PRN ×6 (02:37→23:27)
[2020-08-05] MEDS: fentaNYL Citrate/PF 2,000 MCG in Sodium Chloride 0.9% 60 ML IV SCH ×2 (03:36→20:20)
[2020-08-05 05:04] LABS: MDiff Complete? YES; Mean Corpuscular HGB CONC 34.6 g/dL (32.0-36.0); Mean Corpuscular Hemoglobin 31.4 pg (27.0-31.0); Mean Corpuscular Volume 90.8 fL (78.0-98.0); Mean Platelet Volume 8.5 fL (7.4-10.4); Platelet Count 213 thou/uL (130-400); RBC Distribution Width 11.9 % (11.5-14.5); Red Blood Cell (RBC) Count 3.82 mill/uL (4.20-5.40); White Blood Cell (WBC) Count 18.4 thou/uL (4.8-10.8)
[2020-08-05 05:05] LABS: Band 4 % (5-11); Lymphocytes 5 % (21-51); Metamyelocyte 1 % (0-0); Monocytes 5 % (0-10); Neutrophil 85 % (42-75); Platelet Morphology Comment Appears Adequate
[2020-08-05 05:15] LABS: Anion Gap 13 mmol/L (10-20); BUN (Urea Nitrogen) 33 mg/dL (9.8-20.1); Calc. Creatinine Clearance 150 mL/min (70-130); Calcium 8.2 mg/dL (7.8-10.44); Carbon Dioxide 29 mmol/L (23-31); Chloride 97 mmol/L (98-107); Estimated GFR-MDRD Greater than 90; Glucose 145 mg/dL (80-115); Potassium 4.3 mmol/L (3.5-5.1); Sodium 135 mmol/L (136-145)
[2020-08-05] MEDS: methylPREDNISolone Sod Succ 40 MG VIAL IVP SCH ×4 (05:58→23:26)
[2020-08-05] MEDS: Cefepime 2 GM in Sodium Chloride 0.9% 100 ML IVPB SCH ×2 (06:00→16:47)
[2020-08-05] MEDS: Enoxaparin Sodium 80 MG/0.8 ML SYRINGE SC SCH ×2 (07:29→19:49)
[2020-08-05] MEDS: Montelukast Sodium 10 mg Tablet PO SCH (07:30)
[2020-08-05] MEDS: Amlodipine 5 MG TAB PO SCH (07:30)
[2020-08-05] MEDS: Losartan/Hydrochlorothiazide 100 mg/25 mg Tablet PO SCH (07:30)
[2020-08-05] MEDS: Famotidine 20 MG TAB PER TUBE SCH ×2 (07:30→19:49)
[2020-08-05] MEDS: hydrALAZINE 25 MG TAB PO SCH ×3 (07:30→19:52)
[2020-08-05 07:41] LABS: Actual Bicarbonate (HCO3a) 28.6 mEq/L (22-28); Base Excess (BEa) 3.5 mEq/L (-2.0 to +3.0); CO2 Tension 45.4 mmHg (35.0-45.0); Calcium, Ionized (arterial) 1.15 mmol/L (1.12-1.30); Carboxyhemoglobin (COHb) 0.4 gm% (0.0-3.0); Hemoglobin (Hb) 12.3 g/dL (12.0-16.0); O2 Tension (PaO2), arterial 63.1 mmHg (> 80.0); Potassium - ABG Lab 4.46 mmol/L (3.70-5.30); pH, Arterial 7.42 (7.35-7.45)
--- NOTE | 2020-08-05 07:51 | RAD ---
Chest AP view INDICATION: Intubation COMPARISON: August 04, 2020 FINDINGS: Lungs: Bilateral airspace disease persists. ET tube is unchanged Cardiac silhouette: Cardiomegaly and pulmonary vascular congestion persists Pulmonary vasculature: Pulmonary vascular congestion persists Pleural spaces: Small bilateral pleural effusions are stable Upper abdomen: No abnormality seen. Osseous structures: No acute osseous abnormality. Additional findings: Right IJ central venous catheter and gastric catheter unchanged. IMPRESSION: Stable exam
[2020-08-05] MEDS: Mometasone 200 MCG/Formoterol 5 MCG 120 PUFF INHALER INH SCH ×2 (08:20→19:05)
--- NOTE | 2020-08-05 10:53 | PRG ---
DATE OF SERVICE: 08/05/2020 SUBJECTIVE: Lorri Hogue still remains intubated in the vent, sedated on multiple medications. OBJECTIVE: VITAL SIGNS: Pulse 99, blood pressure 130/72, sats are 98%, 100% and PEEP of 14, temperature 98. CHEST: Decreased breath sounds. No wheezing. CARDIAC: Normal S1, S2. No gallops. ABDOMEN: No masses. LABORATORY DATA: White count 18,000, H and H of 12 and 34, platelet count is normal. Lytes are normal. X-ray still shows diffuse bilateral haziness. All cultures have been negative. IMPRESSION: Joel positive pneumonia, morbid obesity, respiratory failure, underlying interstitial lung disease. She is not weanable. , who is a nurse, is going to come and visit the patient today. continue steroids, supportive care, empiric antibiotics. She has already received plasma and remdesivir. TIME SPENT: One-half hour of critical care time. Job ID: [id number]
[2020-08-05] MEDS: Mometasone 100 MCG/PUFF (1 INHALER) INH SCH (14:14)
[2020-08-05] MEDS: Sodium Chloride 0.9% 1,000 ML IV SCH (16:47)
[2020-08-05] MEDS: Atorvastatin Calcium 20 MG TAB PO SCH (19:50)
[2020-08-06] MEDS: Propofol 1,000 MG/100 ML VIAL IV PRN ×6 (02:50→23:43)
[2020-08-06 04:55] LABS: Band 23 % (5-11); Hemoglobin 11.5 g/dL (12.0-16.0); Hypochromia SLIGHT = 6-15 cells (100X) (0-5/hpf); Lymphocytes 2 % (21-51); MDiff Complete? YES; Mean Corpuscular HGB CONC 34.7 g/dL (32.0-36.0); Mean Corpuscular Hemoglobin 31.5 pg (27.0-31.0); Mean Corpuscular Volume 90.8 fL (78.0-98.0); Mean Platelet Volume 8.4 fL (7.4-10.4); Monocytes 1 % (0-10); Neutrophil 74 % (42-75); Platelet Count 196 thou/uL (130-400); Platelet Morphology Comment Appears Adequate; RBC Distribution Width 11.7 % (11.5-14.5); Red Blood Cell (RBC) Count 3.65 mill/uL (4.20-5.40)
[2020-08-06] MEDS: methylPREDNISolone Sod Succ 40 MG VIAL IVP SCH ×4 (05:26→23:43)
[2020-08-06] MEDS: Cefepime 2 GM in Sodium Chloride 0.9% 100 ML IVPB SCH ×2 (05:28→17:15)
[2020-08-06 06:53] LABS: Anion Gap 10 mmol/L (10-20); BUN (Urea Nitrogen) 30 mg/dL (9.8-20.1); Calc. Creatinine Clearance 143 mL/min (70-130); Calcium 7.9 mg/dL (7.8-10.44); Carbon Dioxide 31 mmol/L (23-31); Chloride 98 mmol/L (98-107); Estimated GFR-MDRD Greater than 90; Glucose 127 mg/dL (80-115); Potassium 4.6 mmol/L (3.5-5.1); Sodium 134 mmol/L (136-145)
[2020-08-06] MEDS: Albuterol Sulfate 2.5 mg/3 ml Neb NEB SCH ×3 (07:00→19:13)
[2020-08-06] MEDS: Mometasone 200 MCG/Formoterol 5 MCG 120 PUFF INHALER INH SCH ×2 (07:00→19:13)
[2020-08-06 07:20] LABS: Actual Bicarbonate (HCO3a) 27.9 mEq/L (22-28); Base Excess (BEa) 2.7 mEq/L (-2.0 to +3.0); CO2 Tension 45.3 mmHg (35.0-45.0); Calcium, Ionized (arterial) 1.16 mmol/L (1.12-1.30); Carboxyhemoglobin (COHb) 0.2 gm% (0.0-3.0); Hemoglobin (Hb) 11.6 g/dL (12.0-16.0); Potassium - ABG Lab 4.36 mmol/L (3.70-5.30); pH, Arterial 7.41 (7.35-7.45)
[2020-08-06 07:23] LABS: O2 Tension (PaO2), arterial 51.2 mmHg (> 80.0)
[2020-08-06 07:25] LABS: ALV-art Gradient 605.175 mmHg (0-20)
[2020-08-06] MEDS: Amlodipine 5 MG TAB PO SCH (08:11)
[2020-08-06] MEDS: Famotidine 20 MG TAB PER TUBE SCH ×2 (08:11→20:11)
[2020-08-06] MEDS: hydrALAZINE 25 MG TAB PO SCH ×3 (08:12→20:11)
[2020-08-06] MEDS: Montelukast Sodium 10 mg Tablet PO SCH (08:13)
[2020-08-06] MEDS: Enoxaparin Sodium 80 MG/0.8 ML SYRINGE SC SCH ×2 (08:13→20:11)
[2020-08-06] MEDS ORDERED: Furosemide 40 MG/4 ML VIAL IVP SCH (08:30)
[2020-08-06] MEDS: Losartan/Hydrochlorothiazide 100 mg/25 mg Tablet PO SCH (08:41)
--- NOTE | 2020-08-06 08:49 | RAD ---
PORTABLE CHEST: Date: 08/06/2020 HISTORY: CCU follow-up with ventilator follow-up. COMPARISON: 08/05/2020. FINDINGS: ET tube, NG tube, and central line unchanged. Cardiomegaly. There is evidence of vascular congestion. Hazy bilateral interstitial and alveolar infiltrates are stable. This could represent edema and/or i nfectious process. Small bilateral effusions. IMPRESSION: No significant interval change in the appearance of the chest. POS: AGW
[2020-08-06] MEDS: Lorazepam 2 MG/ML VIAL SLOW IVP PRN ×4 (08:55→19:11)
[2020-08-06] MEDS: fentaNYL Citrate/PF 2,000 MCG in Sodium Chloride 0.9% 60 ML IV SCH (09:13)
--- NOTE | 2020-08-06 10:10 | PRG ---
DATE OF SERVICE: 08/06/2020 SUBJECTIVE: This morning, she remains in the ICU, intubated, vented, sedated on multiple medications, maximum temperature is 98. She is apparently 3 weeks out. OBJECTIVE: VITAL SIGNS: Pulse 70, blood pressure 112/67, sats are barely 90% on 100%, PEEP of 15. I's and O's are consistently negative. CHEST: Decreased breath sounds. No wheezing. CARDIAC: Normal S1, S2. No masses. LABORATORY DATA: Her pO2 is only 51, pCO2 of 45, pH 7.41, low PEEP of 15, 100%. Otherwise, white count 14,000, H and H stable, platelet count is normal. Lytes are normal. IMPRESSION: 1. Morbid obesity. 2. Joel-positive pneumonia. 3. Acute respiratory distress syndrome. 4. Underlying interstitial lung disease. PLAN: Lasix has been initiated. Unfortunately, she is not a candidate for a prone position at this stage. She is on high-dose steroids. She has received remdesivir, convalescent plasma, and remains on steroids. Prognosis remains grave. I had a lengthy discussion with the patient's who is a nurse in the hospital. He wants everything to be done at this stage and full code. One-half hour of critical time. Job ID: [id number]
[2020-08-06] MEDS: Sodium Chloride 0.9% 1,000 ML IV SCH (14:40)
[2020-08-06 16:55] LABS: SARS-CoV-2 MS2 Positive; SARS-CoV-2 N Gene Positive; SARS-CoV-2 S Gene Positive; SARS-CoV-2 by NAA DETECTED (NotDetected); SARS-CoV-2 orf1ab Positive
--- NOTE | 2020-08-06 17:55 | PDOC.HOSPP ---
- Subjective Encounter Date: 08/06/20 Encounter Time: 17:20 Subjective: f/u for COVID PNA/Resp failure on mech ventilation s/p convalescent plasma/Remdesivir currently receiving Cefepime/Lovenox/Solumedrol. - Objective Vital Signs & Weight: Vital Signs (12 hours) Pulse Resp BP Pulse Ox 08/06/20 16:44 85 112/64 08/06/20 16:00 35 H 08/06/20 14:39 76 113/61 08/06/20 14:00 32 H 08/06/20 13:30 68 36 H 109/60 94 L 08/06/20 12:00 33 H 08/06/20 10:40 62 117/67 08/06/20 10:00 36 H 08/06/20 08:12 70 121/67 08/06/20 08:11 70 121/67 08/06/20 08:00 33 H 93 L 08/06/20 07:00 62 23 H 94 L 08/06/20 06:59 62 115/62 08/06/20 06:00 29 H Weight Admit Weight 214 lb Weight 214 lb Most Recent Monitor Data Heart Rate from ECG 77 NIBP 91/53 NIBP BP-Mean 65 Respiration from ECG 28 SpO2 91 I&O: 08/05/20 08/06/20 08/07/20 06:59 06:59 06:59 Intake Total 2980 2890 120 Output Total 2070 2230 1175 Balance 910 660 -1055 Result Diagrams: 08/06/20 04:16 08/06/20 06:00 Additional Labs: Microbiology 07/27/20 20:30 Urine Straight Catheter Urine Culture - Final NO GROWTH AT 48 HOURS 07/27/20 20:30 Stool Stool Lactoferrin - Final 07/27/20 20:30 Stool Shiga Toxin Test - Final 07/27/20 20:30 Stool Stool Culture - Final 07/27/20 20:30 Stool Escherichia coli 0157 Culture - Final Pseudomonas aeruginosa 07/27/20 20:30 Stool C. difficile GDH Antigen & Toxins - Final 07/27/20 11:09 Sputum Respiratory Culture - Final 07/25/20 21:23 Venous blood - Right Arm Blood Culture - Final Presumptive Corynebacterium sp 07/25/20 21:23 Venous blood - Left Arm Blood Culture - Final Coagulase Neg Staphylococcus Presumptive Corynebacterium sp Coagulase Neg Staphylococcus#2 Coagulase Neg Staphylococcus#3 Laboratory Tests 07/29/20 07/30/20 07/31/20 07:10 07:30 03:04 WBC 14.4 H Hgb 11.5 L Neutrophils % (Manual) 93 H ABG pO2 51.5 L* 50.8 L* 07/31/20 08/01/20 08/01/20 07:45 05:57 07:15 WBC 16.0 H Hgb 11.2 L Neutrophils % (Manual) 86 H ABG pO2 62.7 51.5 L* 08/02/20 07:15 WBC Hgb Neutrophils % (Manual) ABG pO2 55.6 L* Radiology Reviewed by me: Yes (PCXR - bilat infiltrates, vasc prominence) EKG Reviewed by me: Yes (Tele - SR) Hospitalist ROS - Medication Medications: Active Medications Generic Name Dose Route Start Last Admin Trade Name Freq PRN Reason Stop Dose Admin Acetaminophen 650 mg 07/25/20 23:42 07/26/20 21:14 Acetaminophen 325 Mg Tab PO 650 mg Q4H PRN Administration Headache/Fever/Mild Pain (1-3) Albuterol Sulfate 2.5 mg 08/03/20 19:00 08/06/20 13:30 Albuterol Sulfate 2.5 Mg/3 Ml Neb NEB 2.5 mg [id number] MEGHAN Administration Amlodipine Besylate 5 mg 08/01/20 09:00 08/06/20 08:11 Amlodipine 5 Mg Tab PO 5 mg DAILY MEGHAN Administration Atorvastatin Calcium 20 mg 07/26/20 21:00 08/05/20 19:50 Atorvastatin Calcium 20 Mg Tab PO 20 mg HS MEGHAN Administration Enoxaparin Sodium 70 mg 07/26/20 21:00 08/06/20 08:13 Enoxaparin Sodium 80 Mg/0.8 Ml Syringe SC 70 mg 0900,2100 MEGHAN Administration Famotidine 20 mg 07/30/20 09:00 08/06/20 08:11 Famotidine 20 Mg Tab PER TUBE 20 mg Q12HR MEGHAN Administration HCTZ/Losartan Potassium 1 tab 07/28/20 09:00 08/06/20 08:41 Losartan/Hydrochlorothiazide 100 Mg/25 Mg Tablet PO 1 tab DAILY MEGHAN Administration Hydralazine HCl 25 mg 07/28/20 09:00 08/06/20 14:39 Hydralazine 25 Mg Tab PO 25 mg TID MEGHAN Administration Fentanyl Citrate 2,000 mcg/ 100 mls @ 0 mls/hr 07/28/20 06:15 08/06/20 09:13 Sodium Chloride IV 08/27/20 06:15 100 mls INF MEGHAN Administration Protocol Per Protocol Sodium Chloride 1,000 mls @ 50 mls/hr 07/28/20 09:00 08/06/20 14:40 Normal Saline 0.9% IV Not Given .Q20H MEGHAN Cefepime HCl 2 gm/ Sodium 100 mls @ 200 mls/hr 07/30/20 18:30 08/06/20 17:15 Chloride IVPB 100 mls Q12HR@0630,1830 MEGHAN Administration Dexmedetomidine HCl 400 mcg/ 100 mls @ 0 mls/hr 08/03/20 10:00 08/06/20 15:46 Sodium Chloride IVPB 100 mls INF MEGHAN Administration Protocol Titrate Lorazepam 2 mg 07/28/20 06:15 08/06/20 16:52 Lorazepam 2 Mg/Ml Vial SLOW IVP 08/27/20 06:15 2 mg Q1H PRN Administration Breakthrough agitation Methylprednisolone Sodium Succinate 40 mg 07/28/20 12:00 08/06/20 17:16 Methylprednisolone Sod Succ 40 Mg Vial IVP 40 mg Q6HR MEGHAN Administration Mometasone Furoate/Formoterol Fumar 2 puff 08/03/20 18:30 08/06/20 07:00 Mometasone 200 Mcg/Formoterol 5 Mcg 120 Puff Inhaler INH 2 puff BID-RT MEGHAN Administration Montelukast Sodium 10 mg 07/27/20 09:00 08/06/20 08:13 Montelukast Sodium 10 Mg Tablet PO 10 mg DAILY MEGHAN Administration Propofol 1,000 mg 07/28/20 06:15 08/06/20 15:49 Propofol 1,000 Mg/100 Ml Vial IV 08/27/20 06:15 1,000 mg INF PRN Administration TO ACHIEVE GOAL RASS Protocol Sertraline HCl 100 mg 07/26/20 21:00 08/05/20 19:49 Sertraline Hcl 100 Mg Tab PO 100 mg HS MEGHAN Administration Sodium Chloride 10 ml 07/27/20 09:00 08/06/20 08:11 Flush - Normal Saline 10 Ml Syringe IVF 10 ml Q12HR MEGHAN Administration Sodium Chloride 10 ml 07/27/20 07:15 07/28/20 01:44 Flush - Normal Saline 10 Ml Syringe IVF 10 ml PRN PRN Administration Saline Flush - Exam General Appearance: ill appearing General - other findings: sedate on mech vent Eye: PERRL ENT: normocephalic atraumatic, no oropharyngeal lesions Neck: supple, symmetric, no JVD, no thyromegaly, no lymphadenopathy Heart: RRR, no gallops, no rubs, normal peripheral pulses Heart - other findings: S1, S2 Respiratory - other findings: diminished in bases bilat, scattered rhonchi Gastrointestinal: soft, non-tender, non-distended, normal bowel sounds, no palpable masses Gastrointestinal - other findings: obese Extremities: no cyanosis, no clubbing, 1+ LE edema Skin: normal turgor Musculoskeletal: generalized weakness Psychiatric: somnolent, lethargic Psychiatric - other findings: sedate on mech vent Hosp A/P (1) Pneumonia due to COVID-19 virus Code(s): U07.1 - COVID-19; J12.89 - OTHER VIRAL PNEUMONIA Status: Acute Plan: Continue mech ventilation with Bi-Level, continue Cefepime/Solumedrol/Lovenox (2) Acute respiratory failure with hypoxia Code(s): J96.01 - ACUTE RESPIRATORY FAILURE WITH HYPOXIA Status: Acute (3) ILD (interstitial lung disease) Code(s): J84.9 - INTERSTITIAL PULMONARY DISEASE, UNSPECIFIED Status: Chronic (4) Hypertension Code(s): I10 - ESSENTIAL (PRIMARY) HYPERTENSION Status: Chronic Qualifiers: Hypertension type: essential hypertension Qualified Code(s): I10 - Essential (primary) hypertension - Plan continue antibiotics, 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
[2020-08-06] MEDS: Atorvastatin Calcium 20 MG TAB PO SCH (20:10)
[2020-08-07] MEDS: Albuterol Sulfate 2.5 mg/3 ml Neb NEB SCH ×5 (00:14→18:52)
[2020-08-07] MEDS: Propofol 1,000 MG/100 ML VIAL IV PRN ×6 (03:18→20:06)
[2020-08-07 04:24] LABS: #Lymphocytes 0.2 thou/uL (1.20-3.40); #Monocytes 0.2 thou/uL (0.11-0.59); #Neutrophils 8.1 thou/uL (1.40-6.50); %Basophils 0.4 % (0.0-1.0); %Eosinophils 0.3 % (0.0-10.0); %Lymphocytes 2.1 % (21.0-51.0); %Monocytes 2.6 % (0.0-10.0); %Neutrophils 94.7 % (42.0-75.0); Mean Corpuscular HGB CONC 35.4 g/dL (32.0-36.0); Mean Corpuscular Hemoglobin 32.5 pg (27.0-31.0); Mean Corpuscular Volume 91.9 fL (78.0-98.0); Mean Platelet Volume 8.9 fL (7.4-10.4); Platelet Count 140 thou/uL (130-400); RBC Distribution Width 11.5 % (11.5-14.5); Red Blood Cell (RBC) Count 3.07 mill/uL (4.20-5.40); White Blood Cell (WBC) Count 8.6 thou/uL (4.8-10.8)
[2020-08-07 04:48] LABS: Anion Gap 12 mmol/L (10-20); BUN (Urea Nitrogen) 41 mg/dL (9.8-20.1); Calc. Creatinine Clearance 134 mL/min (70-130); Calcium 8.2 mg/dL (7.8-10.44); Carbon Dioxide 29 mmol/L (23-31); Chloride 98 mmol/L (98-107); Estimated GFR-MDRD Greater than 90; Glucose 150 mg/dL (80-115); Potassium 4.3 mmol/L (3.5-5.1); Sodium 135 mmol/L (136-145)
[2020-08-07] MEDS: Cefepime 2 GM in Sodium Chloride 0.9% 100 ML IVPB SCH ×2 (06:03→20:03)
[2020-08-07] MEDS: methylPREDNISolone Sod Succ 40 MG VIAL IVP SCH ×4 (06:04→23:25)
[2020-08-07] MEDS ORDERED: Morphine 2 MG/ML VIAL SLOW IVP PRN (06:45)
[2020-08-07] MEDS ORDERED: Fentanyl BOLUS 250 ML IVPB PRN (06:46)
[2020-08-07] MEDS: fentaNYL Citrate/PF 2,000 MCG in Sodium Chloride 0.9% 60 ML IV SCH ×2 (06:54→20:06)
[2020-08-07] MEDS: Mometasone 200 MCG/Formoterol 5 MCG 120 PUFF INHALER INH SCH ×2 (08:00→18:52)
[2020-08-07 08:03] LABS: Actual Bicarbonate (HCO3a) 26.1 mEq/L (22-28); Base Excess (BEa) 1.6 mEq/L (-2.0 to +3.0); CO2 Tension 40.8 mmHg (35.0-45.0); Calcium, Ionized (arterial) 1.16 mmol/L (1.12-1.30); Carboxyhemoglobin (COHb) 0.2 gm% (0.0-3.0); Hemoglobin (Hb) 11.2 g/dL (12.0-16.0); Potassium - ABG Lab 4.39 mmol/L (3.70-5.30); pH, Arterial 7.42 (7.35-7.45)
[2020-08-07 08:05] LABS: O2 Tension (PaO2), arterial 45.5 mmHg (> 80.0); Puncture Site RB
[2020-08-07] MEDS: Lorazepam 2 MG/ML VIAL SLOW IVP PRN ×6 (08:11→17:48)
--- NOTE | 2020-08-07 09:03 | RAD ---
Chest AP view INDICATION: History of viral infection COMPARISON: Prior exam dated August 06, 2020 FINDINGS: Lungs: There is diffuse airspace disease that is stable. Cardiac silhouette: Cardiomegaly is stable. Pulmonary vasculature: Pulmonary vascular congestion persists. Pleural spaces: Small bilateral pleural effusions are stable. No pneumothorax is evident. Upper abdomen: No abnormality seen. Osseous structures: No acute osseous abnormality. Additional findings: Right IJ central venous catheter, ET tube and gastric catheter are unchanged. IMPRESSION: Stable exam.
--- NOTE | 2020-08-07 10:21 | PRG ---
DATE OF SERVICE: 08/07/2020 SUBJECTIVE: Lorri Hogue remains intubated in the vent, sedated. OBJECTIVE: VITAL SINGS: Pulse rate 81, blood pressure 97/40, sats 85%, 100%, 16 PEEP, respiratory rate , peak pressures 22 to 30. CHEST: Bilateral rhonchi. Crackles. CARDIAC: Normal S1 and S2. ABDOMEN: No masses. LABORATORY STUDIES: White count 8000, H and H 10 and 28, platelet count 140. PO2 is only 45, pCO2 of 40, pH 7.42. Lytes are normal. Repeat coronavirus test was positive. IMPRESSION: 1. Respiratory failure, acute respiratory distress syndrome secondary to coronavirus bronchopneumonia. 2. Morbid obesity. 3. Underlying interstitial lung disease. PLAN: Prognosis is grave. In spite of maximum support, she has worsened. Family wants all supportive care including CPR. Repeat chest x-ray is pending. I am going to increase the frequency of her inhalers to every 2 hours to see whether we can improve oxygenation if any at all. One-half hour of critical time. Job ID: [id number]
[2020-08-07] MEDS: Famotidine 20 MG TAB PER TUBE SCH ×2 (10:45→20:05)
[2020-08-07] MEDS: Enoxaparin Sodium 80 MG/0.8 ML SYRINGE SC SCH ×2 (10:45→20:05)
[2020-08-07] MEDS: Montelukast Sodium 10 mg Tablet PO SCH (10:45)
[2020-08-07] MEDS: hydrALAZINE 25 MG TAB PO SCH ×3 (10:45→20:05)
[2020-08-07] MEDS: Amlodipine 5 MG TAB PO SCH (10:45)
[2020-08-07] MEDS: Losartan/Hydrochlorothiazide 100 mg/25 mg Tablet PO SCH (13:31)
[2020-08-07] MEDS: Sodium Chloride 0.9% 1,000 ML IV SCH (14:06)
[2020-08-07] MEDS ORDERED: Rocuronium Bromide 10 MG/ML (10ML VIAL) ONE (14:59)
[2020-08-07] MEDS ORDERED: Rocuronium Bromide 50 MG/5 ML VIAL IVP PRN (15:05)
[2020-08-07] MEDS ORDERED: Rocuronium Bromide 50 MG/5 ML VIAL IVP SCH (15:15)
[2020-08-07] MEDS: Rocuronium Bromide 10 MG/ML (10ML VIAL) IVP PRN ×2 (17:48→20:55)
--- NOTE | 2020-08-07 18:23 | PDOC.HOSPP ---
- Subjective Encounter Date: 08/07/20 Encounter Time: 17:50 Subjective: f/u for COVID PNA/resp failure on mech ventilation. Receiving Cefepime/Lovenox/Solumedrol. - Objective Vital Signs & Weight: Vital Signs (12 hours) Pulse Resp BP 08/07/20 16:00 26 H 08/07/20 15:20 99 08/07/20 14:32 62 127/70 08/07/20 14:06 62 127/70 08/07/20 14:00 33 H 08/07/20 12:00 29 H 08/07/20 10:45 66 124/74 08/07/20 10:30 67 127/71 08/07/20 10:00 33 H 08/07/20 08:00 38 H 08/07/20 07:39 63 129/73 Weight Admit Weight 214 lb Weight 214 lb Most Recent Monitor Data Heart Rate from ECG 101 NIBP 156/80 NIBP BP-Mean 105 Respiration from ECG 26 SpO2 96 I&O: 08/06/20 08/07/20 08/08/20 06:59 06:59 06:59 Intake Total 2890 2973 120 Output Total 2230 2685 725 Balance 660 288 -605 Result Diagrams: 08/07/20 03:25 08/07/20 03:25 Additional Labs: Microbiology 07/27/20 20:30 Urine Straight Catheter Urine Culture - Final NO GROWTH AT 48 HOURS 07/27/20 20:30 Stool Stool Lactoferrin - Final 07/27/20 20:30 Stool Shiga Toxin Test - Final 07/27/20 20:30 Stool Stool Culture - Final 07/27/20 20:30 Stool Escherichia coli 0157 Culture - Final Pseudomonas aeruginosa 07/27/20 20:30 Stool C. difficile GDH Antigen & Toxins - Final 07/27/20 11:09 Sputum Respiratory Culture - Final 07/25/20 21:23 Venous blood - Right Arm Blood Culture - Final Presumptive Corynebacterium sp 07/25/20 21:23 Venous blood - Left Arm Blood Culture - Final Coagulase Neg Staphylococcus Presumptive Corynebacterium sp Coagulase Neg Staphylococcus#2 Coagulase Neg Staphylococcus#3 Laboratory Tests 07/29/20 07/30/20 07/31/20 07:10 07:30 03:04 WBC 14.4 H Hgb 11.5 L Neutrophils % (Manual) 93 H ABG pO2 51.5 L* 50.8 L* 07/31/20 08/01/20 08/01/20 07:45 05:57 07:15 WBC 16.0 H Hgb 11.2 L Neutrophils % (Manual) 86 H ABG pO2 62.7 51.5 L* 08/02/20 07:15 WBC Hgb Neutrophils % (Manual) ABG pO2 55.6 L* Radiology Reviewed by me: Yes (PCXR - diffuse infiltrates bilat) EKG Reviewed by me: Yes (Tele - SR) Hospitalist ROS - Medication Medications: Active Medications Generic Name Dose Route Start Last Admin Trade Name Freq PRN Reason Stop Dose Admin Acetaminophen 650 mg 07/25/20 23:42 07/26/20 21:14 Acetaminophen 325 Mg Tab PO 650 mg Q4H PRN Administration Headache/Fever/Mild Pain (1-3) Albuterol Sulfate 2.5 mg 08/03/20 19:00 08/07/20 15:22 Albuterol Sulfate 2.5 Mg/3 Ml Neb NEB 2.5 mg [id number] MEGHAN Administration Amlodipine Besylate 5 mg 08/01/20 09:00 08/07/20 10:45 Amlodipine 5 Mg Tab PO 5 mg DAILY MEGHAN Administration Atorvastatin Calcium 20 mg 07/26/20 21:00 08/06/20 20:10 Atorvastatin Calcium 20 Mg Tab PO 20 mg HS MEGHAN Administration Enoxaparin Sodium 70 mg 07/26/20 21:00 08/07/20 10:45 Enoxaparin Sodium 80 Mg/0.8 Ml Syringe SC 70 mg 0900,2100 MEGHAN Administration Famotidine 20 mg 07/30/20 09:00 08/07/20 10:45 Famotidine 20 Mg Tab PER TUBE 20 mg Q12HR MEGHAN Administration HCTZ/Losartan Potassium 1 tab 07/28/20 09:00 08/07/20 13:31 Losartan/Hydrochlorothiazide 100 Mg/25 Mg Tablet PO Not Given DAILY MEGHAN Hydralazine HCl 25 mg 07/28/20 09:00 08/07/20 14:06 Hydralazine 25 Mg Tab PO 25 mg TID MEGHAN Administration Sodium Chloride 1,000 mls @ 50 mls/hr 07/28/20 09:00 08/07/20 14:06 Normal Saline 0.9% IV 1,000 mls .Q20H MEGHAN Administration Cefepime HCl 2 gm/ Sodium 100 mls @ 200 mls/hr 07/30/20 18:30 08/07/20 06:03 Chloride IVPB 100 mls Q12HR@0630,1830 MEGHAN Administration Dexmedetomidine HCl 400 mcg/ 100 mls @ 0 mls/hr 08/03/20 10:00 08/07/20 14:29 Sodium Chloride IVPB 100 mls INF MEGHAN Administration Protocol Titrate Fentanyl Citrate 2,000 mcg/ 100 mls @ 0 mls/hr 08/07/20 07:00 08/07/20 06:54 Sodium Chloride IV 100 mls INF MEGHAN Administration Protocol Per Protocol Lorazepam 2 mg 08/07/20 06:45 08/07/20 17:48 Lorazepam 2 Mg/Ml Vial SLOW IVP 2 mg Q1H PRN Administration Breakthrough agitation Methylprednisolone Sodium Succinate 40 mg 07/28/20 12:00 08/07/20 17:48 Methylprednisolone Sod Succ 40 Mg Vial IVP 40 mg Q6HR MEGHAN Administration Mometasone Furoate/Formoterol Fumar 2 puff 08/03/20 18:30 08/07/20 08:00 Mometasone 200 Mcg/Formoterol 5 Mcg 120 Puff Inhaler INH 2 puff BID-RT MEGHAN Administration Montelukast Sodium 10 mg 07/27/20 09:00 08/07/20 10:45 Montelukast Sodium 10 Mg Tablet PO 10 mg DAILY MEGHAN Administration Propofol 1,000 mg 07/28/20 06:15 08/07/20 17:48 Propofol 1,000 Mg/100 Ml Vial IV 08/27/20 06:15 1,000 mg INF PRN Administration TO ACHIEVE GOAL RASS Protocol Rocuronium Anderson 100 mg 08/07/20 16:34 08/07/20 17:48 Rocuronium Anderson 10 Mg/Ml (10ml Vial) IVP 100 mg Q1H PRN Administration PARALIZATION Sertraline HCl 100 mg 07/26/20 21:00 08/06/20 20:11 Sertraline Hcl 100 Mg Tab PO 100 mg HS MEGHAN Administration Sodium Chloride 10 ml 07/27/20 09:00 08/07/20 10:46 Flush - Normal Saline 10 Ml Syringe IVF 10 ml Q12HR MEGHAN Administration Sodium Chloride 10 ml 07/27/20 07:15 07/28/20 01:44 Flush - Normal Saline 10 Ml Syringe IVF 10 ml PRN PRN Administration Saline Flush - Exam General Appearance: ill appearing General - other findings: sedate on mech vent ENT: normocephalic atraumatic, no oropharyngeal lesions Neck: supple, symmetric, no JVD, no thyromegaly, no lymphadenopathy Heart: RRR, no gallops, no rubs, normal peripheral pulses Heart - other findings: S1, S2 Respiratory: tachypneic Respiratory - other findings: diminished bilat, coarse rhonchi Gastrointestinal: soft, non-tender, non-distended, normal bowel sounds, no palpable masses Gastrointestinal - other findings: obese Extremities: no cyanosis, 2+ LE edema Skin: normal turgor Neurological - other findings: sedate on mech vent Psychiatric: somnolent, lethargic Hosp A/P (1) Pneumonia due to COVID-19 virus Code(s): U07.1 - COVID-19; J12.89 - OTHER VIRAL PNEUMONIA Status: Acute Plan: Continue Cefepime/Lovenox/Solumedrol/mech ventilation (2) Acute respiratory failure with hypoxia Code(s): J96.01 - ACUTE RESPIRATORY FAILURE WITH HYPOXIA Status: Acute (3) ILD (interstitial lung disease) Code(s): J84.9 - INTERSTITIAL PULMONARY DISEASE, UNSPECIFIED Status: Chronic (4) Hypertension Code(s): I10 - ESSENTIAL (PRIMARY) HYPERTENSION Status: Chronic Qualifiers: Hypertension type: essential hypertension Qualified Code(s): I10 - Essential (primary) hypertension - Plan continue antibiotics, 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
[2020-08-07] MEDS: Atorvastatin Calcium 20 MG TAB PO SCH (20:05)
[2020-08-08] MEDS: Albuterol Sulfate 2.5 mg/3 ml Neb NEB SCH ×5 (00:46→23:38)
[2020-08-08] MEDS: Rocuronium Bromide 50 MG/5 ML VIAL IVP PRN ×8 (01:10→23:09)
[2020-08-08] MEDS: Propofol 1,000 MG/100 ML VIAL IV PRN ×7 (01:11→22:40)
[2020-08-08] MEDS: Lorazepam 2 MG/ML VIAL SLOW IVP PRN ×8 (01:11→23:10)
[2020-08-08 02:17] LABS: #Basophils 0.1 thou/uL (0.0-0.2); #Lymphocytes 0.2 thou/uL (1.20-3.40); #Monocytes 0.2 thou/uL (0.11-0.59); #Neutrophils 9.2 thou/uL (1.40-6.50); %Basophils 0.6 % (0.0-1.0); %Eosinophils 0.2 % (0.0-10.0); %Lymphocytes 2.4 % (21.0-51.0); %Monocytes 2.1 % (0.0-10.0); %Neutrophils 94.7 % (42.0-75.0); Hemoglobin 11.6 g/dL (12.0-16.0); Mean Corpuscular HGB CONC 33.7 g/dL (32.0-36.0); Mean Corpuscular Hemoglobin 31.8 pg (27.0-31.0); Mean Corpuscular Volume 94.4 fL (78.0-98.0); Mean Platelet Volume 8.5 fL (7.4-10.4); Platelet Count 173 thou/uL (130-400); RBC Distribution Width 11.8 % (11.5-14.5); Red Blood Cell (RBC) Count 3.65 mill/uL (4.20-5.40); White Blood Cell (WBC) Count 9.7 thou/uL (4.8-10.8)
[2020-08-08 03:00] LABS: Anion Gap 13 mmol/L (10-20); BUN (Urea Nitrogen) 48 mg/dL (9.8-20.1); Calc. Creatinine Clearance 112 mL/min (70-130); Calcium 8.3 mg/dL (7.8-10.44); Carbon Dioxide 28 mmol/L (23-31); Chloride 99 mmol/L (98-107); Estimated GFR-MDRD 74; Glucose 132 mg/dL (80-115); Potassium 5.1 mmol/L (3.5-5.1); Sodium 135 mmol/L (136-145)
[2020-08-08] MEDS: methylPREDNISolone Sod Succ 40 MG VIAL IVP SCH ×4 (05:42→23:10)
[2020-08-08] MEDS: Cefepime 2 GM in Sodium Chloride 0.9% 100 ML IVPB SCH ×2 (05:42→17:54)
[2020-08-08 08:00] LABS: Actual Bicarbonate (HCO3a) 28.4 mEq/L (22-28); Base Excess (BEa) -2.2 mEq/L (-2.0 to +3.0); Calcium, Ionized (arterial) 1.19 mmol/L (1.12-1.30); Carboxyhemoglobin (COHb) 0.8 gm% (0.0-3.0); Hemoglobin (Hb) 13.6 g/dL (12.0-16.0); O2 Tension (PaO2), arterial 60.6 mmHg (> 80.0); Potassium - ABG Lab 4.98 mmol/L (3.70-5.30)
[2020-08-08 08:02] LABS: Puncture Site RRA; pH, Arterial 7.17 (7.35-7.45)
[2020-08-08] MEDS: Mometasone 200 MCG/Formoterol 5 MCG 120 PUFF INHALER INH SCH ×2 (08:10→19:08)
[2020-08-08] MEDS: Enoxaparin Sodium 80 MG/0.8 ML SYRINGE SC SCH ×2 (08:30→19:53)
[2020-08-08] MEDS: hydrALAZINE 25 MG TAB PO SCH ×3 (08:30→19:53)
[2020-08-08] MEDS: Famotidine 20 MG TAB PER TUBE SCH ×2 (08:30→19:53)
[2020-08-08] MEDS: Amlodipine 5 MG TAB PO SCH (08:30)
[2020-08-08] MEDS: Montelukast Sodium 10 mg Tablet PO SCH (08:30)
--- NOTE | 2020-08-08 09:10 | RAD ---
EXAM: Chest one view: HISTORY: Respiratory insufficiency COMPARISON: 08/07/2020 FINDINGS: Life support tubes in place and stable. Heart size: Within normal limits. Lungs: Extensive bilateral alveolar and groundglass opacity changes throughout both lungs overall sta ble. No significant pleural effusion IMPRESSION: Extensive bilateral pneumonia, stable. Continued short-term follow-up.
[2020-08-08] MEDS: Losartan/Hydrochlorothiazide 100 mg/25 mg Tablet PO SCH (10:12)
[2020-08-08] MEDS ORDERED: Furosemide 100 MG/10 ML VIAL SLOW IVP SCH (12:00)
[2020-08-08] MEDS ORDERED: Sodium Bicarb 50 MEQ/50 ML Abboject 8.4% SYRINGE IVP SCH (12:00)
--- NOTE | 2020-08-08 12:20 | PRG ---
DATE OF SERVICE: 08/08/2020 SUBJECTIVE: Lorri Hogue remains mechanically ventilated. Her lung compliance is extremely poor. OBJECTIVE: VITAL SIGNS: Heart rate is 80, blood pressure is 125/65, respiratory rate per mechanical ventilation saturations in the high 80s to low 90s. LUNGS: Unchanged. HEART: Unchanged. ABDOMEN: Unchanged. LABORATORY DATA: White count 9.7, hemoglobin 11.6, platelets 173. Sodium 135, potassium 4.3, chloride 98, bicarb 29, BUN 41, creatinine 0.65. PH 7.17, pCO2 of 80, pO2 of 60. Intake and output are positive 2 L. I have tried to eliminate all her fluids. We will cut back her nutritional fluids 20 mL an hour. We will Hep-Lock her IV. She will get 80 of Lasix. We will discontinue the Precedex. We probably should pick one sedative Critical care time 35 min. Job ID: [id number] MTDD
[2020-08-08] MEDS ORDERED: ADMIXTURE FEE IV SCH (12:45)
[2020-08-08] MEDS ORDERED: SODIUM BICARBONATE IV SCH (12:45)
--- NOTE | 2020-08-08 15:31 | EKG ---
Test Reason : Blood Pressure : / mmHG Vent. Rate : 102 BPM Atrial Rate : 102 BPM P-R Int : 132 ms QRS Dur : 086 ms QT Int : 346 ms P-R-T Axes : 019 -11 027 degrees QTc Int : 450 ms Sinus tachycardia Otherwise normal ECG Confirmed by FAM BRODERICK ([id number]), copy editor ROXANA FORTUNE ([id number]) on 08/08/2020 3:30:50 PM Referred By: Confirmed By:FAM Hahn
[2020-08-08] MEDS: fentaNYL Citrate/PF 2,000 MCG in Sodium Chloride 0.9% 60 ML IV SCH (16:52)
--- NOTE | 2020-08-08 16:52 | PDOC.HOSPP ---
- Subjective Encounter Date: 08/08/20 Encounter Time: 16:51 Subjective: Ms. Hogue was seen today in follow-up of COVID pneumonia with respiratory failure. She is intubated and sedated. No complaints voiced by staff. - Objective Vital Signs & Weight: Vital Signs (12 hours) Pulse Resp BP Pulse Ox 08/08/20 16:00 35 H 08/08/20 15:49 102 H 147/70 H 08/08/20 14:00 35 H 08/08/20 13:39 106 H 165/75 H 08/08/20 12:00 35 H 08/08/20 10:38 80 125/65 08/08/20 10:00 35 H 08/08/20 08:54 85 08/08/20 08:30 91 145/66 H 08/08/20 08:00 26 H 96 08/08/20 07:34 82 131/67 08/08/20 06:00 26 H Weight Admit Weight 214 lb Weight 214 lb Most Recent Monitor Data Heart Rate from ECG 103 NIBP 128/64 NIBP BP-Mean 85 Respiration from ECG 35 SpO2 92 I&O: 08/07/20 08/08/20 08/09/20 06:59 06:59 06:59 Intake Total 2973 3476.8 308 Output Total 2685 1455 1230 Balance 288 2021.8 -922 Result Diagrams: 08/08/20 02:00 08/08/20 02:00 Hospitalist ROS - Medication Medications: Active Medications Generic Name Dose Route Start Last Admin Trade Name Freq PRN Reason Stop Dose Admin Acetaminophen 650 mg 07/25/20 23:42 07/26/20 21:14 Acetaminophen 325 Mg Tab PO 650 mg Q4H PRN Administration Headache/Fever/Mild Pain (1-3) Albuterol Sulfate 2.5 mg 08/03/20 19:00 08/08/20 12:00 Albuterol Sulfate 2.5 Mg/3 Ml Neb NEB 2.5 mg [id number] MEGHAN Administration Amlodipine Besylate 5 mg 08/01/20 09:00 08/08/20 08:30 Amlodipine 5 Mg Tab PO 5 mg DAILY MEGHAN Administration Enoxaparin Sodium 70 mg 07/26/20 21:00 08/08/20 08:30 Enoxaparin Sodium 80 Mg/0.8 Ml Syringe SC 70 mg 0900,2099 MEGHAN Administration Famotidine 20 mg 07/30/20 09:00 08/08/20 08:30 Famotidine 20 Mg Tab PER TUBE 20 mg Q12HR MEGHAN Administration HCTZ/Losartan Potassium 1 tab 07/28/20 09:00 08/08/20 10:12 Losartan/Hydrochlorothiazide 100 Mg/25 Mg Tablet PO 1 tab DAILY MEGHAN Administration Hydralazine HCl 25 mg 07/28/20 09:00 08/08/20 15:49 Hydralazine 25 Mg Tab PO 25 mg TID MEGHAN Administration Cefepime HCl 2 gm/ Sodium 100 mls @ 200 mls/hr 07/30/20 18:30 08/08/20 05:42 Chloride IVPB 100 mls Q12HR@0630,1830 MEGHAN Administration Fentanyl Citrate 2,000 mcg/ 100 mls @ 0 mls/hr 08/07/20 07:00 08/07/20 20:06 Sodium Chloride IV 100 mls INF MEGHAN Administration Protocol Per Protocol Tocilizumab 400 mg/ Sodium 120 mls @ 120 mls/hr 08/08/20 15:30 08/08/20 16:06 Chloride IV 08/08/20 18:00 120 mls NOW MEGHAN Administration Lorazepam 2 mg 08/07/20 06:45 08/08/20 15:56 Lorazepam 2 Mg/Ml Vial SLOW IVP 2 mg Q1H PRN Administration Breakthrough agitation Methylprednisolone Sodium Succinate 40 mg 07/28/20 12:00 08/08/20 11:31 Methylprednisolone Sod Succ 40 Mg Vial IVP 40 mg Q6HR MEGHAN Administration Mometasone Furoate/Formoterol Fumar 2 puff 08/03/20 18:30 08/08/20 08:10 Mometasone 200 Mcg/Formoterol 5 Mcg 120 Puff Inhaler INH 2 puff BID-RT MEGHAN Administration Morphine Sulfate 2 mg 08/07/20 06:45 08/08/20 01:10 Morphine 2 Mg/Ml Vial SLOW IVP 2 mg Q1H PRN Administration Breakthrough Pain/Agitation Propofol 1,000 mg 07/28/20 06:15 08/08/20 16:26 Propofol 1,000 Mg/100 Ml Vial IV 08/27/20 06:15 1,000 mg INF PRN Administration TO ACHIEVE GOAL RASS Protocol Rocuronium [place] 100 mg 08/07/20 21:28 08/08/20 15:55 Rocuronium [place] 50 Mg/5 Ml Vial IVP 100 mg Q1H PRN Administration PARALIZATION Sertraline HCl 100 mg 07/26/20 21:00 08/07/20 20:06 Sertraline Hcl 100 Mg Tab PO 100 mg HS MEGHAN Administration Sodium Chloride 10 ml 07/27/20 09:00 08/08/20 08:31 Flush - Normal Saline 10 Ml Syringe IVF 10 ml Q12HR MEGHAN Administration Sodium Chloride 10 ml 07/27/20 07:15 07/28/20 01:44 Flush - Normal Saline 10 Ml Syringe IVF 10 ml PRN PRN Administration Saline Flush - Exam Eye: PERRL, anicteric sclera Heart: RRR, no murmur, no gallops, no rubs, normal peripheral pulses Respiratory: no ronchi, rales (raloes at both bases) Gastrointestinal: soft, non-tender, non-distended, normal bowel sounds, no palpable masses, no hepatomegaly, no splenomegaly Extremities: 2+ LE edema (+ edma in both upper and lower extemities) Hosp A/P (1) Acute respiratory failure with hypoxia Code(s): J96.01 - ACUTE RESPIRATORY FAILURE WITH HYPOXIA Status: Acute (2) Pneumonia due to COVID-19 virus Code(s): U07.1 - COVID-19; J12.89 - OTHER VIRAL PNEUMONIA Status: Acute (3) Diastolic dysfunction Code(s): I51.9 - HEART DISEASE, UNSPECIFIED Status: Chronic (4) Hypertension Code(s): I10 - ESSENTIAL (PRIMARY) HYPERTENSION Status: Chronic Qualifiers: Hypertension type: essential hypertension Qualified Code(s): I10 - Essential (primary) hypertension (5) ILD (interstitial lung disease) Code(s): J84.9 - INTERSTITIAL PULMONARY DISEASE, UNSPECIFIED Status: Chronic (6) Obesity (BMI 30.0-34.9) Code(s): E66.9 - OBESITY, UNSPECIFIED Status: Chronic - Plan * COVID pneumonia with respiratory failure- she continues to require mechanical ventilation * She was given IL-6 * Continue Lovenox and Solumedrol * DM- blood glucose is stable * Chronic diastolic heart failure- She was given IV Lasix, and agree with negative fluid balance
[2020-08-09] MEDS: Propofol 1,000 MG/100 ML VIAL IV PRN ×8 (02:01→23:40)
[2020-08-09 05:07] LABS: Band 29 % (5-11); Hemoglobin 11.6 g/dL (12.0-16.0); Lymphocytes 4 % (21-51); MDiff Complete? YES; Mean Corpuscular HGB CONC 33.6 g/dL (32.0-36.0); Mean Corpuscular Hemoglobin 31.4 pg (27.0-31.0); Mean Corpuscular Volume 93.2 fL (78.0-98.0); Mean Platelet Volume 8.6 fL (7.4-10.4); Metamyelocyte 2 % (0-0); Monocytes 3 % (0-10); Myelocyte 2 % (0-0); Neutrophil 60 % (42-75); Platelet Count 159 thou/uL (130-400); RBC Distribution Width 11.8 % (11.5-14.5); White Blood Cell (WBC) Count 5.7 thou/uL (4.8-10.8)
[2020-08-09] MEDS: methylPREDNISolone Sod Succ 40 MG VIAL IVP SCH ×4 (05:25→23:09)
[2020-08-09] MEDS: Cefepime 2 GM in Sodium Chloride 0.9% 100 ML IVPB SCH ×2 (05:25→18:39)
[2020-08-09] MEDS: Rocuronium Bromide 50 MG/5 ML VIAL IVP PRN ×4 (05:28→23:09)
[2020-08-09] MEDS: Lorazepam 2 MG/ML VIAL SLOW IVP PRN ×4 (05:28→23:09)
[2020-08-09 05:44] LABS: Anion Gap 16 mmol/L (10-20); BUN (Urea Nitrogen) 79 mg/dL (9.8-20.1); Calc. Creatinine Clearance 53 mL/min (70-130); Calcium 8.2 mg/dL (7.8-10.44); Carbon Dioxide 31 mmol/L (23-31); Chloride 95 mmol/L (98-107); Estimated GFR-MDRD 31; Glucose 145 mg/dL (80-115); Potassium 4.6 mmol/L (3.5-5.1); Sodium 137 mmol/L (136-145)
[2020-08-09] MEDS: Albuterol Sulfate 2.5 mg/3 ml Neb NEB SCH ×4 (08:02→23:46)
[2020-08-09] MEDS: Mometasone 200 MCG/Formoterol 5 MCG 120 PUFF INHALER INH SCH ×2 (08:02→18:25)
[2020-08-09] MEDS: Famotidine 20 MG TAB PER TUBE SCH ×2 (08:11→21:19)
[2020-08-09] MEDS: Losartan/Hydrochlorothiazide 100 mg/25 mg Tablet PO SCH (08:11)
[2020-08-09] MEDS: hydrALAZINE 25 MG TAB PO SCH ×3 (08:11→21:19)
[2020-08-09] MEDS: Amlodipine 5 MG TAB PO SCH (08:12)
[2020-08-09] MEDS: Enoxaparin Sodium 80 MG/0.8 ML SYRINGE SC SCH ×2 (08:12→21:19)
--- NOTE | 2020-08-09 09:50 | RAD ---
EXAM: Chest one view: HISTORY: Respiratory insufficiency COMPARISON: 08/08/2020 FINDINGS: Stable life-support tubes. Heart size: Minimal cardiomegaly. Lungs: Extensive bilateral alveolar and groundglass opacity changes evidence for extensive bilateral pneumonia. Slight costophrenic angle blunting. IMPRESSION: Extensive stable bilateral pneumonia.
--- NOTE | 2020-08-09 10:45 | PDOC.HOSPP ---
- Subjective Encounter Date: 08/09/20 Encounter Time: 10:44 Subjective: Ms. Hogue was seen today in follow-up of COVID pneumonia and respiratory failure. She remains intubated. - Objective Vital Signs & Weight: Vital Signs (12 hours) Temp Pulse Resp BP Pulse Ox 08/09/20 10:00 35 H 08/09/20 08:12 86 132/67 08/09/20 08:11 86 132/67 08/09/20 08:02 85 132/67 08/09/20 08:00 35 H 08/09/20 07:28 89 L 08/09/20 07:00 97.7 F 08/09/20 06:00 35 H 08/09/20 04:00 98.4 F 35 H 08/09/20 02:55 84 08/09/20 02:00 35 H 08/09/20 00:00 97.8 F 35 H 08/08/20 23:38 96 105/49 L Weight Admit Weight 214 lb Weight 214 lb Most Recent Monitor Data Heart Rate from ECG 92 NIBP 130/59 NIBP BP-Mean 82 Respiration from ECG 35 SpO2 90 I&O: 08/08/20 08/09/20 08/10/20 06:59 06:59 06:59 Intake Total 3476.8 2379.1 70 Output Total 1455 1950 115 Balance 2021.8 429.1 -45 Result Diagrams: 08/09/20 04:15 08/09/20 04:15 Hospitalist ROS - Medication Medications: Active Medications Generic Name Dose Route Start Last Admin Trade Name Freq PRN Reason Stop Dose Admin Acetaminophen 650 mg 07/25/20 23:42 07/26/20 21:14 Acetaminophen 325 Mg Tab PO 650 mg Q4H PRN Administration Headache/Fever/Mild Pain (1-3) Albuterol Sulfate 2.5 mg 08/03/20 19:00 08/09/20 08:02 Albuterol Sulfate 2.5 Mg/3 Ml Neb NEB 2.5 mg [id number] MEGHAN Administration Amlodipine Besylate 5 mg 08/01/20 09:00 08/09/20 08:12 Amlodipine 5 Mg Tab PO 5 mg DAILY MEGHAN Administration Enoxaparin Sodium 70 mg 07/26/20 21:00 08/09/20 08:12 Enoxaparin Sodium 80 Mg/0.8 Ml Syringe SC 70 mg 0900,2100 MEGHAN Administration Famotidine 20 mg 07/30/20 09:00 08/09/20 08:11 Famotidine 20 Mg Tab PER TUBE 20 mg Q12HR MEGHAN Administration HCTZ/Losartan Potassium 1 tab 07/28/20 09:00 08/09/20 08:11 Losartan/Hydrochlorothiazide 100 Mg/25 Mg Tablet PO 1 tab DAILY MEGHAN Administration Hydralazine HCl 25 mg 07/28/20 09:00 08/09/20 08:11 Hydralazine 25 Mg Tab PO 25 mg TID MEGHAN Administration Cefepime HCl 2 gm/ Sodium 100 mls @ 200 mls/hr 07/30/20 18:30 08/09/20 05:25 Chloride IVPB 100 mls Q12HR@0630,1830 MEGHAN Administration Fentanyl Citrate 2,000 mcg/ 100 mls @ 0 mls/hr 08/07/20 07:00 08/08/20 16:52 Sodium Chloride IV 100 mls INF MEGHAN Administration Protocol Per Protocol Lorazepam 2 mg 08/07/20 06:45 08/09/20 05:28 Lorazepam 2 Mg/Ml Vial SLOW IVP 2 mg Q1H PRN Administration Breakthrough agitation Methylprednisolone Sodium Succinate 40 mg 07/28/20 12:00 08/09/20 05:25 Methylprednisolone Sod Succ 40 Mg Vial IVP 40 mg Q6HR MEGHAN Administration Mometasone Furoate/Formoterol Fumar 2 puff 08/03/20 18:30 08/09/20 08:02 Mometasone 200 Mcg/Formoterol 5 Mcg 120 Puff Inhaler INH 2 puff BID-RT MEGHAN Administration Morphine Sulfate 2 mg 08/07/20 06:45 08/08/20 01:10 Morphine 2 Mg/Ml Vial SLOW IVP 2 mg Q1H PRN Administration Breakthrough Pain/Agitation Propofol 1,000 mg 07/28/20 06:15 08/09/20 08:27 Propofol 1,000 Mg/100 Ml Vial IV 08/27/20 06:15 1,000 mg INF PRN Administration TO ACHIEVE GOAL RASS Protocol Rocuronium [place] 100 mg 08/07/20 21:28 08/09/20 05:28 Rocuronium [place] 50 Mg/5 Ml Vial IVP 100 mg Q1H PRN Administration PARALIZATION Sertraline HCl 100 mg 07/26/20 21:00 08/08/20 19:54 Sertraline Hcl 100 Mg Tab PO 100 mg HS MEGHAN Administration Sodium Chloride 10 ml 07/27/20 09:00 08/09/20 08:12 Flush - Normal Saline 10 Ml Syringe IVF 10 ml Q12HR MEGHAN Administration Sodium Chloride 10 ml 07/27/20 07:15 07/28/20 01:44 Flush - Normal Saline 10 Ml Syringe IVF 10 ml PRN PRN Administration Saline Flush - Exam Eye: PERRL, anicteric sclera Heart: RRR, no murmur, no gallops, no rubs, normal peripheral pulses Respiratory: rales (+ rales through out) Gastrointestinal: soft, non-tender, non-distended, normal bowel sounds, no palpable masses, no hepatomegaly Extremities: no cyanosis, 2+ LE edema (+ generalized edema in both upper and lower extremities) Hosp A/P (1) Acute respiratory failure with hypoxia Code(s): J96.01 - ACUTE RESPIRATORY FAILURE WITH HYPOXIA Status: Acute (2) Pneumonia due to COVID-19 virus Code(s): U07.1 - COVID-19; J12.89 - OTHER VIRAL PNEUMONIA Status: Acute (3) Diastolic dysfunction Code(s): I51.9 - HEART DISEASE, UNSPECIFIED Status: Chronic (4) Hypertension Code(s): I10 - ESSENTIAL (PRIMARY) HYPERTENSION Status: Chronic Qualifiers: Hypertension type: essential hypertension Qualified Code(s): I10 - Essential (primary) hypertension (5) ILD (interstitial lung disease) Code(s): J84.9 - INTERSTITIAL PULMONARY DISEASE, UNSPECIFIED Status: Chronic (6) Obesity (BMI 30.0-34.9) Code(s): E66.9 - OBESITY, UNSPECIFIED Status: Chronic (7) Acute kidney injury Code(s): N17.9 - ACUTE KIDNEY FAILURE, UNSPECIFIED Status: Acute - Plan * COVID pneumonia with respiratory failure- she continues to require mechanical ventilation * She was given IL-6 * Continue Lovenox and Solumedrol * Acute kidney injury- this mat be due to volume depletion- will monitor- we may need to give her some fluid back * DM- blood glucose is stable * Chronic diastolic heart failure-compensated
[2020-08-09] MEDS: fentaNYL Citrate/PF 2,000 MCG in Sodium Chloride 0.9% 60 ML IV SCH (13:00)
--- NOTE | 2020-08-09 18:04 | PRG ---
DATE OF SERVICE: 08/09/2020 SUBJECTIVE: Lorri Jones is stable but no better. We discussed proning, but I do not think that is feasible. Her high pCO2 suggests that she has such diffuse lung disease. Her gas exchange is impaired both anteriorly and posteriorly. OBJECTIVE: VITAL SIGNS: Blood pressure 114/56, heart rate 99, respiratory rates in the 30s. She is afebrile. LUNGS: Remarkable for coarse equal breath sounds. HEART: Regular rhythm. ABDOMEN: Soft. LABORATORY DATA: White count 5.7, hemoglobin 11.6, platelets 159. Sodium 137, potassium 4.6, chloride 95, bicarb 31, BUN 79, creatinine 1.65. IMPRESSION: COVID pneumonia with no improvement. PLAN: Supportive care. her and answered all of his questions. Critical care time 30 min. Job ID: [id number] MTDD
[2020-08-10] MEDS: Propofol 1,000 MG/100 ML VIAL IV PRN ×7 (02:01→20:26)
[2020-08-10 04:02] LABS: Anion Gap 17 mmol/L (10-20); BUN (Urea Nitrogen) 105 mg/dL (9.8-20.1); Calc. Creatinine Clearance 35 mL/min (70-130); Calcium 8.2 mg/dL (7.8-10.44); Carbon Dioxide 29 mmol/L (23-31); Chloride 94 mmol/L (98-107); Estimated GFR-MDRD 19; Glucose 123 mg/dL (80-115); Potassium 5.4 mmol/L (3.5-5.1); Sodium 135 mmol/L (136-145)
[2020-08-10] MEDS: Lorazepam 2 MG/ML VIAL SLOW IVP PRN ×4 (04:23→20:48)
[2020-08-10] MEDS: Rocuronium Bromide 50 MG/5 ML VIAL IVP PRN ×6 (04:23→20:44)
[2020-08-10] MEDS: methylPREDNISolone Sod Succ 40 MG VIAL IVP SCH ×3 (05:22→18:26)
[2020-08-10 05:56] LABS: Band 40 % (5-11); Hemoglobin 11.5 g/dL (12.0-16.0); Lymphocytes 6 % (21-51); MDiff Complete? YES; Mean Corpuscular Hemoglobin 32.2 pg (27.0-31.0); Mean Platelet Volume 8.4 fL (7.4-10.4); Monocytes 6 % (0-10); Neutrophil 48 % (42-75); Platelet Count 179 thou/uL (130-400); RBC Distribution Width 11.9 % (11.5-14.5); Red Blood Cell (RBC) Count 3.56 mill/uL (4.20-5.40); White Blood Cell (WBC) Count 6.2 thou/uL (4.8-10.8)
[2020-08-10] MEDS: Albuterol Sulfate 2.5 mg/3 ml Neb NEB SCH ×3 (06:58→18:42)
[2020-08-10] MEDS: Mometasone 200 MCG/Formoterol 5 MCG 120 PUFF INHALER INH SCH ×2 (07:00→18:42)
[2020-08-10 07:11] LABS: Actual Bicarbonate (HCO3a) 28.6 mEq/L (22-28); Base Excess (BEa) -0.6 mEq/L (-2.0 to +3.0); Calcium, Ionized (arterial) 1.12 mmol/L (1.12-1.30); Carboxyhemoglobin (COHb) 0.9 gm% (0.0-3.0); Potassium - ABG Lab 5.19 mmol/L (3.70-5.30)
[2020-08-10 07:45] LABS: pH, Arterial 7.22 (7.35-7.45)
[2020-08-10 07:46] LABS: ALV-art Gradient 572.675 mmHg (0-20); CO2 Tension 72.1 mmHg (35.0-45.0); O2 Tension (PaO2), arterial 50.2 mmHg (> 80.0); Puncture Site LRA
[2020-08-10] MEDS ORDERED: Sodium Chloride 0.9% 1,000 ML IV SCH (08:00)
[2020-08-10] MEDS: hydrALAZINE 25 MG TAB PO SCH ×4 (08:11→20:26)
[2020-08-10] MEDS: Amlodipine 5 MG TAB PO SCH ×2 (08:12→08:35)
[2020-08-10] MEDS: Enoxaparin Sodium 80 MG/0.8 ML SYRINGE SC SCH (08:12)
[2020-08-10] MEDS: Losartan/Hydrochlorothiazide 100 mg/25 mg Tablet PO SCH ×2 (08:13→08:35)
--- NOTE | 2020-08-10 08:50 | PDOC.HOSPP ---
- Subjective Encounter Date: 08/10/20 Encounter Time: 08:48 Subjective: Ms. Hogue was seen today in follow-up of COVID pneumonia, Her nurse noted coffee ground emesis. She has not improved much. - Objective Vital Signs & Weight: Vital Signs (12 hours) Temp Pulse Resp BP Pulse Ox 08/10/20 08:35 91 125/65 08/10/20 08:34 91 125/65 08/10/20 07:31 86 L 08/10/20 07:04 91 125/65 08/10/20 07:00 97.4 F L 08/10/20 06:58 88 35 H 88 L 08/10/20 06:00 35 H 08/10/20 04:00 98.6 F 35 H 08/10/20 02:14 90 08/10/20 02:00 35 H 08/10/20 00:00 98.4 F 35 H 08/09/20 23:47 94 112/57 L 08/09/20 22:05 92 08/09/20 22:00 35 H 08/09/20 21:19 94 140/55 L Weight Admit Weight 214 lb Weight 214 lb Most Recent Monitor Data Heart Rate from ECG 87 NIBP 125/65 NIBP BP-Mean 85 Respiration from ECG 35 SpO2 87 I&O: 08/09/20 08/10/20 08/11/20 06:59 06:59 06:59 Intake Total 2379.1 924.3 60 Output Total 1950 473 20 Balance 429.1 451.3 40 Result Diagrams: 08/10/20 03:30 08/10/20 03:30 Hospitalist ROS - Medication Medications: Active Medications Generic Name Dose Route Start Last Admin Trade Name Freq PRN Reason Stop Dose Admin Acetaminophen 650 mg 07/25/20 23:42 07/26/20 21:14 Acetaminophen 325 Mg Tab PO 650 mg Q4H PRN Administration Headache/Fever/Mild Pain (1-3) Albuterol Sulfate 2.5 mg 08/03/20 19:00 08/10/20 06:58 Albuterol Sulfate 2.5 Mg/3 Ml Neb NEB 2.5 mg [id number] MEGHAN Administration Amlodipine Besylate 5 mg 08/01/20 09:00 08/10/20 08:35 Amlodipine 5 Mg Tab PO Not Given DAILY MEGHAN Enoxaparin Sodium 70 mg 07/26/20 21:00 08/10/20 08:12 Enoxaparin Sodium 80 Mg/0.8 Ml Syringe SC 70 mg 0900,2100 MEGHAN Administration HCTZ/Losartan Potassium 1 tab 07/28/20 09:00 08/10/20 08:35 Losartan/Hydrochlorothiazide 100 Mg/25 Mg Tablet PO Not Given DAILY MEGHAN Hydralazine HCl 25 mg 07/28/20 09:00 08/10/20 08:34 Hydralazine 25 Mg Tab PO Not Given TID MEGHAN Fentanyl Citrate 2,000 mcg/ 100 mls @ 0 mls/hr 08/07/20 07:00 08/09/20 13:00 Sodium Chloride IV 100 mls INF MEGHAN Administration Protocol Per Protocol Sodium Chloride 1,000 mls @ 125 mls/hr 08/10/20 08:00 08/10/20 08:13 Normal Saline 0.9% IV 1,000 mls .Q8H MEGHAN Administration Lorazepam 2 mg 08/07/20 06:45 08/10/20 04:23 Lorazepam 2 Mg/Ml Vial SLOW IVP 2 mg Q1H PRN Administration Breakthrough agitation Methylprednisolone Sodium Succinate 40 mg 07/28/20 12:00 08/10/20 05:22 Methylprednisolone Sod Succ 40 Mg Vial IVP 40 mg Q6HR MEGHAN Administration Mometasone Furoate/Formoterol Fumar 2 puff 08/03/20 18:30 08/10/20 07:00 Mometasone 200 Mcg/Formoterol 5 Mcg 120 Puff Inhaler INH 2 puff BID-RT MEGHAN Administration Morphine Sulfate 2 mg 08/07/20 06:45 08/08/20 01:10 Morphine 2 Mg/Ml Vial SLOW IVP 2 mg Q1H PRN Administration Breakthrough Pain/Agitation Propofol 1,000 mg 07/28/20 06:15 08/10/20 08:14 Propofol 1,000 Mg/100 Ml Vial IV 08/27/20 06:15 1,000 mg INF PRN Administration TO ACHIEVE GOAL RASS Protocol Rocuronium [place] 100 mg 08/07/20 21:28 08/10/20 08:14 Rocuronium [place] 50 Mg/5 Ml Vial IVP 100 mg Q1H PRN Administration PARALIZATION Sertraline HCl 100 mg 07/26/20 21:00 08/09/20 21:20 Sertraline Hcl 100 Mg Tab PO 100 mg HS MEGHAN Administration Sodium Chloride 10 ml 07/27/20 09:00 08/10/20 08:14 Flush - Normal Saline 10 Ml Syringe IVF 10 ml Q12HR MEGHAN Administration Sodium Chloride 10 ml 07/27/20 07:15 07/28/20 01:44 Flush - Normal Saline 10 Ml Syringe IVF 10 ml PRN PRN Administration Saline Flush - Exam Eye: PERRL, anicteric sclera Heart: RRR, no murmur, no gallops, no rubs, normal peripheral pulses Respiratory: rales Gastrointestinal: soft, non-distended, normal bowel sounds Extremities: 2+ LE edema (+ edema in both upper and lower extremities) Hosp A/P (1) Acute respiratory failure with hypoxia Code(s): J96.01 - ACUTE RESPIRATORY FAILURE WITH HYPOXIA Status: Acute (2) Pneumonia due to COVID-19 virus Code(s): U07.1 - COVID-19; J12.89 - OTHER VIRAL PNEUMONIA Status: Acute (3) Diastolic dysfunction Code(s): I51.9 - HEART DISEASE, UNSPECIFIED Status: Chronic (4) Hypertension Code(s): I10 - ESSENTIAL (PRIMARY) HYPERTENSION Status: Chronic Qualifiers: Hypertension type: essential hypertension Qualified Code(s): I10 - Essential (primary) hypertension (5) ILD (interstitial lung disease) Code(s): J84.9 - INTERSTITIAL PULMONARY DISEASE, UNSPECIFIED Status: Chronic (6) Obesity (BMI 30.0-34.9) Code(s): E66.9 - OBESITY, UNSPECIFIED Status: Chronic (7) Acute kidney injury Code(s): N17.9 - ACUTE KIDNEY FAILURE, UNSPECIFIED Status: Acute - Plan * COVID pneumonia with respiratory failure- she continues to require mechanical ventilation * GI- bleed- will change Pepcid to Protonix, and monitor her H&H * She was given IL-6 * Continue Lovenox and Solumedrol * Acute kidney injury- this has worsened- will give IV fluids, and consider Nephrology Consult * DM- blood glucose is stable * Chronic diastolic heart failure-compensated * Prognosis is guarded
[2020-08-10] MEDS ORDERED: Protamine Sulfate 50 MG/5 ML VIAL SLOW IVP SCH (09:15)
[2020-08-10] MEDS: Pantoprazole 40 MG VIAL IVP SCH ×2 (09:27→20:25)
--- NOTE | 2020-08-10 09:45 | RAD ---
PORTABLE CHEST: Date: 08/10/2020 HISTORY: Respiratory distress. FINDINGS: Endotracheal and NG tubes remain in satisfactory position. Right-sided central line unchanged. Diffus e interstitial alveolar lung changes are stable. IMPRESSION: Stable exam. POS: OFF
[2020-08-10] MEDS: fentaNYL Citrate/PF 2,000 MCG in Sodium Chloride 0.9% 60 ML IV SCH (09:59)
[2020-08-10 11:56] LABS: Hemoglobin 9.9 g/dL (12.0-16.0)
[2020-08-10 17:08] LABS: Hemoglobin 8.3 g/dL (12.0-16.0); Platelet Count 155 thou/uL (130-400)
--- NOTE | 2020-08-10 17:15 | PRG ---
DATE OF SERVICE: 08/10/2020 SUBJECTIVE: Ms. Hogue did not have a fall in hemoglobin today, but started having blood out of her NG tube. She was given protamine and plasma since her Lovenox just being given to her. She had 40% bands on her peripheral smear today. Hemodynamics are the same. OBJECTIVE: LUNGS: Unchanged. HEART: Unchanged. ABDOMEN: Unchanged. LABORATORY DATA: she is acutely bleeding. BUN is 105, creatinine 2.5 at this point in time. Potassium is up to 5.4. Intake and outputs only positive 461. She has developed acute renal failure with COVID, it is a bad sign. Chest radiograph still shows diffuse infiltrates. We will continue supportive care. Critical care time 35 mi. Job ID: [id number] MTDD
[2020-08-10] MEDS ORDERED: methylPREDNISolone Sod Succ 40 MG VIAL ONE (18:23)
[2020-08-10] MEDS ORDERED: Famotidine 20 MG TAB PER TUBE SCH (21:00)
[2020-08-11] MEDS: methylPREDNISolone Sod Succ 40 MG VIAL IVP SCH ×4 (00:03→17:30)
[2020-08-11] MEDS: Albuterol Sulfate 2.5 mg/3 ml Neb NEB SCH ×5 (00:04→23:33)
[2020-08-11] MEDS: Propofol 1,000 MG/100 ML VIAL IV PRN ×7 (00:09→18:28)
[2020-08-11 03:59] LABS: #Lymphocytes 0.5 thou/uL (1.20-3.40); #Monocytes 0.3 thou/uL (0.11-0.59); #Neutrophils 5.7 thou/uL (1.40-6.50); %Eosinophils 0.4 % (0.0-10.0); %Lymphocytes 7.7 % (21.0-51.0); Hemoglobin 7.4 g/dL (12.0-16.0); Mean Corpuscular HGB CONC 35.2 g/dL (32.0-36.0); Mean Corpuscular Hemoglobin 32.3 pg (27.0-31.0); Mean Corpuscular Volume 91.8 fL (78.0-98.0); Mean Platelet Volume 8.3 fL (7.4-10.4); Platelet Count 154 thou/uL (130-400); RBC Distribution Width 11.6 % (11.5-14.5); White Blood Cell (WBC) Count 6.5 thou/uL (4.8-10.8)
[2020-08-11 04:19] LABS: Anion Gap 22 mmol/L (10-20); Calc. Creatinine Clearance 25 mL/min (70-130); Calcium 7.8 mg/dL (7.8-10.44); Carbon Dioxide 24 mmol/L (23-31); Chloride 92 mmol/L (98-107); Estimated GFR-MDRD 13; Glucose 111 mg/dL (80-115); Potassium 5.7 mmol/L (3.5-5.1); Sodium 132 mmol/L (136-145)
[2020-08-11 04:30] LABS: BUN (Urea Nitrogen) 121 mg/dL (9.8-20.1)
[2020-08-11] MEDS: fentaNYL Citrate/PF 2,000 MCG in Sodium Chloride 0.9% 60 ML IV SCH (06:04)
[2020-08-11] MEDS: Mometasone 200 MCG/Formoterol 5 MCG 120 PUFF INHALER INH SCH ×2 (07:34→18:46)
[2020-08-11 07:37] LABS: Base Excess (BEa) -0.5 mEq/L (-2.0 to +3.0); Calcium, Ionized (arterial) 1.02 mmol/L (1.12-1.30); Carboxyhemoglobin (COHb) 1.4 gm% (0.0-3.0); Hemoglobin (Hb) 7.5 g/dL (12.0-16.0); Potassium - ABG Lab 5.58 mmol/L (3.70-5.30)
[2020-08-11 07:38] LABS: CO2 Tension 62.6 mmHg (35.0-45.0); pH, Arterial 7.25 (7.35-7.45)
[2020-08-11 07:39] LABS: O2 Tension (PaO2), arterial 38.6 mmHg (> 80.0)
[2020-08-11 07:41] LABS: Puncture Site RRA
[2020-08-11] MEDS ORDERED: Norepinephrine 8 MG/0.9% NS 250 ML ONE (08:04)
[2020-08-11] MEDS ORDERED: Enoxaparin Sodium 80 MG/0.8 ML SYRINGE SC SCH (09:00)
--- NOTE | 2020-08-11 09:25 | PDOC.HOSPP ---
- Subjective Encounter Date: 08/11/20 Encounter Time: 09:23 Subjective: Ms. Hogue was seen today in follow-up of COVID pneumoniam and respiratory failure. She is intubated. - Objective Vital Signs & Weight: Vital Signs (12 hours) Temp Pulse Resp BP 08/11/20 07:34 97 08/11/20 06:00 35 H 08/11/20 04:00 35 H 08/11/20 02:59 89 101/55 L 08/11/20 02:00 35 H 08/11/20 00:05 89 108/56 L 08/11/20 00:00 98.1 F 35 H 08/10/20 22:17 92 111/57 L 08/10/20 22:00 35 H Weight Admit Weight 214 lb Weight 214 lb Most Recent Monitor Data Heart Rate from ECG 96 NIBP 109/58 NIBP BP-Mean 75 Respiration from ECG 34 SpO2 74 I&O: 08/10/20 08/11/20 08/12/20 06:59 06:59 06:59 Intake Total 924.3 1863.4 Output Total 473 1147 Balance 451.3 716.4 Result Diagrams: 08/11/20 03:13 08/11/20 03:13 Hospitalist ROS - Medication Medications: Active Medications Generic Name Dose Route Start Last Admin Trade Name Freq PRN Reason Stop Dose Admin Acetaminophen 650 mg 07/25/20 23:42 07/26/20 21:14 Acetaminophen 325 Mg Tab PO 650 mg Q4H PRN Administration Headache/Fever/Mild Pain (1-3) Albuterol Sulfate 2.5 mg 08/03/20 19:00 08/11/20 07:34 Albuterol Sulfate 2.5 Mg/3 Ml Neb NEB 2.5 mg [id number] MEGHAN Administration Amlodipine Besylate 5 mg 08/01/20 09:00 08/10/20 08:35 Amlodipine 5 Mg Tab PO Not Given DAILY MEGHAN HCTZ/Losartan Potassium 1 tab 07/28/20 09:00 08/10/20 08:35 Losartan/Hydrochlorothiazide 100 Mg/25 Mg Tablet PO Not Given DAILY MEGHAN Hydralazine HCl 25 mg 07/28/20 09:00 08/10/20 20:26 Hydralazine 25 Mg Tab PO Not Given TID MEGHAN Fentanyl Citrate 2,000 mcg/ 100 mls @ 0 mls/hr 08/07/20 07:00 08/11/20 06:04 Sodium Chloride IV 100 mls INF MEGHAN Administration Protocol Per Protocol Lorazepam 2 mg 08/07/20 06:45 08/10/20 20:48 Lorazepam 2 Mg/Ml Vial SLOW IVP 2 mg Q1H PRN Administration Breakthrough agitation Methylprednisolone Sodium Succinate 40 mg 07/28/20 12:00 08/11/20 05:42 Methylprednisolone Sod Succ 40 Mg Vial IVP 40 mg Q6HR MEGHAN Administration Mometasone Furoate/Formoterol Fumar 2 puff 08/03/20 18:30 08/11/20 07:34 Mometasone 200 Mcg/Formoterol 5 Mcg 120 Puff Inhaler INH 2 puff BID-RT MEGHAN Administration Morphine Sulfate 2 mg 08/07/20 06:45 08/08/20 01:10 Morphine 2 Mg/Ml Vial SLOW IVP 2 mg Q1H PRN Administration Breakthrough Pain/Agitation Pantoprazole Sodium 40 mg 08/10/20 09:00 08/10/20 20:25 Pantoprazole 40 Mg Vial IVP 40 mg Q12HR MEGHAN Administration Propofol 1,000 mg 07/28/20 06:15 08/11/20 06:38 Propofol 1,000 Mg/100 Ml Vial IV 08/27/20 06:15 1,000 mg INF PRN Administration TO ACHIEVE GOAL RASS Protocol Rocuronium [place] 100 mg 08/07/20 21:28 08/10/20 20:44 Rocuronium [place] 50 Mg/5 Ml Vial IVP 100 mg Q1H PRN Administration PARALIZATION Sertraline HCl 100 mg 07/26/20 21:00 08/10/20 22:31 Sertraline Hcl 100 Mg Tab PO Not Given HS MEGHAN Sodium Chloride 10 ml 07/27/20 09:00 08/10/20 20:26 Flush - Normal Saline 10 Ml Syringe IVF 10 ml Q12HR MEGHAN Administration Sodium Chloride 10 ml 07/27/20 07:15 07/28/20 01:44 Flush - Normal Saline 10 Ml Syringe IVF 10 ml PRN PRN Administration Saline Flush - Exam Eye: PERRL, anicteric sclera Heart: RRR, no murmur, no gallops, no rubs, normal peripheral pulses Respiratory: rales Gastrointestinal: soft, non-tender, non-distended, normal bowel sounds, no palpable masses, no hepatomegaly Extremities: 2+ LE edema (3+ edema in both upper and lower extremities) Hosp A/P (1) Acute respiratory failure with hypoxia Code(s): J96.01 - ACUTE RESPIRATORY FAILURE WITH HYPOXIA Status: Acute (2) Pneumonia due to COVID-19 virus Code(s): U07.1 - COVID-19; J12.89 - OTHER VIRAL PNEUMONIA Status: Acute (3) Diastolic dysfunction Code(s): I51.9 - HEART DISEASE, UNSPECIFIED Status: Chronic (4) Hypertension Code(s): I10 - ESSENTIAL (PRIMARY) HYPERTENSION Status: Chronic Qualifiers: Hypertension type: essential hypertension Qualified Code(s): I10 - Essential (primary) hypertension (5) ILD (interstitial lung disease) Code(s): J84.9 - INTERSTITIAL PULMONARY DISEASE, UNSPECIFIED Status: Chronic (6) Obesity (BMI 30.0-34.9) Code(s): E66.9 - OBESITY, UNSPECIFIED Status: Chronic (7) Acute kidney injury Code(s): N17.9 - ACUTE KIDNEY FAILURE, UNSPECIFIED Status: Acute - Plan * COVID pneumonia with respiratory failure- she continues to require mechanical ventilation * GI- bleed- continue Protonix, and transfuse to keep Hemoglobin above 7 * EITAN- her renal function is worsening- she is now requiring dialysis. Surgery has been consulted, and a dialysis catheter has been placed * DM- blood glucose is stable * Chronic diastolic heart failure-compensated * Prognosis is guarded * Discussed her medical condition with her . He understands her condition.
[2020-08-11] MEDS ORDERED: Heparin 10,000 UNITS/ 10 ML VIAL ONE (09:28)
[2020-08-11] MEDS: Pantoprazole 40 MG VIAL IVP SCH ×2 (09:34→20:43)
[2020-08-11] MEDS: Losartan/Hydrochlorothiazide 100 mg/25 mg Tablet PO SCH (09:35)
[2020-08-11] MEDS: Amlodipine 5 MG TAB PO SCH (09:35)
[2020-08-11] MEDS: hydrALAZINE 25 MG TAB PO SCH ×3 (09:35→20:42)
--- NOTE | 2020-08-11 10:48 | OP ---
DATE OF PROCEDURE: 08/11/2020 PREOPERATIVE DIAGNOSIS: Acute renal failure. POSTOPERATIVE DIAGNOSIS: Acute renal failure. PROCEDURE PERFORMED: Right femoral temporary dialysis catheter placement. ANESTHESIA: Local. ESTIMATED BLOOD LOSS: Minimal. COMPLICATIONS: None. SPECIMEN: None. DESCRIPTION OF PROCEDURE: The right groin was shaved, prepped, and draped in a sterile fashion. Local anesthetic was infiltrated over the right femoral vein. Femoral vein was cannulated using a Seldinger needle. Wire was passed under no tension. Small suyapa was made at the wire entrance site. The wire was used as a guide to dilate the right femoral vein. The Trialysis catheter was threaded to its full extent over the wire. The wire was removed. All ports were flushed and tj out blood without difficulties, flushed with a saline flush as this was the third lumen as well. The catheter was sutured to the skin of the groin using the nylon suture. Sterile dressings were placed. The patient tolerated procedure well. She will undergo dialysis urgently. Job ID: [id number]
[2020-08-11] MEDS ORDERED: Albumin 25% 25 GM/100 ML BOT IVPB ONE (11:15)
[2020-08-11] MEDS: Rocuronium Bromide 50 MG/5 ML VIAL IVP PRN (12:53)
[2020-08-11 13:28] LABS: Hep B Core Total Ab Non-Reactive (NonReactive); Hep B Core Total Index 0.34 S/CO (0-0.79)
[2020-08-11] MEDS: Norepinephrine 8 MG/0.9% NS 250 ML IVPB SCH (14:41)
[2020-08-11 14:59] LABS: HBSAB Concentration Less than 8.00 mIU/mL; Hep B Surf AB Non-Reactive (NonReactive); Hep C IgG Ab Non-Reactive (NonReactive)
[2020-08-11 15:00] LABS: HBSAg Index 0.54 S/CO (0-0.99); Hep B Surf Ag Non-Reactive S/CO (NonReactive)
--- NOTE | 2020-08-11 18:52 | PRG ---
DATE OF SERVICE: 08/11/2020 SUBJECTIVE: Lorri Hogue remains mechanically ventilated. Intake and output are positive 716. She was positive 451 yesterday, 429 the day before, 2 L the day before that. Dialysis access has been placed today. She is started on dialysis. Hopefully, if we can get some volume off her with daily dialysis, we can buy her some time. There is a tiny chance she can survive this, but it is small. OBJECTIVE: LUNGS: Clear. HEART: Regular rhythm. ABDOMEN: Soft. LABORATORY DATA: White count 6.5, hemoglobin 7.4, platelets 154. Electrolytes; potassium is 5.7 this morning, BUN 121, creatinine 3.5. IMPRESSION: COVID pneumonia with renal failure. PLAN: Dialysis, continue ventilatory support. I met with her and answered all his questions. Critical care time 30 min. Job ID: [id number] [email or web address]
--- NOTE | 2020-08-11 19:03 | CON ---
DATE OF CONSULTATION: REASON FOR CONSULTATION: Acute kidney injury and fluid overload. REASON FOR ADMISSION: Shortness of breath and COVID pneumonia. HISTORY OF PRESENT ILLNESS: A 65-year-old female with history of end-stage lung disease and recent COVID pneumonia was readmitted to the hospital with shortness of breath on 07/25/2020, who has been evaluated here. She remains in the ICU and intubated. She got fluid overload with renal failure last few days and Nephrology is currently consulted. The patient is on maximum pressors, maximum dose of Levophed and blood pressure is margin, but she remains fluid overloaded. Family wants to have a courtesy measures for fluid removal. Nephrology is consulted for possible dialysis and Dr. Butler placed a dialysis catheter this morning. PAST MEDICAL HISTORY: Positive for COVID pneumonia, interstitial lung disease, West Nile virus, hyperlipidemia, and hypertension. PAST SURGICAL HISTORY: Right total knee replacement, hysterectomy, and lung biopsy. HOME MEDICATIONS: Reviewed. ALLERGIES: TO LEVOFLOXACIN AND NITROFURANTOIN. SOCIAL HISTORY: No smoking, alcohol, or drug abuse. Former smoker. FAMILY HISTORY: No history of kidney disease. REVIEW OF SYSTEMS: Could not be obtained as she is intubated. OBJECTIVE: GENERAL: This is a well-built female, intubated on COVID isolation. VITAL SIGNS: Temperature 96.9, pulse 122, respiratory rate 18, and blood pressure 82/55. HEENT: Intubated. LABORATORY DATA: Potassium is 5.7, BUN is 121, and creatinine is 3.5. ASSESSMENT AND PLAN: 1. Acute kidney injury on chronic kidney disease stage 3 with worsening labs and fluid overload. Plan is to have dialysis. Family is agreeable. We will attempt to have dialysis even though fluid removal will be hard, we will use albumin. 2. Hyponatremia. 3. Hyperkalemia. 4. Acidosis. 5. Azotemia. 6. Acute hypoxic respiratory failure. 7. Fluid overload. 8. Hypoalbuminemia, moderate. 9. Anemia of chronic disease. Plan is to have dialysis as tolerated and we will update family. Thank you. Appreciate the consult and follow the case along with you. Prognosis remains guarded. Job ID: [id number]
[2020-08-12] MEDS: methylPREDNISolone Sod Succ 40 MG VIAL IVP SCH ×4 (00:01→17:59)
[2020-08-12] MEDS: Propofol 1,000 MG/100 ML VIAL IV PRN ×5 (01:04→20:56)
[2020-08-12] MEDS: fentaNYL Citrate/PF 2,000 MCG in Sodium Chloride 0.9% 60 ML IV SCH ×2 (01:43→21:10)
[2020-08-12] MEDS: Norepinephrine 8 MG/0.9% NS 250 ML IVPB SCH ×4 (02:11→17:59)
[2020-08-12 05:40] LABS: Hemoglobin 6.1 g/dL (12.0-16.0); Mean Corpuscular HGB CONC 36.5 g/dL (32.0-36.0); Mean Corpuscular Hemoglobin 33.3 pg (27.0-31.0); Mean Corpuscular Volume 91.1 fL (78.0-98.0); Platelet Count 242 thou/uL (130-400); RBC Distribution Width 11.8 % (11.5-14.5); Red Blood Cell (RBC) Count 1.82 mill/uL (4.20-5.40); White Blood Cell (WBC) Count 19.1 thou/uL (4.8-10.8)
[2020-08-12 05:42] LABS: Anion Gap 22 mmol/L (10-20); BUN (Urea Nitrogen) 108 mg/dL (9.8-20.1); Calc. Creatinine Clearance 25 mL/min (70-130); Calcium 7.7 mg/dL (7.8-10.44); Carbon Dioxide 28 mmol/L (23-31); Chloride 88 mmol/L (98-107); Estimated GFR-MDRD 13; Glucose 203 mg/dL (80-115); Potassium 6.1 mmol/L (3.5-5.1); Sodium 132 mmol/L (136-145)
[2020-08-12] MEDS: Albuterol Sulfate 2.5 mg/3 ml Neb NEB SCH ×3 (07:05→18:44)
[2020-08-12] MEDS: Mometasone 200 MCG/Formoterol 5 MCG 120 PUFF INHALER INH SCH ×2 (07:05→18:45)
[2020-08-12 07:36] LABS: Actual Bicarbonate (HCO3a) 32.2 mEq/L (22-28); Base Excess (BEa) 0.6 mEq/L (-2.0 to +3.0); Calcium, Ionized (arterial) 0.99 mmol/L (1.12-1.30); Carboxyhemoglobin (COHb) 0.8 gm% (0.0-3.0); Potassium - ABG Lab 6.17 mmol/L (3.70-5.30)
[2020-08-12 07:37] LABS: CO2 Tension 137.9 mmHg (35.0-45.0); O2 Tension (PaO2), arterial 57.4 mmHg (> 80.0); Puncture Site RRA; pH, Arterial 6.99 (7.35-7.45)
[2020-08-12 07:38] LABS: ALV-art Gradient 483.225 mmHg (0-20)
[2020-08-12] MEDS ORDERED: Sodium Bicarb 50 MEQ/50 ML Abboject 8.4% SYRINGE ONE (08:10)
[2020-08-12] MEDS ORDERED: Sodium Bicarb 50 MEQ/50 ML Abboject 8.4% SYRINGE IVP SCH (08:15)
[2020-08-12] MEDS: Pantoprazole 40 MG VIAL IVP SCH ×2 (08:41→20:55)
[2020-08-12] MEDS: Losartan/Hydrochlorothiazide 100 mg/25 mg Tablet PO SCH (08:48)
--- NOTE | 2020-08-12 09:12 | PDOC.HOSPP ---
- Subjective Encounter Date: 08/12/20 Encounter Time: 09:10 Subjective: Ms. Hogue was seen today in follow-up of COVID pneumonia and respiratory failure. She has not had much change overnight. - Objective Vital Signs & Weight: Vital Signs (12 hours) Temp Pulse Resp 08/12/20 07:05 94 08/12/20 06:00 35 H 08/12/20 04:00 97.2 F L 35 H 08/12/20 02:00 35 H 08/12/20 00:00 97.7 F 35 H 08/11/20 22:00 35 H Weight Admit Weight 214 lb Weight 214 lb Most Recent Monitor Data Heart Rate from ECG 93 NIBP 108/32 NIBP BP-Mean 57 Respiration from ECG 35 SpO2 82 I&O: 08/11/20 08/12/20 08/13/20 06:59 06:59 06:59 Intake Total 1863.4 1392 Output Total 1147 1230 Balance 716.4 162 Result Diagrams: 08/12/20 05:15 08/12/20 05:15 Hospitalist ROS - Medication Medications: Active Medications Generic Name Dose Route Start Last Admin Trade Name Freq PRN Reason Stop Dose Admin Acetaminophen 650 mg 07/25/20 23:42 07/26/20 21:14 Acetaminophen 325 Mg Tab PO 650 mg Q4H PRN Administration Headache/Fever/Mild Pain (1-3) Albuterol Sulfate 2.5 mg 08/03/20 19:00 08/12/20 07:05 Albuterol Sulfate 2.5 Mg/3 Ml Neb NEB 2.5 mg [id number] MEGHAN Administration HCTZ/Losartan Potassium 1 tab 07/28/20 09:00 08/12/20 08:48 Losartan/Hydrochlorothiazide 100 Mg/25 Mg Tablet PO Not Given DAILY MEGHAN Fentanyl Citrate 2,000 mcg/ 100 mls @ 0 mls/hr 08/07/20 07:00 08/12/20 01:43 Sodium Chloride IV 100 mls INF MEGHAN Administration Protocol Per Protocol Norepinephrine Bitartrate 250 mls @ 0 mls/hr 08/11/20 08:15 08/12/20 07:59 Levophed IVPB 250 mls INF MEGHAN Administration Protocol Titrate Lorazepam 2 mg 08/07/20 06:45 08/10/20 20:48 Lorazepam 2 Mg/Ml Vial SLOW IVP 2 mg Q1H PRN Administration Breakthrough agitation Methylprednisolone Sodium Succinate 40 mg 07/28/20 12:00 08/12/20 08:48 Methylprednisolone Sod Succ 40 Mg Vial IVP Not Given Q6HR MEGHAN Mometasone Furoate/Formoterol Fumar 2 puff 08/03/20 18:30 08/12/20 07:05 Mometasone 200 Mcg/Formoterol 5 Mcg 120 Puff Inhaler INH 2 puff BID-RT MEGHAN Administration Morphine Sulfate 2 mg 08/07/20 06:45 08/08/20 01:10 Morphine 2 Mg/Ml Vial SLOW IVP 2 mg Q1H PRN Administration Breakthrough Pain/Agitation Pantoprazole Sodium 40 mg 08/10/20 09:00 08/12/20 08:41 Pantoprazole 40 Mg Vial IVP 40 mg Q12HR MEGHAN Administration Propofol 1,000 mg 07/28/20 06:15 08/12/20 08:41 Propofol 1,000 Mg/100 Ml Vial IV 08/27/20 06:15 1,000 mg INF PRN Administration TO ACHIEVE GOAL RASS Protocol Rocuronium [place] 100 mg 08/07/20 21:28 08/11/20 12:53 Rocuronium [place] 50 Mg/5 Ml Vial IVP 100 mg Q1H PRN Administration PARALIZATION Sodium Bicarbonate 150 meq 08/12/20 08:15 08/12/20 08:48 Sodium Bicarb 50 Meq/50 Ml Abboject 8.4% Syringe IVP 08/12/20 10:00 Not Given NOW MEGHAN Sodium Chloride 10 ml 07/27/20 09:00 08/12/20 08:49 Flush - Normal Saline 10 Ml Syringe IVF 10 ml Q12HR MEGHAN Administration Sodium Chloride 10 ml 07/27/20 07:15 07/28/20 01:44 Flush - Normal Saline 10 Ml Syringe IVF 10 ml PRN PRN Administration Saline Flush - Exam Eye: PERRL, anicteric sclera Heart: RRR, no murmur, no rubs, normal peripheral pulses Respiratory: rales, rhonchi Gastrointestinal: soft, non-tender, non-distended, normal bowel sounds, no palpable masses, no hepatomegaly Extremities: 2+ LE edema (+ generalized edema through out) Hosp A/P (1) Acute anemia Code(s): D64.9 - ANEMIA, UNSPECIFIED Status: Acute (2) Acute respiratory failure with hypoxia Code(s): J96.01 - ACUTE RESPIRATORY FAILURE WITH HYPOXIA Status: Acute (3) Pneumonia due to COVID-19 virus Code(s): U07.1 - COVID-19; J12.89 - OTHER VIRAL PNEUMONIA Status: Acute (4) Diastolic dysfunction Code(s): I51.9 - HEART DISEASE, UNSPECIFIED Status: Chronic (5) Hypertension Code(s): I10 - ESSENTIAL (PRIMARY) HYPERTENSION Status: Chronic Qualifiers: Hypertension type: essential hypertension Qualified Code(s): I10 - Essential (primary) hypertension (6) ILD (interstitial lung disease) Code(s): J84.9 - INTERSTITIAL PULMONARY DISEASE, UNSPECIFIED Status: Chronic (7) Obesity (BMI 30.0-34.9) Code(s): E66.9 - OBESITY, UNSPECIFIED Status: Chronic (8) Acute kidney injury Code(s): N17.9 - ACUTE KIDNEY FAILURE, UNSPECIFIED Status: Acute - Plan * COVID pneumonia with respiratory failure- she continues to require mechanical ventilation * GI- bleed with acute blood loss anemia- continue Protonix, and her Hemoglobin as dropped to 6.1- will transfuse a unit * EITAN- she was dialyzed yesterday- will possibly undergo dialysis again today * She is severely acidotic- 3 amps of Bicarb have been ordered * Hyperkalemia- She may have dialysis, otherwise will treat with Kayexalate * DM- blood glucose is stable * Chronic diastolic heart failure-compensated * Prognosis is guarded
[2020-08-12] MEDS ORDERED: Heparin 10,000 UNITS/ 10 ML VIAL ONE (10:33)
--- NOTE | 2020-08-12 11:19 | PRG ---
DATE OF SERVICE: 08/12/2020 SUBJECTIVE: The patient was seen and examined at bedside in the ICU. She remains intubated. No family members available. OBJECTIVE: GENERAL: This is a well-built female, intubated. VITAL SIGNS: Temperature 97.2, pulse 92, respiratory rate 34, blood pressure 108/32. HEENT: Intubated. CV: S1 and S2 heard. RESPIRATORY: Coarse. GI: Obese. MUSCULOSKELETAL: 1+ edema. NEUROLOGIC: Intubated. LABORATORY DATA: Potassium 6.1, BUN is 108, creatinine is 3.4. PH is 6.9, pCO2 is 137. ASSESSMENT AND PLAN: 1. Acute kidney injury, dialysis dependent. Dialysis nurse notified about the need for dialysis this morning. Due to shortage of staff, they were not able to get started soon. 2. Hyponatremia. 3. Severe acidosis. 4. Hyperkalemia. 5. Acute hypoxic respiratory failure. 6. Fluid overload. Plan is to have dialysis, but prognosis remains poor. Dialysis orders given, and we will follow. Job ID: [id number]
--- NOTE | 2020-08-12 17:33 | PRG ---
DATE OF SERVICE: 08/12/2020 Ms. Hogue continues to do poorly. Her lung compliance is horrible. Her pCO2 this morning was 137 with a pH of 6.9. Three amps of bicarb bought her some time. Potassium is 6.1, BUN 108, creatinine is 3.4. She is to be dialyzed today. White count 19, hemoglobin 6.1, platelets 242. 2 units of blood were ordered. Really cannot see how she can survive this. Critical care time 30 minutes. Job ID: [id number]
[2020-08-12] MEDS: Rocuronium Bromide 50 MG/5 ML VIAL IVP PRN (20:55)
[2020-08-12] MEDS: Lorazepam 2 MG/ML VIAL SLOW IVP PRN (20:56)
[2020-08-13] MEDS: Propofol 1,000 MG/100 ML VIAL IV PRN ×8 (00:21→21:48)
[2020-08-13] MEDS: Norepinephrine 8 MG/0.9% NS 250 ML IVPB SCH ×2 (00:21→13:05)
[2020-08-13] MEDS: methylPREDNISolone Sod Succ 40 MG VIAL IVP SCH ×5 (00:21→23:47)
[2020-08-13] MEDS: Albuterol Sulfate 2.5 mg/3 ml Neb NEB SCH ×4 (00:22→18:32)
[2020-08-13 05:35] LABS: Band 24 % (5-11); Basophilic Stippling SLIGHT = 1-2 cells (100X) (None Seen); Hemoglobin 6.3 g/dL (12.0-16.0); Lymphocytes 6 % (21-51); MDiff Complete? YES; Mean Corpuscular HGB CONC 37.8 g/dL (32.0-36.0); Mean Corpuscular Hemoglobin 33.7 pg (27.0-31.0); Mean Corpuscular Volume 89.4 fL (78.0-98.0); Mean Platelet Volume 8.1 fL (7.4-10.4); Metamyelocyte 1 % (0-0); Monocytes 5 % (0-10); Myelocyte 2 % (0-0); Neutrophil 62 % (42-75); Nucleated RBC 1 % (0); Platelet Count 128 thou/uL (130-400); Polychromasia SLIGHT = 2-3 cells (100X) (0-2/hpf); RBC Distribution Width 11.6 % (11.5-14.5); Red Blood Cell (RBC) Count 1.87 mill/uL (4.20-5.40); White Blood Cell (WBC) Count 14.4 thou/uL (4.8-10.8)
[2020-08-13 05:43] LABS: Anion Gap 20 mmol/L (10-20); BUN (Urea Nitrogen) 62 mg/dL (9.8-20.1); Calc. Creatinine Clearance 38 mL/min (70-130); Calcium 7.1 mg/dL (7.8-10.44); Carbon Dioxide 26 mmol/L (23-31); Chloride 94 mmol/L (98-107); Estimated GFR-MDRD 22; Glucose 118 mg/dL (80-115); Potassium 4.3 mmol/L (3.5-5.1); Sodium 136 mmol/L (136-145)
[2020-08-13 07:07] LABS: Actual Bicarbonate (HCO3a) 29.4 mEq/L (22-28); Base Excess (BEa) 1.7 mEq/L (-2.0 to +3.0); Calcium, Ionized (arterial) 0.98 mmol/L (1.12-1.30); Potassium - ABG Lab 4.12 mmol/L (3.70-5.30)
[2020-08-13 07:08] LABS: CO2 Tension 71.4 mmHg (35.0-45.0); O2 Tension (PaO2), arterial 59.8 mmHg (> 80.0); Puncture Site LRA; pH, Arterial 7.23 (7.35-7.45)
[2020-08-13] MEDS: Mometasone 200 MCG/Formoterol 5 MCG 120 PUFF INHALER INH SCH ×2 (07:17→18:33)
[2020-08-13] MEDS: Losartan/Hydrochlorothiazide 100 mg/25 mg Tablet PO SCH (07:53)
[2020-08-13] MEDS: Pantoprazole 40 MG VIAL IVP SCH (07:53)
--- NOTE | 2020-08-13 11:09 | PRG ---
DATE OF SERVICE: 08/13/2020 SUBJECTIVE: The patient is seen and examined in ICU. She remains intubated. was at the bedside and updated about the condition. OBJECTIVE: GENERAL: Elderly female, intubated, seen in ICU. VITAL SIGNS: Temperature 96, pulse 82, , blood pressure 124/50. HEENT: Intubated. CV: S1 and S2 heard. RESPIRATORY: Coarse. GI: Abdomen is soft. MUSCULOSKELETAL: 1+ edema. DERMATOLOGIC: No skin rash. NEUROLOGIC: Intubated. LABORATORY DATA: Hemoglobin is 6.3, white count is 14.4. Potassium 4.3, BUN is 62, and creatinine is 2.28. ASSESSMENT AND PLAN: 1. Acute kidney injury on chronic kidney disease, stage 2, dialysis dependent, had dialysis yesterday, tolerated well, had good clearance. The patient remains fluid overloaded, so plan is to have a UF Rosen treatment today with plan to remove 3 L if tolerated. The patient still remains high risk for complications and family is aware. at the bedside being updated. 2. Hyponatremia, better with fluid removal. 3. Hyperkalemia, better. 4. Acidosis, better. Her pH today was 7.2 with respiratory acidosis. 5. Acute hypoxic respiratory failure. 6. Fluid overload, attempting to remove fluid. 7. COVID-19 infection. 8. Still remains high risk for complications. Plan is to have dialysis. The patient is seen during dialysis and also will give 1 unit of PRBC with dialysis. 9. Anemia. Transfuse 1 unit with dialysis. 10. We will continue close monitoring and dialysis as tolerated. Family updated. Job ID: [id number]
--- NOTE | 2020-08-13 11:28 | PDOC.HOSPP ---
- Subjective Encounter Date: 08/13/20 Encounter Time: 11:27 Subjective: Mr. Hogue was seen today in follow-up of COVID pneumonia. She has not had much change overnight. She appears to have strained respirations even on high vet settings. - Objective Vital Signs & Weight: Vital Signs (12 hours) Temp Pulse Resp BP Pulse Ox 08/13/20 10:28 82 131/56 L 08/13/20 10:00 40 H 08/13/20 08:00 43 H 89 L 08/13/20 07:00 98.6 F 08/13/20 06:55 95 114/63 08/13/20 06:54 99 38 H 93 L 08/13/20 06:00 35 H 08/13/20 04:00 98.0 F 35 H 08/13/20 02:00 25 H 08/13/20 00:22 92 35 H 90 L 08/13/20 00:00 97.8 F 35 H Weight Admit Weight 214 lb Weight 214 lb Most Recent Monitor Data Heart Rate from ECG 87 NIBP 90/48 NIBP BP-Mean 62 Respiration from ECG 35 SpO2 89 I&O: 08/12/20 08/13/20 08/14/20 06:59 06:59 06:59 Intake Total 1392 2086 406 Output Total 1230 565 75 Balance 162 1521 331 Result Diagrams: 08/13/20 04:55 08/13/20 04:55 Hospitalist ROS - Medication Medications: Active Medications Generic Name Dose Route Start Last Admin Trade Name Freq PRN Reason Stop Dose Admin Acetaminophen 650 mg 07/25/20 23:42 07/26/20 21:14 Acetaminophen 325 Mg Tab PO 650 mg Q4H PRN Administration Headache/Fever/Mild Pain (1-3) Albuterol Sulfate 2.5 mg 08/03/20 19:00 08/13/20 06:54 Albuterol Sulfate 2.5 Mg/3 Ml Neb NEB 2.5 mg [id number] MEGHAN Administration HCTZ/Losartan Potassium 1 tab 07/28/20 09:00 08/13/20 07:53 Losartan/Hydrochlorothiazide 100 Mg/25 Mg Tablet PO Not Given DAILY MEGHNA Fentanyl Citrate 2,000 mcg/ 100 mls @ 0 mls/hr 08/07/20 07:00 08/12/20 21:10 Sodium Chloride IV 100 mls INF MEGHAN Administration Protocol Per Protocol Norepinephrine Bitartrate 250 mls @ 0 mls/hr 08/11/20 08:15 08/13/20 00:21 Levophed IVPB 250 mls INF MEGHAN Administration Protocol Titrate Lorazepam 2 mg 08/07/20 06:45 08/12/20 20:56 Lorazepam 2 Mg/Ml Vial SLOW IVP 2 mg Q1H PRN Administration Breakthrough agitation Methylprednisolone Sodium Succinate 40 mg 07/28/20 12:00 08/13/20 05:53 Methylprednisolone Sod Succ 40 Mg Vial IVP 40 mg Q6HR MEGHAN Administration Mometasone Furoate/Formoterol Fumar 2 puff 08/03/20 18:30 08/13/20 07:17 Mometasone 200 Mcg/Formoterol 5 Mcg 120 Puff Inhaler INH 2 puff BID-RT MEGHAN Administration Morphine Sulfate 2 mg 08/07/20 06:45 08/08/20 01:10 Morphine 2 Mg/Ml Vial SLOW IVP 2 mg Q1H PRN Administration Breakthrough Pain/Agitation Propofol 1,000 mg 07/28/20 06:15 08/13/20 10:38 Propofol 1,000 Mg/100 Ml Vial IV 08/27/20 06:15 1,000 mg INF PRN Administration TO ACHIEVE GOAL RASS Protocol Rocuronium [place] 100 mg 08/07/20 21:28 08/12/20 20:55 Rocuronium [place] 50 Mg/5 Ml Vial IVP 100 mg Q1H PRN Administration PARALIZATION Sodium Chloride 10 ml 07/27/20 09:00 08/13/20 07:53 Flush - Normal Saline 10 Ml Syringe IVF 10 ml Q12HR MEGHAN Administration Sodium Chloride 10 ml 07/27/20 07:15 07/28/20 01:44 Flush - Normal Saline 10 Ml Syringe IVF 10 ml PRN PRN Administration Saline Flush - Exam Eye: PERRL, anicteric sclera Heart: RRR, no murmur, no gallops, no rubs, normal peripheral pulses Respiratory: rales Gastrointestinal: soft, non-tender, non-distended, normal bowel sounds, no palpable masses, no hepatomegaly Extremities: 2+ LE edema Hosp A/P (1) Acute anemia Code(s): D64.9 - ANEMIA, UNSPECIFIED Status: Acute (2) Acute respiratory failure with hypoxia Code(s): J96.01 - ACUTE RESPIRATORY FAILURE WITH HYPOXIA Status: Acute (3) Pneumonia due to COVID-19 virus Code(s): U07.1 - COVID-19; J12.89 - OTHER VIRAL PNEUMONIA Status: Acute (4) Diastolic dysfunction Code(s): I51.9 - HEART DISEASE, UNSPECIFIED Status: Chronic (5) Hypertension Code(s): I10 - ESSENTIAL (PRIMARY) HYPERTENSION Status: Chronic Qualifiers: Hypertension type: essential hypertension Qualified Code(s): I10 - Essential (primary) hypertension (6) ILD (interstitial lung disease) Code(s): J84.9 - INTERSTITIAL PULMONARY DISEASE, UNSPECIFIED Status: Chronic (7) Obesity (BMI 30.0-34.9) Code(s): E66.9 - OBESITY, UNSPECIFIED Status: Chronic (8) Acute kidney injury Code(s): N17.9 - ACUTE KIDNEY FAILURE, UNSPECIFIED Status: Acute - Plan * COVID pneumonia with respiratory failure- she continues to require mechanical ventilation * GI- bleed with acute blood loss anemia- will change Protonix to a Protonix drip, and continue to transfuse as needed * EITAN- she continues to require dialysis * Hyperkalemia- resolved with dialysis * DM- blood glucose is stable * Chronic diastolic heart failure * Will check a DIC panel * Prognosis is guarded
[2020-08-13 12:42] LABS: FSP-Qualitative ABNORMAL (Normal)
[2020-08-13 12:43] LABS: Fibrinogen 183 mg/dL (253-463)
[2020-08-13 12:44] LABS: INR-International Normal Ratio 0.9; PTT 27.8 sec (22.9-36.1); Prothrombin Time 12.8 sec (12.0-14.7)
[2020-08-13 12:48] LABS: FSP-Semiquantitative >=20 & <40 mcg/mL (Less than 5)
[2020-08-13 12:49] LABS: Platelet Count 203 thou/uL (130-400)
[2020-08-13 12:58] LABS: D-Dimer Test 9.77 *mcg/mL (0.27-0.43)
[2020-08-13] MEDS: Pantoprazole 80 MG, Admixture Fee 1 EACH in Sodium Chloride 0.9% 100 ML IVPB SCH ×2 (13:05→21:48)
[2020-08-13] MEDS ORDERED: Heparin 10,000 UNITS/ 10 ML VIAL ONE (13:41)
[2020-08-13] MEDS: fentaNYL Citrate/PF 2,000 MCG in Sodium Chloride 0.9% 60 ML IV SCH (15:55)
--- NOTE | 2020-08-13 19:59 | PRG ---
DATE OF SERVICE: 08/13/2020 SUBJECTIVE: Has a heart rate in the 90s and adequate blood pressure. Oximetry surprisingly is up in the 90s today. She had dialysis again today. OBJECTIVE: LUNGS: Unchanged. ABDOMEN: Unchanged. Her tidal volume still remains small and her lung compliance is very poor. LABORATORY DATA: White count 14.4, hemoglobin 6.3, platelets 128. Electrolytes are unremarkable. Creatinine 2.28. IMPRESSION: COVID pneumonia. Given her poor compliance and risk of a pneumothorax, we will go back to doing more frequent chest x-rays. Her prognosis is still quite poor. She seems to continue to hang in there in spite of very difficult to ventilate lung compliance. Here today, her pH is better at 7.23 with CO2 of 71, PO2 of 59. She is still on bilevel ventilation at a rate of 35, peak inspiratory pressure of 42, respiratory 15 and a low PEEP of 16 are in the in 300s, sometimes less. Continue supportive care, daily dialysis maybe beneficial. CRITICAL CARE TIME: 30 minutes. Job ID: [id number]
[2020-08-13] MEDS: Lorazepam 2 MG/ML VIAL SLOW IVP PRN (23:47)
[2020-08-14] MEDS: Albuterol Sulfate 2.5 mg/3 ml Neb NEB SCH ×4 (00:17→19:06)
[2020-08-14] MEDS: Propofol 1,000 MG/100 ML VIAL IV PRN ×8 (00:57→23:43)
[2020-08-14] MEDS: Lorazepam 2 MG/ML VIAL SLOW IVP PRN ×4 (03:53→22:37)
[2020-08-14 04:50] LABS: #Eosinphils 0.1 thou/uL (0.0-0.7); #Lymphocytes 1.5 thou/uL (1.20-3.40); #Monocytes 0.7 thou/uL (0.11-0.59); %Basophils 0.2 % (0.0-1.0); %Eosinophils 0.5 % (0.0-10.0); %Lymphocytes 8.2 % (21.0-51.0); %Monocytes 3.9 % (0.0-10.0); %Neutrophils 87.2 % (42.0-75.0); Hemoglobin 7.2 g/dL (12.0-16.0); Mean Corpuscular HGB CONC 39.2 g/dL (32.0-36.0); Mean Corpuscular Hemoglobin 34.4 pg (27.0-31.0); Mean Corpuscular Volume 87.8 fL (78.0-98.0); Mean Platelet Volume 8.3 fL (7.4-10.4); Platelet Count 108 thou/uL (130-400); RBC Distribution Width 11.8 % (11.5-14.5); White Blood Cell (WBC) Count 18.4 thou/uL (4.8-10.8)
[2020-08-14 05:02] LABS: Anion Gap 26 mmol/L (10-20); BUN (Urea Nitrogen) 79 mg/dL (9.8-20.1); Calc. Creatinine Clearance 28 mL/min (70-130); Calcium 7.1 mg/dL (7.8-10.44); Carbon Dioxide 20 mmol/L (23-31); Chloride 93 mmol/L (98-107); Estimated GFR-MDRD 15; Glucose 91 mg/dL (80-115); Potassium 4.7 mmol/L (3.5-5.1); Sodium 134 mmol/L (136-145)
[2020-08-14] MEDS: methylPREDNISolone Sod Succ 40 MG VIAL IVP SCH ×2 (06:18→20:02)
[2020-08-14] MEDS: Mometasone 200 MCG/Formoterol 5 MCG 120 PUFF INHALER INH SCH ×2 (07:13→19:07)
[2020-08-14] MEDS: Pantoprazole 80 MG, Admixture Fee 1 EACH in Sodium Chloride 0.9% 100 ML IVPB SCH ×2 (08:12→17:42)
[2020-08-14 08:18] LABS: Actual Bicarbonate (HCO3a) 25.2 mEq/L (22-28); Base Excess (BEa) -1.4 mEq/L (-2.0 to +3.0); CO2 Tension 55.5 mmHg (35.0-45.0); O2 Tension (PaO2), arterial 81.9 mmHg (> 80.0); pH, Arterial 7.28 (7.35-7.45)
[2020-08-14 08:19] LABS: Carboxyhemoglobin (COHb) 2.3 gm% (0.0-3.0); Hemoglobin (Hb) 5.6 g/dL (12.0-16.0); Potassium - ABG Lab 4.37 mmol/L (3.70-5.30)
[2020-08-14 08:20] LABS: Analyzer IN Cardio OR; Calcium, Ionized (arterial) 0.96 mmol/L (1.12-1.30); Puncture Site LRA
[2020-08-14 08:21] LABS: ALV-art Gradient 561.725 mmHg (0-20)
--- NOTE | 2020-08-14 09:36 | PDOC.HOSPP ---
- Subjective Encounter Date: 08/14/20 Encounter Time: 09:34 Subjective: Ms. Hogue was seen today in follow-up of respiratory failure due to COVID pneumonia. She is still intubated, and requiring high Fi02. - Objective Vital Signs & Weight: Vital Signs (12 hours) Temp Pulse Resp BP Pulse Ox 08/14/20 08:00 98.7 F 47 H 08/14/20 07:07 78 127/69 08/14/20 07:06 80 40 H 99 08/14/20 06:00 44 H 08/14/20 04:00 98.6 F 37 H 08/14/20 02:00 36 H 08/14/20 00:17 83 35 H 100 08/14/20 00:00 98.5 F 39 H 08/13/20 22:00 43 H Weight Admit Weight 214 lb Weight 214 lb Most Recent Monitor Data Heart Rate from ECG 90 NIBP 132/59 NIBP BP-Mean 83 Respiration from ECG 38 SpO2 89 I&O: 08/13/20 08/14/20 08/15/20 06:59 06:59 06:59 Intake Total 2086 1513.2 60 Output Total 565 530 0 Balance 1521 983.2 60 Result Diagrams: 08/14/20 04:33 08/14/20 04:33 Hospitalist ROS - Medication Medications: Active Medications Generic Name Dose Route Start Last Admin Trade Name Freq PRN Reason Stop Dose Admin Acetaminophen 650 mg 07/25/20 23:42 07/26/20 21:14 Acetaminophen 325 Mg Tab PO 650 mg Q4H PRN Administration Headache/Fever/Mild Pain (1-3) Albuterol Sulfate 2.5 mg 08/03/20 19:00 08/14/20 07:06 Albuterol Sulfate 2.5 Mg/3 Ml Neb NEB 2.5 mg [id number] MEGHAN Administration Fentanyl Citrate 2,000 mcg/ 100 mls @ 0 mls/hr 08/07/20 07:00 08/13/20 15:55 Sodium Chloride IV 100 mls INF MEGHAN Administration Protocol Per Protocol Norepinephrine Bitartrate 250 mls @ 0 mls/hr 08/11/20 08:15 08/13/20 13:05 Levophed IVPB 250 mls INF MEGHAN Administration Protocol Titrate Pantoprazole Sodium 80 mg/ 100 mls @ 10 mls/hr 08/13/20:30 08/14/20 08:12 Miscellaneous Medication 1 IVPB 100 mls each/ Sodium Chloride INF MEGHAN Administration Lorazepam 2 mg 08/07/20 06:45 08/14/20 08:33 Lorazepam 2 Mg/Ml Vial SLOW IVP 2 mg Q1H PRN Administration Breakthrough agitation Mometasone Furoate/Formoterol Fumar 2 puff 08/03/20 18:30 08/14/20 07:13 Mometasone 200 Mcg/Formoterol 5 Mcg 120 Puff Inhaler INH 2 puff BID-RT MEGHAN Administration Morphine Sulfate 2 mg 08/07/20 06:45 08/08/20 01:10 Morphine 2 Mg/Ml Vial SLOW IVP 2 mg Q1H PRN Administration Breakthrough Pain/Agitation Propofol 1,000 mg 07/28/20 06:15 08/14/20 08:40 Propofol 1,000 Mg/100 Ml Vial IV 08/27/20 06:15 1,000 mg INF PRN Administration TO ACHIEVE GOAL RASS Protocol Rocuronium [place] 100 mg 08/07/20 21:28 08/12/20 20:55 Rocuronium [place] 50 Mg/5 Ml Vial IVP 100 mg Q1H PRN Administration PARALIZATION Sodium Chloride 10 ml 07/27/20 09:00 08/13/20 19:59 Flush - Normal Saline 10 Ml Syringe IVF 10 ml Q12HR MEGHAN Administration Sodium Chloride 10 ml 07/27/20 07:15 07/28/20 01:44 Flush - Normal Saline 10 Ml Syringe IVF 10 ml PRN PRN Administration Saline Flush - Exam Eye: PERRL, anicteric sclera Eye - other findings: + mild facial edema Heart: RRR, no murmur, no gallops, no rubs, normal peripheral pulses Respiratory: rales (at both bases) Gastrointestinal: soft, non-tender, non-distended, normal bowel sounds Extremities: 2+ LE edema Extremities - other findings: + upper and lower extremity edema Hosp A/P (1) Acute respiratory failure with hypoxia Code(s): J96.01 - ACUTE RESPIRATORY FAILURE WITH HYPOXIA Status: Acute (2) GI bleed Code(s): K92.2 - GASTROINTESTINAL HEMORRHAGE, UNSPECIFIED Status: Acute (3) Acute anemia Code(s): D64.9 - ANEMIA, UNSPECIFIED Status: Acute (4) Pneumonia due to COVID-19 virus Code(s): U07.1 - COVID-19; J12.89 - OTHER VIRAL PNEUMONIA Status: Acute (5) Diastolic dysfunction Code(s): I51.9 - HEART DISEASE, UNSPECIFIED Status: Chronic (6) Hypertension Code(s): I10 - ESSENTIAL (PRIMARY) HYPERTENSION Status: Chronic Qualifiers: Hypertension type: essential hypertension Qualified Code(s): I10 - Essential (primary) hypertension (7) ILD (interstitial lung disease) Code(s): J84.9 - INTERSTITIAL PULMONARY DISEASE, UNSPECIFIED Status: Chronic (8) Obesity (BMI 30.0-34.9) Code(s): E66.9 - OBESITY, UNSPECIFIED Status: Chronic (9) Acute kidney injury Code(s): N17.9 - ACUTE KIDNEY FAILURE, UNSPECIFIED Status: Acute - Plan * COVID pneumonia with respiratory failure- she continues to require mechanical ventilation * Her FiO2 was able to be lowered some from 100% to 80%. Her oxygen saturations have been in the high 80's to low 90's. * GI- bleed with acute blood loss anemia- Continue Protonix drip. She continues to have some darl colored gastric secretions- will consult GI, not sure if EGD is possible, but will ask their opinion * EITAN- she continues to require dialysis * Hyperkalemia- resolved with dialysis * DM- blood glucose is stable * Chronic diastolic heart failure * Hemodynamics- blood pressure has been stable, but she occasionally will require Levophed with dialysis * DIC- likely from recent COVID infection * FEN- will begin trickle feeds as tolerated * Prognosis is guarded
[2020-08-14] MEDS: Rocuronium Bromide 50 MG/5 ML VIAL IVP PRN ×2 (11:36→18:14)
[2020-08-14] MEDS: fentaNYL Citrate/PF 2,000 MCG in Sodium Chloride 0.9% 60 ML IV SCH (11:38)
--- NOTE | 2020-08-14 14:54 | PRG ---
DATE OF SERVICE: 08/14/2020 SUBJECTIVE: Lorri Hogue had not improved much from a compliance standpoint. Her FiO2 requirements are up and down between 70% and 90%. She was dialyzed again today. OBJECTIVE: Lungs, heart, and abdomen are otherwise unchanged. Her tidal volumes are extremely small for the amount of pressure required to inflate her. LABORATORY DATA: White count is 18.4, hemoglobin 7.2, platelets are 108. BUN 79, creatinine 3.1, and potassium 4.7. She had 2700 mL dialyzed off. Not optimistic, but I am a little hopeful that we will see some kind of miraculous return. Wicho is at the bedside every day. Everyone knows and loves Wicho as he has worked here for years. We will just have to keep going one day at a time. There are no other therapeutic options. Critical care time 30 min. Job ID: [id number] MTDD
[2020-08-14] MEDS ORDERED: Heparin 10,000 UNITS/ 10 ML VIAL ONE (14:55)
[2020-08-14] MEDS: Norepinephrine 8 MG/0.9% NS 250 ML IVPB SCH (18:37)
--- NOTE | 2020-08-14 19:02 | PDOC.BPN ---
- Brief Progress Note Encounter Date: 08/14/20 Encounter Time: 18:[address] Nogueira regarding the care of Ms. Hogue, specifically the GI Bleed. In his medical opinion, Invasive procedures such as EGD or Colonoscopy are not indicated. The bleeding is likely a result of DIC. Correction of the coagulopathy as needed, as well as transfuse as needed would be the optimum and safest course of action.
[2020-08-15] MEDS: Albuterol Sulfate 2.5 mg/3 ml Neb NEB SCH ×4 (02:13→18:37)
[2020-08-15] MEDS: Lorazepam 2 MG/ML VIAL SLOW IVP PRN ×2 (02:49→09:42)
[2020-08-15] MEDS: Pantoprazole 80 MG, Admixture Fee 1 EACH in Sodium Chloride 0.9% 100 ML IVPB SCH ×2 (04:14→15:23)
[2020-08-15] MEDS: Propofol 1,000 MG/100 ML VIAL IV PRN ×6 (04:15→23:44)
[2020-08-15 05:06] LABS: ALT (SGPT) 73 U/L (8-55); AST (SGOT) 68 U/L (5-34); Albumin 2.9 g/dL (3.4-4.8); Alkaline Phosphatase 76 U/L (40-110); Anion Gap 22 mmol/L (10-20); BUN (Urea Nitrogen) 42 mg/dL (9.8-20.1); Bilirubin, Total 0.3 mg/dL (0.2-1.2); Calc. Creatinine Clearance 37 mL/min (70-130); Calcium 7.5 mg/dL (7.8-10.44); Carbon Dioxide 21 mmol/L (23-31); Chloride 96 mmol/L (98-107); Estimated GFR-MDRD 21; Globulin 2.9 g/dL (2.4-3.5); Glucose 90 mg/dL (80-115); Potassium 3.6 mmol/L (3.5-5.1); Protein, Total 5.8 g/dL (6.0-8.3); Sodium 135 mmol/L (136-145)
[2020-08-15] MEDS: fentaNYL Citrate/PF 2,000 MCG in Sodium Chloride 0.9% 60 ML IV SCH ×2 (05:49→23:22)
[2020-08-15 05:51] LABS: Band 17 % (5-11); Basophilic Stippling MODERATE = 3-5 cells (100X) (None Seen); Eosinophils 1 % (0-10); Lymphocytes 5 % (21-51); MDiff Complete? YES; Mean Corpuscular HGB CONC 37.2 g/dL (32.0-36.0); Mean Corpuscular Hemoglobin 32.9 pg (27.0-31.0); Mean Corpuscular Volume 88.6 fL (78.0-98.0); Mean Platelet Volume 8.4 fL (7.4-10.4); Myelocyte 1 % (0-0); Neutrophil 76 % (42-75); Nucleated RBC 1 % (0); Platelet Count 119 thou/uL (130-400); Platelet Morphology Comment Appears Decreased; Polychromasia SLIGHT = 2-3 cells (100X) (0-2/hpf); RBC Distribution Width 12.1 % (11.5-14.5); Red Blood Cell (RBC) Count 2.11 mill/uL (4.20-5.40); White Blood Cell (WBC) Count 18.4 thou/uL (4.8-10.8)
[2020-08-15 07:16] LABS: Base Excess (BEa) 0.1 mEq/L (-2.0 to +3.0); CO2 Tension 49.7 mmHg (35.0-45.0); Calcium, Ionized (arterial) 1.05 mmol/L (1.12-1.30); Hemoglobin (Hb) 6.5 g/dL (12.0-16.0); pH, Arterial 7.34 (7.35-7.45)
[2020-08-15 07:18] LABS: O2 Tension (PaO2), arterial 55.1 mmHg (> 80.0); Puncture Site RRA
[2020-08-15 07:19] LABS: ALV-art Gradient 595.775 mmHg (0-20)
[2020-08-15] MEDS: Mometasone 200 MCG/Formoterol 5 MCG 120 PUFF INHALER INH SCH ×2 (07:42→18:37)
[2020-08-15] MEDS: methylPREDNISolone Sod Succ 40 MG VIAL IVP SCH ×2 (08:09→23:43)
--- NOTE | 2020-08-15 08:36 | RAD ---
CHEST 1 VIEW: Date: 08/15/2020 INDICATION: History of intubation. COMPARISON: Prior exam dated 08/10/2020. FINDINGS: There is worsening bilateral air space disease predominantly within the left perihilar region and bot h lower lobes. There is a new moderate right-sided pneumothorax. ET tube, gastric catheter, and right IJ central venous catheter are unchanged. Osseous structures are unchanged. IMPRESSION: 1. Interval development of moderate right-sided pneumothorax. 2. Worsening bilateral pneumonia. 3. Tubes and lines are stable. Findings called to Jasmine Chaudhry RN for this patient, at 0454 hours on 08/15/2020. \ CODE CR. POS:
--- NOTE | 2020-08-15 14:38 | PRG ---
DATE OF SERVICE: 08/15/2020 SUBJECTIVE: During the night, the patient had a low worsening in oxygen saturation and returned to 100%, where she had been down to about 70%. Morning x-ray reveals a right somewhat loculated apical pneumothorax. She remains heavily sedated. OBJECTIVE: VITAL SIGNS: Blood pressure 115/56, heart rate 103. Current ventilator settings include rate of 35, bilevel support 45/15, and FiO2 of 100%. GENERAL: She is sedated. She is not responding to verbal stimuli. NECK: Shows no adenopathy. LUNGS: Show bilateral coarse rales. HEART: Regular rate and rhythm. ABDOMEN: Soft. There is no organomegaly. EXTREMITIES: She does not have cords. She has 1+ distal edema. LABORATORY DATA: White count 18,400, hemoglobin is 7, hematocrit of 18.7, and platelet count of 119,000. Blood gas includes pH 7.34, pCO2 of 50, pO2 of 55, bicarbonate 26. This is obtained on settings as above. Sodium 135, potassium 3.6, chloride 96, CO2 of 21, BUN 42, creatinine 2.3. Chest x-ray shows a small pneumothorax in the right apex. IMPRESSION: 1. COVID pneumonia with persistent hypoxic hypercapnic respiratory failure. Currently at the maximum levels of ventilatory support. 2. Spontaneous right pneumothorax, presumed secondary to high airway pressures. 3. Renal insufficiency. PLAN: We will continue current support. She still has elevated fibrin degradation products and low fibrinogen with elevated D-dimer. This is all suggestive of DIC. Unfortunately, condition is at the level of maximal support. I am not encouraged about placing a chest tube given her DIC. Her lung mechanics are so poor and her lungs are so stiff that right now, she does not have an enlarging pneumothorax or evidence of tension. I have had a long talk with the patient's and have encouraged him to consider a point at which we would need to withdraw support. We have talked about temporarily taking her off sedation so that he might speak to her, although on further thinking he has decided that is more likely to be difficult for her than beneficial for him. I suspect that she may well have further deterioration in light of her underlying pneumothorax. We will continue discussions regarding possible withdrawal of support. Critical care, 39 minutes. Job ID: [id number]
--- NOTE | 2020-08-15 14:56 | PDOC.HOSPP ---
- Subjective Encounter Date: 08/15/20 Encounter Time: 11:00 Subjective: Patient on vent and sedated. Significant hypoxia overnight. Currently at bilevel support. Care discussed with RN. Right-sided pneumothorax on this morning chest x-ray. Contra for chest tube placement in the context of DIC. - Objective Vital Signs & Weight: Vital Signs (12 hours) Temp Pulse Resp BP Pulse Ox 08/15/20 14:00 34 H 08/15/20 13:21 103 H 111/56 L 08/15/20 12:00 98.9 F 35 H 08/15/20 10:41 99 08/15/20 10:00 35 H 08/15/20 08:00 35 H 95 08/15/20 07:42 93 08/15/20 06:00 35 H 08/15/20 04:00 99.5 F 35 H Weight Admit Weight 214 lb Weight 214 lb Most Recent Monitor Data Heart Rate from ECG 102 NIBP 110/55 NIBP BP-Mean 73 Respiration from ECG 37 SpO2 97 I&O: 08/14/20 08/15/20 08/16/20 06:59 06:59 06:59 Intake Total 1513.2 1207.0 Output Total 530 10 11 Balance 983.2 1197.0 -11 Result Diagrams: 08/15/20 04:17 08/15/20 03:30 Hospitalist ROS - Medication Medications: Active Medications Generic Name Dose Route Start Last Admin Trade Name Freq PRN Reason Stop Dose Admin Acetaminophen 650 mg 07/25/20 23:42 07/26/20 21:14 Acetaminophen 325 Mg Tab PO 650 mg Q4H PRN Administration Headache/Fever/Mild Pain (1-3) Albuterol Sulfate 2.5 mg 08/03/20 19:00 08/15/20 13:21 Albuterol Sulfate 2.5 Mg/3 Ml Neb NEB 2.5 mg [id number] MEGHAN Administration Fentanyl Citrate 2,000 mcg/ 100 mls @ 0 mls/hr 08/07/20 07:00 08/15/20 05:49 Sodium Chloride IV 100 mls INF MEGHAN Administration Protocol Per Protocol Norepinephrine Bitartrate 250 mls @ 0 mls/hr 08/11/20 08:15 08/14/20 18:37 Levophed IVPB 250 mls INF MEGHAN Administration Protocol Titrate Pantoprazole Sodium 80 mg/ 100 mls @ 10 mls/hr 08/13/20 11:30 08/15/20 04:14 Miscellaneous Medication 1 IVPB 100 mls each/ Sodium Chloride INF MEGHAN Administration Lorazepam 2 mg 08/07/20 06:45 08/15/20 09:42 Lorazepam 2 Mg/Ml Vial SLOW IVP 2 mg Q1H PRN Administration Breakthrough agitation Methylprednisolone Sodium Succinate 40 mg 08/14/20 21:00 08/15/20 08:09 Methylprednisolone Sod Succ 40 Mg Vial IVP 40 mg Q12HR MEGHAN Administration Mometasone Furoate/Formoterol Fumar 2 puff 08/03/20 18:30 08/15/20 07:42 Mometasone 200 Mcg/Formoterol 5 Mcg 120 Puff Inhaler INH 2 puff BID-RT MEGHAN Administration Morphine Sulfate 2 mg 08/07/20 06:45 08/08/20 01:10 Morphine 2 Mg/Ml Vial SLOW IVP 2 mg Q1H PRN Administration Breakthrough Pain/Agitation Propofol 1,000 mg 07/28/20 06:15 08/15/20 11:24 Propofol 1,000 Mg/100 Ml Vial IV 08/27/20 06:15 1,000 mg INF PRN Administration TO ACHIEVE GOAL RASS Protocol Rocuronium [place] 100 mg 08/07/20 21:28 08/14/20 18:14 Rocuronium [place] 50 Mg/5 Ml Vial IVP 100 mg Q1H PRN Administration PARALIZATION Sodium Chloride 10 ml 07/27/20 09:00 08/15/20 14:03 Flush - Normal Saline 10 Ml Syringe IVF Not Given Q12HR MEGHAN Sodium Chloride 10 ml 07/27/20 07:15 08/15/20 02:50 Flush - Normal Saline 10 Ml Syringe IVF 10 ml PRN PRN Administration Saline Flush - Exam General - other findings: On vent and sedated. Hosp A/P - Plan (1) Acute respiratory failure with hypoxia Code(s): J96.01 - ACUTE RESPIRATORY FAILURE WITH HYPOXIA Status: Acute (2) GI bleed Code(s): K92.2 - GASTROINTESTINAL HEMORRHAGE, UNSPECIFIED Status: Acute (3) Acute anemia Code(s): D64.9 - ANEMIA, UNSPECIFIED Status: Acute (4) Pneumonia due to COVID-19 virus Code(s): U07.1 - COVID-19; J12.89 - OTHER VIRAL PNEUMONIA Status: Acute (5) Diastolic dysfunction Code(s): I51.9 - HEART DISEASE, UNSPECIFIED Status: Chronic (6) Hypertension Code(s): I10 - ESSENTIAL (PRIMARY) HYPERTENSION Status: Chronic Qualifiers: Hypertension type: essential hypertension Qualified Code(s): I10 - Essential (primary) hypertension (7) ILD (interstitial lung disease) Code(s): J84.9 - INTERSTITIAL PULMONARY DISEASE, UNSPECIFIED Status: Chronic (8) Obesity (BMI 30.0-34.9) Code(s): E66.9 - OBESITY, UNSPECIFIED Status: Chronic (9) Acute kidney injury Code(s): N17.9 - ACUTE KIDNEY FAILURE, UNSPECIFIED Status: Acute Chronic diastolic heart failure Acute kidney injury requiring dialysis. DIC- likely from recent COVID infection * COVID pneumonia with respiratory failure- * -Worsening respiratory condition and poor lung status, And now new pneumothorax on the right side. * -Requiring ongoing bilevel vent support. * * * GI- bleed with acute blood loss anemia- She continues to have some dark colored gastric secretions- * -She is not a strong candidate for any endoscopic study in the context of DIC. * Continue Protonix drip. * -Her hemoglobin today rounds 7.0.--- And her prognosis being poor overall it may not be helpful to do transfusion at this point. * - * * * It appears that Dr. Rice has discussed with the spouse about taking her off sedation and had a chance for the spouse to talk to her. * -Consideration for withdrawal of vent support. * -Palliative consult placed. * Prognosis is guarded
[2020-08-15] MEDS ORDERED: Heparin 10,000 UNITS/ 10 ML VIAL ONE (14:59)
[2020-08-16] MEDS: Albuterol Sulfate 2.5 mg/3 ml Neb NEB SCH ×4 (02:29→19:08)
[2020-08-16] MEDS: Lorazepam 2 MG/ML VIAL SLOW IVP PRN ×3 (02:56→20:14)
[2020-08-16] MEDS: Propofol 1,000 MG/100 ML VIAL IV PRN ×5 (04:29→23:52)
[2020-08-16 05:16] LABS: Anion Gap 17 mmol/L (10-20); BUN (Urea Nitrogen) 34 mg/dL (9.8-20.1); Calc. Creatinine Clearance 42 mL/min (70-130); Calcium 7.4 mg/dL (7.8-10.44); Carbon Dioxide 25 mmol/L (23-31); Chloride 97 mmol/L (98-107); Estimated GFR-MDRD 24; Glucose 120 mg/dL (80-115); Potassium 3.7 mmol/L (3.5-5.1); Sodium 135 mmol/L (136-145)
[2020-08-16 05:46] LABS: Band 6 % (5-11); Eosinophils 1 % (0-10); Hemoglobin 6.3 g/dL (12.0-16.0); Hypochromia SLIGHT = 6-15 cells (100X) (0-5/hpf); Lymphocytes 5 % (21-51); MDiff Complete? YES; Mean Corpuscular HGB CONC 37.2 g/dL (32.0-36.0); Mean Corpuscular Volume 88.8 fL (78.0-98.0); Mean Platelet Volume 8.8 fL (7.4-10.4); Metamyelocyte 1 % (0-0); Monocytes 5 % (0-10); Neutrophil 82 % (42-75); Platelet Count 95 thou/uL (130-400); Platelet Morphology Comment Appears Decreased; RBC Distribution Width 12.4 % (11.5-14.5); Red Blood Cell (RBC) Count 1.91 mill/uL (4.20-5.40); White Blood Cell (WBC) Count 15.2 thou/uL (4.8-10.8)
[2020-08-16] MEDS: Mometasone 200 MCG/Formoterol 5 MCG 120 PUFF INHALER INH SCH ×2 (07:45→19:08)
[2020-08-16 07:50] LABS: Actual Bicarbonate (HCO3a) 25.3 mEq/L (22-28); Analyzer IN Cardio ER; Base Excess (BEa) -1.1 mEq/L (-2.0 to +3.0); CO2 Tension 52.8 mmHg (35.0-45.0); Calcium, Ionized (arterial) 1.05 mmol/L (1.12-1.30); Carboxyhemoglobin (COHb) 0.4 gm% (0.0-3.0); Hemoglobin (Hb) 6.5 g/dL (12.0-16.0); O2 Tension (PaO2), arterial 70.2 mmHg (> 80.0); Potassium - ABG Lab 3.59 mmol/L (3.70-5.30)
[2020-08-16] MEDS: methylPREDNISolone Sod Succ 40 MG VIAL IVP SCH ×2 (07:55→20:14)
[2020-08-16 07:59] LABS: Puncture Site RRA
--- NOTE | 2020-08-16 10:47 | RAD ---
CHEST ONE VIEW: INDICATIONS: History of intubation and pneumonia. COMPARISON: Prior exam dated 08/15/2020. FINDINGS: Since the comparison examination, moderate right-sided pneumothorax is unchanged. ET tube, gastric ca theter and right IJ central venous catheter is unchanged. Air space disease in the left lung is stabl e. Small left-sided pleural effusion persists. Osseous structures are unchanged. IMPRESSION: Stable examination of the chest with stable moderate right-sided pneumothorax. POS: BH
[2020-08-16] MEDS: Pantoprazole 80 MG, Admixture Fee 1 EACH in Sodium Chloride 0.9% 100 ML IVPB SCH ×2 (12:44→23:52)
--- NOTE | 2020-08-16 13:03 | PRG ---
DATE OF SERVICE: 08/16/2020 SUBJECTIVE: She continues to receive ventilatory support with a rate of 35, bilevel 42/16, and FiO2 of 100%. Unfortunately, we have not been able to wean her oxygen more than a couple points and then rapidly deteriorates. OBJECTIVE: VITAL SIGNS: Blood pressure 139/70, heart rate 93, saturation 95%. GENERAL: She is sedated and not responsive to verbal stimuli. LUNGS: Show bilateral rales. I do not hear any wheezes. HEART: Regular rate and rhythm. ABDOMEN: Soft. EXTREMITIES: She has 1 to 2+ lower extremity edema. LABORATORY DATA: Chest x-ray shows cardiomegaly. Lines are in appropriate positions. She has bibasilar infiltrates, more prominent on the right, but probably equal. There is a small left apical pneumothorax. White count 15,000, hemoglobin is 6.3 with hematocrit of 17. Chemistry panel includes sodium 135, potassium 3.7, BUN is 34, creatinine 2.0. Blood gas shows pH 7.3, pCO2 of 53, pO2 of 70, and bicarbonate 25 on settings as above. IMPRESSION: COVID pneumonia with severe hypoxic respiratory failure, currently requiring FiO2 of 100%. She also has a small right apical pneumothorax, which is probably secondary to barotrauma. It has not dramatically altered her status and as such has not been treated with a chest tube. PLAN: We will continue current therapies. I do not think that a chest tube is indicated at this point. Unfortunately, she has now been on the ventilator for several weeks and continues to be on FiO2 of 100%. Her coagulopathy studies suggest DIC, hence the difficulty in doing procedures. I have spoken with the about her imminent prognosis, but he has not yet made a decision regarding limitation and withdrawal of any support. Critical care time, 33 minutes. ADDENDUM: I have spoken to the patient's . He seems to be slowly moving toward the position of withdrawing support, but does not feel that he can do that today because it is his son's birthday. He is anxious to speak to Dr. Alvarez or Dr. Rodgers upon their return. In the interim, we will give 1 unit of blood today and dialysis. Job ID: [id number]
--- NOTE | 2020-08-16 13:03 | PRG ---
DATE OF SERVICE: 08/15/2020 SUBJECTIVE: The patient is seen and examined in ICU. at the bedside. The patient is not feeling well. She had new pneumothorax noted on x-ray today and oxygen requirement. OBJECTIVE: GENERAL: This is an elderly female, intubated. VITAL SIGNS: Temperature 98.6, pulse 99, blood pressure 108/55. HEENT: Intubated. CV: S1 and S2 heard. RESPIRATORY: Coarse. GI: Abdomen is soft. MUSCULOSKELETAL: 1+ edema. DERMATOLOGIC: No skin rash. NEUROLOGIC: Intubated. LABORATORY DATA: Potassium 3.6, BUN is 42, creatinine is 2.3. ASSESSMENT AND PLAN: 1. Acute kidney injury on chronic kidney disease, stage 2, dialysis dependent. The patient is not doing well overall but is undecided about goals of care. He wants us to do dialysis until he can make a decision. The patient has a new pneumothorax also today. Plan is to have ultrafiltration only to see if it would help improve her oxygenation status. 2. Hyponatremia. 3. We will have fluid removal. 4. Hyperkalemia, better. 5. Acidosis, stable. 6. Acute hypoxic respiratory failure. 7. New pneumothorax. 8. Disseminated intravascular coagulation. 9. Fluid overload. 10. COVID-19 infection, off isolation now. 11. Anemia. Prognosis remains poor. Plan is to have ultrafiltration if the patient can tolerate it. We will follow. Job ID: [id number]
--- NOTE | 2020-08-16 13:04 | PRG ---
DATE OF SERVICE: 08/14/2020 SUBJECTIVE: The patient is seen and examined at bedside. No family members available. She remains intubated, but her oxygen requirements are coming down per the ICU staff. OBJECTIVE: GENERAL: Elderly female. Remains intubated. VITAL SIGNS: Temperature 96, pulse 90, respiratory rate 36, blood pressure 109/58. HEENT: Intubated. CV: S1 and S2 heard. RESPIRATORY: Coarse breath sounds. GI: Abdomen, soft MUSCULOSKELETAL: 1+ edema. DERMATOLOGIC: No skin rash. NEUROLOGIC: Intubated. LABORATORY DATA: Hemoglobin is 7.2. Potassium 4.7, BUN is 79, creatinine is 3.1. ASSESSMENT AND PLAN: 1. Acute kidney injury on chronic kidney disease stage 2. Remains dialysis dependent. The patient is showing some improvement in oxygenation with dialysis and her blood pressure is tolerating with touch of Levophed, so plan is to have daily dialysis. I will alternate her with UF treatments with clearance treatments and see if we can get some fluid off. We will order a chest x-ray in the morning. 2. Hyponatremia. We will remove fluid. 3. Acidosis. 4. Azotemia. 5. Acute hypoxic respiratory failure. 6. Hypocalcemia. We will check albumin and CMP in the morning. 7. Hyperkalemia, better. 8. Fluid overload, attempting to remove fluid dialysis as tolerated with use of pressors and albumin. 9. COVID-19 infection, off isolation now. 10. Anemia. Hemoglobin is better. Continue to monitor and rule out any bleed. 11. Hypoalbuminemia. 12. Prognosis, still guarded. Plan is to have dialysis if tolerated with fluid removal as tolerated. Thank you again for allowing me to participate in the care of this patient. Job ID: [id number]
--- NOTE | 2020-08-16 14:34 | PRG ---
DATE OF SERVICE: 08/16/2020 SUBJECTIVE: The patient is seen and examined at bedside. Remains intubated. Seen in ICU. was at the bedside. OBJECTIVE: GENERAL: This is an elderly female, remains intubated. VITAL SIGNS: Temperature 98.9, pulse 100, respiratory rate 41, blood pressure 139/70. HEENT: Intubated. CV: S1, S2 heard. RESPIRATORY: Coarse breath sounds. ABDOMEN: Soft. MUSCULOSKELETAL: 1+ edema. DERMATOLOGIC: No skin rash. NEUROLOGIC: Intubated. LABORATORY DATA: Hemoglobin 6.3. Potassium 3.7, BUN is 34, and creatinine is 2.05. ASSESSMENT AND PLAN: 1. Acute kidney injury on chronic kidney disease, stage 2. Remains dialysis dependent, not much improvement in respiratory status. Still requiring high levels of oxygen. was at the bedside her son is having birthday today, so he cannot make any decision for withdrawal of care. He is okay with trying dialysis to see if any improvement will happen with fluid removal, but he understands that we are not making any progress. 2. Anemia. We will transfuse 1 unit with dialysis. 3. COVID-19 infection. 4. Acute hypoxic respiratory failure. 5. Acidosis. 6. Anemia. 7. Hypoalbuminemia. 8. Prognosis remains guarded. No significant improvement with dialysis, respiratory status. We will have another dialysis today with blood transfusion and decision to be made tomorrow when all the primary physicians are back. We will follow. Dr. Land will be covering me next week. Job ID: [id number]
--- NOTE | 2020-08-16 14:35 | PDOC.HOSPP ---
- Subjective Encounter Date: 08/16/20 Encounter Time: 11:20 Subjective: Patient remains in a critical condition. I talked to the today regarding palliative and possible hospice including future withdrawal of care. - Objective Vital Signs & Weight: Vital Signs (12 hours) Temp Pulse Resp Pulse Ox 08/16/20 14:02 93 08/16/20 14:00 36 H 08/16/20 12:00 98.9 F 36 H 08/16/20 10:59 99 08/16/20 09:47 41 H 08/16/20 08:30 37 H 08/16/20 07:46 94 08/16/20 07:30 37 H 08/16/20 07:02 98 08/16/20 07:00 99.1 F 08/16/20 06:00 35 H 08/16/20 04:00 99.2 F 35 H Weight Admit Weight 214 lb Weight 214 lb Most Recent Monitor Data Heart Rate from ECG 95 NIBP 102/49 NIBP BP-Mean 66 Respiration from ECG 37 SpO2 94 I&O: 08/15/20 08/16/20 08/17/20 06:59 06:59 06:59 Intake Total 1207.0 1191.8 Output Total 10 36 Balance 1197.0 1155.8 Result Diagrams: 08/16/20 04:35 08/16/20 04:35 Hospitalist ROS - Medication Medications: Active Medications Generic Name Dose Route Start Last Admin Trade Name Freq PRN Reason Stop Dose Admin Acetaminophen 650 mg 07/25/20 23:42 07/26/20 21:14 Acetaminophen 325 Mg Tab PO 650 mg Q4H PRN Administration Headache/Fever/Mild Pain (1-3) Albuterol Sulfate 2.5 mg 08/03/20 19:00 08/16/20 14:01 Albuterol Sulfate 2.5 Mg/3 Ml Neb NEB 2.5 mg [id number] MEGHAN Administration Fentanyl Citrate 2,000 mcg/ 100 mls @ 0 mls/hr 08/07/20 07:00 08/15/20 23:22 Sodium Chloride IV 100 mls INF MEGHAN Administration Protocol Per Protocol Norepinephrine Bitartrate 250 mls @ 0 mls/hr 08/11/20 08:15 08/14/20 18:37 Levophed IVPB 250 mls INF MEGHAN Administration Protocol Titrate Pantoprazole Sodium 80 mg/ 100 mls @ 10 mls/hr 08/13/20 11:30 08/16/20 12:44 Miscellaneous Medication 1 IVPB 100 mls each/ Sodium Chloride INF MEGHAN Administration Lorazepam 2 mg 08/07/20 06:45 08/16/20 10:58 Lorazepam 2 Mg/Ml Vial SLOW IVP 2 mg Q1H PRN Administration Breakthrough agitation Methylprednisolone Sodium Succinate 40 mg 08/14/20 21:00 08/16/20 07:55 Methylprednisolone Sod Succ 40 Mg Vial IVP 40 mg Q12HR MEGHAN Administration Mometasone Furoate/Formoterol Fumar 2 puff 08/03/20 18:30 08/16/20 07:45 Mometasone 200 Mcg/Formoterol 5 Mcg 120 Puff Inhaler INH 2 puff BID-RT MEGHAN Administration Morphine Sulfate 2 mg 08/07/20 06:45 08/08/20 01:10 Morphine 2 Mg/Ml Vial SLOW IVP 2 mg Q1H PRN Administration Breakthrough Pain/Agitation Propofol 1,000 mg 07/28/20 06:15 08/16/20 10:57 Propofol 1,000 Mg/100 Ml Vial IV 08/27/20 06:15 1,000 mg INF PRN Administration TO ACHIEVE GOAL RASS Protocol Rocuronium [place] 100 mg 08/07/20 21:28 08/14/20 18:14 Rocuronium [place] 50 Mg/5 Ml Vial IVP 100 mg Q1H PRN Administration PARALIZATION Sodium Chloride 10 ml 07/27/20 09:00 08/16/20 08:19 Flush - Normal Saline 10 Ml Syringe IVF 10 ml Q12HR MEGHAN Administration Sodium Chloride 10 ml 07/27/20 07:15 08/15/20 02:50 Flush - Normal Saline 10 Ml Syringe IVF 10 ml PRN PRN Administration Saline Flush - Exam General Appearance: ill appearing General - other findings: Vent dependent Eye: PERRL ENT: normocephalic atraumatic Neck: supple Respiratory: normal chest expansion Psychiatric: not oriented Hosp A/P - Plan (1) Acute respiratory failure with hypoxia Code(s): J96.01 - ACUTE RESPIRATORY FAILURE WITH HYPOXIA Status: Acute (2) GI bleed Code(s): K92.2 - GASTROINTESTINAL HEMORRHAGE, UNSPECIFIED Status: Acute (3) Acute anemia Code(s): D64.9 - ANEMIA, UNSPECIFIED Status: Acute (4) Pneumonia due to COVID-19 virus Code(s): U07.1 - COVID-19; J12.89 - OTHER VIRAL PNEUMONIA Status: Acute (5) Diastolic dysfunction Code(s): I51.9 - HEART DISEASE, UNSPECIFIED Status: Chronic (6) Hypertension Code(s): I10 - ESSENTIAL (PRIMARY) HYPERTENSION Status: Chronic Qualifiers: Hypertension type: essential hypertension Qualified Code(s): I10 - Essential (primary) hypertension (7) ILD (interstitial lung disease) Code(s): J84.9 - INTERSTITIAL PULMONARY DISEASE, UNSPECIFIED Status: Chronic (8) Obesity (BMI 30.0-34.9) Code(s): E66.9 - OBESITY, UNSPECIFIED Status: Chronic (9) Acute kidney injury Code(s): N17.9 - ACUTE KIDNEY FAILURE, UNSPECIFIED Status: Acute Chronic diastolic heart failure Acute kidney injury requiring dialysis. DIC- likely from recent COVID infection * COVID pneumonia with respiratory failure- * -Worsening respiratory condition and poor lung status, And now new pneumothorax on the right side. * -Requiring ongoing bilevel vent support. * * * GI- bleed with acute blood loss anemia- She continues to have some dark c olored gastric secretions- * -She is not a strong candidate for any endoscopic study in the context of DIC. * Continue Protonix drip. * -Her hemoglobin today rounds 7.0.--- And her prognosis being poor overall it may not be helpful to do transfusion at this point. * - * * * It appears that Dr. Rice has discussed with the spouse about taking her off sedation and had a chance for the spouse to talk to her. * -Consideration for withdrawal of vent support. * -Palliative consult placed. * Prognosis is guarded 15 I talked to the today regarding palliative and possible hospice including withdrawal of care. Understandably it is a difficult decision making process.
[2020-08-16] MEDS ORDERED: Heparin 10,000 UNITS/ 10 ML VIAL ONE (15:00)
[2020-08-16] MEDS: fentaNYL Citrate/PF 2,000 MCG in Sodium Chloride 0.9% 60 ML IV SCH (16:03)
[2020-08-16] MEDS: Norepinephrine 8 MG/0.9% NS 250 ML IVPB SCH (16:25)
[2020-08-17] MEDS: Albuterol Sulfate 2.5 mg/3 ml Neb NEB SCH ×4 (01:36→18:29)
[2020-08-17] MEDS: Lorazepam 2 MG/ML VIAL SLOW IVP PRN (03:50)
[2020-08-17] MEDS: Propofol 1,000 MG/100 ML VIAL IV PRN ×5 (04:10→23:05)
[2020-08-17 05:19] LABS: Anion Gap 15 mmol/L (10-20); BUN (Urea Nitrogen) 30 mg/dL (9.8-20.1); Calc. Creatinine Clearance 40 mL/min (70-130); Calcium 7.5 mg/dL (7.8-10.44); Carbon Dioxide 27 mmol/L (23-31); Chloride 98 mmol/L (98-107); Estimated GFR-MDRD 23; Glucose 100 mg/dL (80-115); Potassium 3.6 mmol/L (3.5-5.1); Sodium 136 mmol/L (136-145)
[2020-08-17 05:25] LABS: Band 14 % (5-11); Eosinophils 2 % (0-10); Hemoglobin 7.9 g/dL (12.0-16.0); Hypochromia SLIGHT = 6-15 cells (100X) (0-5/hpf); Lymphocytes 18 % (21-51); MDiff Complete? YES; Mean Corpuscular HGB CONC 35.3 g/dL (32.0-36.0); Mean Corpuscular Hemoglobin 30.4 pg (27.0-31.0); Mean Corpuscular Volume 86.2 fL (78.0-98.0); Mean Platelet Volume 9.7 fL (7.4-10.4); Monocytes 2 % (0-10); Neutrophil 64 % (42-75); Platelet Count 84 thou/uL (130-400); Platelet Morphology Comment Appears Decreased; RBC Distribution Width 13.5 % (11.5-14.5); Red Blood Cell (RBC) Count 2.58 mill/uL (4.20-5.40)
[2020-08-17] MEDS: Mometasone 200 MCG/Formoterol 5 MCG 120 PUFF INHALER INH SCH ×2 (07:02→18:29)
[2020-08-17 07:22] LABS: Actual Bicarbonate (HCO3a) 26.7 mEq/L (22-28); Analyzer IN Cardio OR; Base Excess (BEa) 0.3 mEq/L (-2.0 to +3.0); Calcium, Ionized (arterial) 1.11 mmol/L (1.12-1.30); Carboxyhemoglobin (COHb) 2.9 gm% (0.0-3.0); Hemoglobin (Hb) 7.8 g/dL (12.0-16.0); Potassium - ABG Lab 3.35 mmol/L (3.70-5.30); pH, Arterial 7.32 (7.35-7.45)
[2020-08-17 07:29] LABS: O2 Tension (PaO2), arterial 50.8 mmHg (> 80.0); Puncture Site RRA
[2020-08-17] MEDS: Pantoprazole 80 MG, Admixture Fee 1 EACH in Sodium Chloride 0.9% 100 ML IVPB SCH ×2 (08:58→19:50)
[2020-08-17] MEDS: methylPREDNISolone Sod Succ 40 MG VIAL IVP SCH ×2 (09:00→21:36)
[2020-08-17] MEDS ORDERED: Fentanyl BOLUS 250 ML IVPB PRN (09:05)
[2020-08-17] MEDS: fentaNYL Citrate/PF 2,000 MCG in Sodium Chloride 0.9% 60 ML IV SCH (09:39)
--- NOTE | 2020-08-17 10:28 | PRG ---
DATE OF SERVICE: 08/17/2020 SUBJECTIVE: Lorri Hogue remains in the ICU, intubated in the vent. She is now day 23. X-ray showing diffuse haziness. OBJECTIVE: VITAL SIGNS: Pulse 101, blood pressure 140/80, saturations are 99%, 80% on 15 PEEP bilevel, respiratory rate is about 40, her maximum temperature is 97. GENERAL: Pretty much unresponsive, sedated with Diprivan and fentanyl. No urine output. She is being dialyzed. CHEST: Extensive rhonchi. CARDIAC: Normal S1 and S2. ABDOMEN: Soft, massive. EXTREMITIES: 2+ edema. LABORATORY RESULTS: White count 13,000, H and H of 7 and 22, platelet count is 84. PO2 is 50, pCO2 of 50, pH 7.32, on a bilevel. Creatinine is 2, BUN 30. Last chest x-ray shows evidence of haziness. She has a right apical pneumothorax. ASSESSMENT: Respiratory failure, acute respiratory distress syndrome, right pneumothorax, renal failure, thrombocytopenia. PLAN: She is clearly not weanable. Continue supportive care, PT. Consider consultation with CV regarding chest tube insertion. Prognosis remains grave. One-half hour of critical care time. Job ID: [id number]
--- NOTE | 2020-08-17 11:43 | PRG ---
DATE OF SERVICE: 08/17/2020 SUBJECTIVE: A 65-year-old female, being seen for end-stage renal disease. The patient is resting and intubated. OBJECTIVE: GENERAL: The patient is resting. VITAL SIGNS: Afebrile, pulse 99, breathing at 16, and blood pressure 144/63. HEENT: Head normocephalic and atraumatic. Eyes intact, no ulcers. Nose intact, no ulcers. Ears intact, no ulcers. NECK: Supple. No JVD. CHEST: Symmetrical and clear. CARDIOVASCULAR: Shows S1 and S2, no rub, no murmur. GASTROINTESTINAL: Abdomen is soft, bowel sounds positive. EXTREMITIES: Show no edema or ulcers. SKIN: Shows no rash or petechiae. MUSCULOSKELETAL: Shows no joint swelling or stiffness. GENITOURINARY: Shows no Rosen or CVA tenderness. NEUROLOGIC: Motor intact. Cranial nerves intact. LABORATORY DATA: Reviewed. ASSESSMENT AND PLAN: 1. Stage 6 chronic kidney disease, plan dialysis . 2. Hypertension, stable. 3. Anemia, stable. Overall prognosis is poor. Job ID: [id number]
--- NOTE | 2020-08-17 15:20 | PDOC.HOSPP ---
- Subjective Encounter Date: 08/17/20 Encounter Time: 10:30 Subjective: Patient remained the same. And no clinical improvement. Spouse is not at bedside. Difficult to wean her off the vent. Palliative consult placed after I talked to the spouse. - Objective Vital Signs & Weight: Vital Signs (12 hours) Temp Pulse Resp 08/17/20 14:09 103 H 08/17/20 11:08 99 08/17/20 09:02 98 08/17/20 06:00 47 H 08/17/20 04:00 97.6 F 35 H Weight Admit Weight 214 lb Weight 214 lb Most Recent Monitor Data Heart Rate from ECG 101 NIBP 144/68 NIBP BP-Mean 93 Respiration from ECG 35 SpO2 95 I&O: 08/16/20 08/17/20 08/18/20 06:59 06:59 06:59 Intake Total 1191.8 1644 120 Output Total 36 15 Balance 1155.8 1629 120 Result Diagrams: 08/17/20 04:40 08/17/20 04:40 Hospitalist ROS - Medication Medications: Active Medications Generic Name Dose Route Start Last Admin Trade Name Freq PRN Reason Stop Dose Admin Acetaminophen 650 mg 07/25/20 23:42 07/26/20 21:14 Acetaminophen 325 Mg Tab PO 650 mg Q4H PRN Administration Headache/Fever/Mild Pain (1-3) Albuterol Sulfate 2.5 mg 08/03/20 19:00 08/17/20 13:01 Albuterol Sulfate 2.5 Mg/3 Ml Neb NEB 2.5 mg [id number] MEGHAN Administration Norepinephrine Bitartrate 250 mls @ 0 mls/hr 08/11/20 08:15 08/16/20 16:25 Levophed IVPB 250 mls INF MEGHAN Administration Protocol Titrate Pantoprazole Sodium 80 mg/ 100 mls @ 10 mls/hr 08/13/20 11:30 08/17/20 08:58 Miscellaneous Medication 1 IVPB 100 mls each/ Sodium Chloride INF MEGHAN Administration Fentanyl Citrate 2,000 mcg/ 100 mls @ 0 mls/hr 08/17/20 09:15 08/17/20 09:39 Sodium Chloride IV 100 mls INF MEGHAN Administration Protocol Per Protocol Methylprednisolone Sodium Succinate 40 mg 08/14/20 21:00 08/17/20 09:00 Methylprednisolone Sod Succ 40 Mg Vial IVP 40 mg Q12HR MEGHAN Administration Mometasone Furoate/Formoterol Fumar 2 puff 08/03/20 18:30 08/17/20 07:02 Mometasone 200 Mcg/Formoterol 5 Mcg 120 Puff Inhaler INH 2 puff BID-RT MEGHAN Administration Propofol 1,000 mg 07/28/20 06:15 08/17/20 14:00 Propofol 1,000 Mg/100 Ml Vial IV 08/27/20 06:15 1,000 mg INF PRN Administration TO ACHIEVE GOAL RASS Protocol Rocuronium [place] 100 mg 08/07/20 21:28 08/14/20 18:14 Rocuronium [place] 50 Mg/5 Ml Vial IVP 100 mg Q1H PRN Administration PARALIZATION Sodium Chloride 10 ml 07/27/20 09:00 08/17/20 09:53 Flush - Normal Saline 10 Ml Syringe IVF 10 ml Q12HR MEGHAN Administration Sodium Chloride 10 ml 07/27/20 07:15 08/15/20 02:50 Flush - Normal Saline 10 Ml Syringe IVF 10 ml PRN PRN Administration Saline Flush - Exam General Appearance: NAD, awake alert Eye: PERRL ENT: normocephalic atraumatic Neck: supple Heart: RRR Respiratory: CTAB, normal chest expansion Gastrointestinal: soft, normal bowel sounds Neurological: cranial nerve grossly intact, no focal deficits Psychiatric: A&O x 3 Hosp A/P - Plan (1) Acute respiratory failure with hypoxia Code(s): J96.01 - ACUTE RESPIRATORY FAILURE WITH HYPOXIA Status: Acute (2) GI bleed Code(s): K92.2 - GASTROINTESTINAL HEMORRHAGE, UNSPECIFIED Status: Acute (3) Acute anemia Code(s): D64.9 - ANEMIA, UNSPECIFIED Status: Acute (4) Pneumonia due to COVID-19 virus Code(s): U07.1 - COVID-19; J12.89 - OTHER VIRAL PNEUMONIA Status: Acute (5) Diastolic dysfunction Code(s): I51.9 - HEART DISEASE, UNSPECIFIED Status: Chronic (6) Hypertension Code(s): I10 - ESSENTIAL (PRIMARY) HYPERTENSION Status: Chronic Qualifiers: Hypertension type: essential hypertension Qualified Code(s): I10 - Essential (primary) hypertension (7) ILD (interstitial lung disease) Code(s): J84.9 - INTERSTITIAL PULMONARY DISEASE, UNSPECIFIED Status: Chronic (8) Obesity (BMI 30.0-34.9) Code(s): E66.9 - OBESITY, UNSPECIFIED Status: Chronic (9) Acute kidney injury Code(s): N17.9 - ACUTE KIDNEY FAILURE, UNSPECIFIED Status: Acute Chronic diastolic heart failure Acute kidney injury requiring dialysis. DIC- likely from recent COVID infection * COVID pneumonia with respiratory failure- * -Worsening respiratory condition and poor lung status, And now new pneumotho rax on the right side. * -Requiring ongoing bilevel vent support. * * * GI- bleed with acute blood loss anemia- She continues to have some dark colored gastric secretions- * -She is not a strong candidate for any endoscopic study in the context of DIC. * Continue Protonix drip. * -Her hemoglobin today rounds 7.0.--- And her prognosis being poor overall it may not be helpful to do transfusion at this point. * - * * * It appears that Dr. Rice has discussed with the spouse about taking her off sedation and had a chance for the spouse to talk to her. * -Consideration for withdrawal of vent support. * -Palliative consult placed. * Prognosis is guarded 15th I talked to the today regarding palliative and possible hospice including withdrawal of care. Understandably it is a difficult decision making process. 16th No change in her clinical condition --leukocytosis trending down. Her c reatinine remains more or less stable the last couple of days. Sodium around 136. currently continuing with the vent management. spouse needs time to accept that eventuality and approach for withdrawal of care. Palliative is involved in the care. DNAR.
[2020-08-18] MEDS: Albuterol Sulfate 2.5 mg/3 ml Neb NEB SCH ×4 (00:05→18:20)
[2020-08-18] MEDS: Propofol 1,000 MG/100 ML VIAL IV PRN ×5 (03:48→22:30)
[2020-08-18] MEDS: fentaNYL Citrate/PF 2,000 MCG in Sodium Chloride 0.9% 60 ML IV SCH (03:51)
[2020-08-18 05:24] LABS: Anion Gap 19 mmol/L (10-20); BUN (Urea Nitrogen) 48 mg/dL (9.8-20.1); Calc. Creatinine Clearance 28 mL/min (70-130); Calcium 8.1 mg/dL (7.8-10.44); Carbon Dioxide 23 mmol/L (23-31); Chloride 95 mmol/L (98-107); Estimated GFR-MDRD 15; Glucose 132 mg/dL (80-115); Sodium 133 mmol/L (136-145)
[2020-08-18 05:25] LABS: Band 11 % (5-11); Eosinophils 3 % (0-10); Hemoglobin 8.4 g/dL (12.0-16.0); Lymphocytes 7 % (21-51); MDiff Complete? YES; Mean Corpuscular HGB CONC 34.9 g/dL (32.0-36.0); Mean Corpuscular Hemoglobin 30.4 pg (27.0-31.0); Mean Corpuscular Volume 87.2 fL (78.0-98.0); Mean Platelet Volume 9.7 fL (7.4-10.4); Monocytes 3 % (0-10); Neutrophil 76 % (42-75); Nucleated RBC 1 % (0); Platelet Count 88 thou/uL (130-400); Platelet Morphology Comment Appears Decreased; RBC Distribution Width 13.6 % (11.5-14.5); Red Blood Cell (RBC) Count 2.76 mill/uL (4.20-5.40); White Blood Cell (WBC) Count 11.9 thou/uL (4.8-10.8)
[2020-08-18] MEDS: Pantoprazole 80 MG, Admixture Fee 1 EACH in Sodium Chloride 0.9% 100 ML IVPB SCH (05:43)
[2020-08-18] MEDS: Mometasone 200 MCG/Formoterol 5 MCG 120 PUFF INHALER INH SCH ×2 (08:46→18:20)
[2020-08-18] MEDS: methylPREDNISolone Sod Succ 40 MG VIAL IVP SCH ×2 (09:35→20:07)
--- NOTE | 2020-08-18 09:42 | PRG ---
DATE OF SERVICE: 08/18/2020 SUBJECTIVE: This morning, remains intubated in the vent, sedated, unresponsive. OBJECTIVE: VITAL SIGNS: Temperature is 98.4, pulse 99, saturations are 98% on 100% FiO2 and low PEEP of 16, blood pressure 190/54, respirations 30. CHEST: No wheezing. No crackles. CARDIAC: Normal S1 and S2. ABDOMEN: Otherwise soft. LABORATORY DATA: Creatinine 3, BUN 48. White count 11,000. ASSESSMENT: 1. Acute respiratory distress syndrome. 2. Joel positive pneumonia. 3. Right-sided pneumothorax. 4. Thrombocytopenia. 5. Renal failure. PLAN: At this stage, the patient is not weanable. She is still on high-dose steroids. Supportive care. every treatment for the virus including remdesivir and plasma. Discussed with at length yesterday. Prognosis is grave. He is going to make a decision regarding comfort care in the next several days. One-half hour of critical care time. Job ID: [id number]
--- NOTE | 2020-08-18 15:06 | PDOC.HOSPP ---
- Subjective Encounter Date: 08/18/20 Encounter Time: 11:40 Subjective: No change. Went management continues. - Objective Vital Signs & Weight: Vital Signs (12 hours) Temp Pulse Resp 08/18/20 14:59 103 H 08/18/20 14:00 37 H 08/18/20 12:00 99.2 F 49 H 08/18/20 10:52 107 H 08/18/20 10:00 35 H 08/18/20 08:44 99 08/18/20 08:00 99.2 F 35 H 08/18/20 06:00 36 H 08/18/20 04:00 98.8 F 50 H Weight Admit Weight 214 lb Weight 214 lb Most Recent Monitor Data Heart Rate from ECG 101 NIBP 149/67 NIBP BP-Mean 94 Respiration from ECG 36 SpO2 88 I&O: 08/17/20 08/18/20 08/19/20 06:59 06:59 06:59 Intake Total 1644 1409 Output Total 15 22 Balance 1629 1387 Result Diagrams: 08/18/20 04:32 08/18/20 04:32 Hospitalist ROS - Medication Medications: Active Medications Generic Name Dose Route Start Last Admin Trade Name Freq PRN Reason Stop Dose Admin Acetaminophen 650 mg 07/25/20 23:42 07/26/20 21:14 Acetaminophen 325 Mg Tab PO 650 mg Q4H PRN Administration Headache/Fever/Mild Pain (1-3) Albuterol Sulfate 2.5 mg 08/03/20 19:00 08/18/20 14:59 Albuterol Sulfate 2.5 Mg/3 Ml Neb NEB 2.5 mg [id number] MEGHAN Administration Norepinephrine Bitartrate 250 mls @ 0 mls/hr 08/11/20 08:15 08/16/20 16:25 Levophed IVPB 250 mls INF MEGHAN Administration Protocol Titrate Pantoprazole Sodium 80 mg/ 100 mls @ 10 mls/hr 08/13/20 11:30 08/18/20 05:43 Miscellaneous Medication 1 IVPB 100 mls each/ Sodium Chloride INF MEGHAN Administration Fentanyl Citrate 2,000 mcg/ 100 mls @ 0 mls/hr 08/17/20 09:15 08/18/20 03:51 Sodium Chloride IV 100 mls INF MEGHAN Administration Protocol Per Protocol Methylprednisolone Sodium Succinate 40 mg 08/14/20 21:00 08/18/20 09:35 Methylprednisolone Sod Succ 40 Mg Vial IVP 40 mg Q12HR MEGHAN Administration Mometasone Furoate/Formoterol Fumar 2 puff 08/03/20 18:30 08/18/20 08:46 Mometasone 200 Mcg/Formoterol 5 Mcg 120 Puff Inhaler INH 2 puff BID-RT MEGHAN Administration Propofol 1,000 mg 07/28/20 06:15 08/18/20 13:25 Propofol 1,000 Mg/100 Ml Vial IV 08/27/20 06:15 1,000 mg INF PRN Administration TO ACHIEVE GOAL RASS Protocol Rocuronium [place] 100 mg 08/07/20 21:28 08/14/20 18:14 Rocuronium [place] 50 Mg/5 Ml Vial IVP 100 mg Q1H PRN Administration PARALIZATION Sodium Chloride 10 ml 07/27/20 09:00 08/18/20 09:11 Flush - Normal Saline 10 Ml Syringe IVF 10 ml Q12HR MEGHAN Administration - Exam General Appearance: ill appearing General - other findings: On vent ENT: normocephalic atraumatic Neck: supple Heart: RRR Respiratory: normal chest expansion Neurological: no new deficit Psychiatric: not oriented Hosp A/P - Plan (1) Acute respiratory failure with hypoxia Code(s): J96.01 - ACUTE RESPIRATORY FAILURE WITH HYPOXIA Status: Acute (2) GI bleed Code(s): K92.2 - GASTROINTESTINAL HEMORRHAGE, UNSPECIFIED Status: Acute (3) Acute anemia Code(s): D64.9 - ANEMIA, UNSPECIFIED Status: Acute (4) Pneumonia due to COVID-19 virus Code(s): U07.1 - COVID-19; J12.89 - OTHER VIRAL PNEUMONIA Status: Acute (5) Diastolic dysfunction Code(s): I51.9 - HEART DISEASE, UNSPECIFIED Status: Chronic (6) Hypertension Code(s): I10 - ESSENTIAL (PRIMARY) HYPERTENSION Status: Chronic Qualifiers: Hypertension type: essential hypertension Qualified Code(s): I10 - Essential (primary) hypertension (7) ILD (interstitial lung disease) Code(s): J84.9 - INTERSTITIAL PULMONARY DISEASE, UNSPECIFIED Status: Chronic (8) Obesity (BMI 30.0-34.9) Code(s): E66.9 - OBESITY, UNSPECIFIED Status: Chronic (9) Acute kidney injury Code(s): N17.9 - ACUTE KIDNEY FAILURE, UNSPECIFIED Status: Acute Chronic diastolic heart failure Acute kidney injury requiring dialysis. DIC- likely from recent COVID infection * COVID pneumonia with respiratory failure- * -Worsening respiratory condition and poor lung status, And now new pneumothorax on the right side. * -Requiring ongoing bilevel vent support. * * * GI- bleed with acute blood loss anemia- She continues to have some dark colored gastric secretions- * -She is not a strong candidate for any endoscopic study in the context of DIC. * Continue Protonix drip. * -Her hemoglobin today rounds 7.0.--- And her prognosis being poor overall it may not be helpful to do transfusion at this point. * - * * * It appears that Dr. Rice has discussed with the spouse about taking her off sedation and had a chance for the spouse to talk to her. * -Consideration for withdrawal of vent support. * -Palliative consult placed. * Prognosis is guarded I talked to the regarding palliative and possible hospice including withdrawal of care. Understandably it is a difficult decision making process. No change in her clinical condition --leukocytosis trending down. Her creatinine remains more or less stable the last couple of days. Sodium around 136. currently continuing with the vent management. spouse needs time to accept that eventuality and approach for withdrawal of care. Palliative is involved in the care. DNAR.
[2020-08-19] MEDS: Albuterol Sulfate 2.5 mg/3 ml Neb NEB SCH ×2 (00:01→08:17)
[2020-08-19] MEDS: Acetaminophen 650 MG/20.3 ML UDCUP PER TUBE PRN ×2 (01:03→05:08)
[2020-08-19] MEDS: Propofol 1,000 MG/100 ML VIAL IV PRN ×2 (02:14→05:37)
[2020-08-19] MEDS: Pantoprazole 80 MG, Admixture Fee 1 EACH in Sodium Chloride 0.9% 100 ML IVPB SCH (02:34)
[2020-08-19 04:23] LABS: #Eosinphils 0.1 thou/uL (0.0-0.7); #Lymphocytes 1.2 thou/uL (1.20-3.40); #Monocytes 0.7 thou/uL (0.11-0.59); #Neutrophils 8.3 thou/uL (1.40-6.50); %Basophils 0.4 % (0.0-1.0); %Lymphocytes 11.2 % (21.0-51.0); %Monocytes 6.9 % (0.0-10.0); %Neutrophils 80.5 % (42.0-75.0); Hemoglobin 8.5 g/dL (12.0-16.0); Mean Corpuscular HGB CONC 36.2 g/dL (32.0-36.0); Mean Corpuscular Hemoglobin 31.3 pg (27.0-31.0); Mean Corpuscular Volume 86.6 fL (78.0-98.0); Mean Platelet Volume 10.2 fL (7.4-10.4); Platelet Count 92 thou/uL (130-400); RBC Distribution Width 13.5 % (11.5-14.5); White Blood Cell (WBC) Count 10.3 thou/uL (4.8-10.8)
[2020-08-19 04:45] LABS: Anion Gap 21 mmol/L (10-20); BUN (Urea Nitrogen) 64 mg/dL (9.8-20.1); Calc. Creatinine Clearance 22 mL/min (70-130); Calcium 8.3 mg/dL (7.8-10.44); Carbon Dioxide 22 mmol/L (23-31); Chloride 94 mmol/L (98-107); Estimated GFR-MDRD 11; Glucose 98 mg/dL (80-115); Potassium 4.4 mmol/L (3.5-5.1); Sodium 133 mmol/L (136-145)
[2020-08-19 07:52] VITALS: TEMP 99.8
[2020-08-19] MEDS: Mometasone 200 MCG/Formoterol 5 MCG 120 PUFF INHALER INH SCH (08:17)
[2020-08-19] MEDS: methylPREDNISolone Sod Succ 40 MG VIAL IVP SCH (09:48)
[2020-08-19] MEDS ORDERED: Lorazepam 2 MG/ML VIAL SLOW IVP PRN (09:54)
[2020-08-19] MEDS ORDERED: Propofol 1,000 MG/100 ML VIAL IV ONE (10:15)
--- NOTE | 2020-08-19 10:19 | PRG ---
DATE OF SERVICE: SUBJECTIVE: Lorri Hogue discussed with the patient's . He want to extubate her and keep her comfortable. She is on 100%, PEEP of 15 and sats are 80, unresponsive. She is on low-dose Diprivan. OBJECTIVE: VITAL SIGNS: Pulse 105, blood pressure 113/80, respirations 46. CHEST: No wheezing. No crackles. CARDIAC: Normal S1 and S2. No gallops. ABDOMEN: No masses. ASSESSMENT: Multiorgan failure, respiratory failure, acute respiratory distress syndrome, pneumothorax, positive virus pneumonia, underlying interstitial lung disease. PLAN: We will extubate her, comfort care as soon as arrives and makes a decision. One-half hour of critical time. Job ID: [id number]
[2020-08-19 11:32] VITALS: BP 124/63
--- NOTE | 2020-08-19 16:21 | PDOC.DS.DS ---
Provider - Provider Date of Admission: 07/25/20 23:30 Admitting Provider: Hola Carpenter MD Primary Care Physician: Carmella Mitchell MD Course - Hospital Course Hospital Course: (1) Acute respiratory failure with hypoxia Code(s): J96.01 - ACUTE RESPIRATORY FAILURE WITH HYPOXIA Status: Acute (2) GI bleed Code(s): K92.2 - GASTROINTESTINAL HEMORRHAGE, UNSPECIFIED Status: Acute (3) Acute anemia Code(s): D64.9 - ANEMIA, UNSPECIFIED Status: Acute (4) Pneumonia due to COVID-19 virus Code(s): U07.1 - COVID-19; J12.89 - OTHER VIRAL PNEUMONIA Status: Acute (5) Diastolic dysfunction Code(s): I51.9 - HEART DISEASE, UNSPECIFIED Status: Chronic (6) Hypertension Code(s): I10 - ESSENTIAL (PRIMARY) HYPERTENSION Status: Chronic Qualifiers: Hypertension type: essential hypertension Qualified Code(s): I10 - Essential (primary) hypertension (7) ILD (interstitial lung disease) Code(s): J84.9 - INTERSTITIAL PULMONARY DISEASE, UNSPECIFIED Status: Chronic (8) Obesity (BMI 30.0-34.9) Code(s): E66.9 - OBESITY, UNSPECIFIED Status: Chronic (9) Acute kidney injury Code(s): N17.9 - ACUTE KIDNEY FAILURE, UNSPECIFIED Status: Acute Chronic diastolic heart failure Acute kidney injury requiring dialysis. DIC- likely from recent COVID infection * COVID pneumonia with respiratory failure- * -Worsening respiratory condition and poor lung status, And now new pneumothorax on the right side. * -Requiring ongoing bilevel vent support. * * * GI- bleed with acute blood loss anemia- She continues to have some dark colored gastric secretions- * -She is not a strong candidate for any endoscopic study in the context of DIC. * Continue Protonix drip. * -Her hemoglobin today rounds 7.0.--- And her prognosis being poor overall it may not be helpful to do transfusion at this point. * - * * * It appears that Dr. Rice has discussed with the spouse about taking her off sedation and had a chance for the spouse to talk to her. * -Consideration for withdrawal of vent support. * -Palliative consult placed. * Prognosis is guarded Withdrawal of care done this morning. Patient had a demise around 12:45 PM Primary cause of her demise Covid pneumonia Secondary cause for GI bleed with acute blood loss anemia and underlying interstitial lung disease Resuscitation Status: 08/08/20 14:32 Resuscitation Status Routine Resuscitation Status: DNAR: NO Resuscitation Discussed with: with - Labs Lab Results: 08/19/20 03:50 08/19/20 03:50 Abnormal Lab Results - Last 48 hrs 08/18/20 04:32: Sodium 133 L, Chloride 95 L, BUN 48 H, Creatinine 3.14 H 08/18/20 04:32: WBC 11.9 H, RBC 2.76 L, Hgb 8.4 L, Hct 24.0 L, Plt Count 88 L, Neutrophils % (Manual) 76 H, Lymphocytes % (Manual) 7 L, Nucleated RBCs # (Man) 1 H, Plt Morphology Comment Appears Decreased L 08/19/20 03:50: Sodium 133 L, Chloride 94 L, Carbon Dioxide 22 L, Anion Gap 21 H, BUN 64 H, Creatinine 4.03 H 08/19/20 03:50: RBC 2.70 L, Hgb 8.5 L, Hct 23.4 L, MCH 31.3 H, MCHC 36.2 H, Plt Count 92 L, Neutrophils % 80.5 H, Lymphocytes % 11.2 L, Neutrophils # 8.3 H, Monocytes # 0.7 H Microbiology - Entire Visit 07/25/20 21:23 Venous blood - Left Arm Blood Culture - Final Coagulase Neg Staphylococcus Presumptive Corynebacterium sp Coagulase Neg Staphylococcus#2 Coagulase Neg Staphylococcus#3 07/25/20 21:23 Venous blood - Right Arm Blood Culture - Final Presumptive Corynebacterium sp 07/27/20 20:30 Urine Straight Catheter Urine Culture - Final NO GROWTH AT 48 HOURS 07/27/20 20:30 Stool Stool Culture - Final Pseudomonas aeruginosa 07/27/20 20:30 Stool Escherichia coli 0157 Culture - Final 07/27/20 20:30 Stool C. difficile GDH Antigen & Toxins - Final 07/27/20 20:30 Stool Stool Lactoferrin - Final 07/27/20 20:30 Stool Rapid Parasite Screen - Final 07/27/20 20:30 Stool Campylobacter Antigen Assay - Final 07/27/20 20:30 Stool Shiga Toxin Test - Final 07/27/20 11:09 Sputum Respiratory Culture - Final - Physical Exam Vitals: Vital Signs (12 hours) Temp Pulse Resp BP Pulse Ox 08/19/20 12:00 35 H 08/19/20 11:30 105 H 124/63 08/19/20 09:57 35 H 08/19/20 08:17 105 H 98/68 08/19/20 08:00 35 H 85 L 08/19/20 07:00 99.8 F H 08/19/20 06:00 44 H 08/19/20 05:08 100.7 F H Weight Admit Weight 214 lb Weight 214 lb Most Recent Monitor Data Heart Rate from ECG 104 NIBP 133/69 NIBP BP-Mean 90 Respiration from ECG 35 SpO2 84 Physical Exam: The patient was seen and examined on the day of discharge. Plan - Discharge Medications Home Medications: Medication Instructions Recorded Confirmed Type Sertraline HCl [Zoloft] 100 mg PO HS 11/14/13 07/26/20 History Simvastatin [Zocor] 40 mg PO HS 11/14/13 07/26/20 History Zolpidem Tartrate [Ambien CR] 5 mg PO HS PRN 11/18/17 07/26/20 History Losartan/Hydrochlorothiazide 1 each PO DAILY 06/02/20 07/26/20 History [Losartan-Hctz 100-25 mg Tab] Pantoprazole [Protonix] 40 mg PO DAILY 06/02/20 07/26/20 History ALPRAZolam [Xanax] 0.25 mg PO BID PRN 07/21/20 07/26/20 History Amitriptyline HCl [Elavil] 25 mg PO HS 07/21/20 07/26/20 History Cyclobenzaprine [Flexeril] 10 mg PO TID PRN 07/21/20 07/26/20 History Montelukast Sodium [Singulair] 10 mg PO DAILY 07/21/20 07/26/20 History Potassium Chloride [Klor-Con 10] 10 meq PO DAILY 07/21/20 07/26/20 History Fluticasone/Umeclidin/Vilanter 1 puff PO DAILY 07/26/20 07/26/20 History [Trelegy Ellipta 100-62.5-25] predniSONE [Prednisone] 2 tab PO DAILY 07/26/20 07/26/20 History Allergies: levofloxacin [From Levaquin] Allergy (Verified 07/21/20 23:26) nitrofurantoin [From Macrobid] Allergy (Verified 07/21/20 23:26) - Follow up Plan Referrals: Carmella Mitchell MD [Primary Care Provider] - Disposition: Quality - Care Measures CORE MEASURES:: N/A
== END 2020-08-19 12:45 | disposition expired | DRG 870 ==
LOC: ERS 21:04 → IMCU/EMU 23:30 → ERHOLD 07-28 04:02 → CCU 07-28 04:03
PROVIDERS: ADMIT Internal Medicine; ATTEND Internal Medicine
PROC: 8E0ZXY6 Isolation (ICD-10-PCS; 2020-07-25)
PROC: XW13325 Transfusion of Convalescent Plasma (Nonautologous) into Peripheral Vein, Percutaneous Approach, New Technology Group 5 (ICD-10-PCS; 2020-07-27)
PROC: 5A1955Z Respiratory Ventilation, Greater than 96 Consecutive Hours (ICD-10-PCS; principal; 2020-07-28)
PROC: 0BH17EZ Insertion of Endotracheal Airway into Trachea, Via Natural or Artificial Opening (ICD-10-PCS; 2020-07-28)
PROC: 02HV33Z Insertion of Infusion Device into Superior Vena Cava, Percutaneous Approach (ICD-10-PCS; 2020-07-28)
PROC: XW033E5 Introduction of Remdesivir Anti-infective into Peripheral Vein, Percutaneous Approach, New Technology Group 5 (ICD-10-PCS; 2020-07-28)
PROC: 06HY33Z Insertion of Infusion Device into Lower Vein, Percutaneous Approach (ICD-10-PCS; 2020-08-11)
PROC: 5A1D70Z Performance of Urinary Filtration, Intermittent, Less than 6 Hours Per Day (ICD-10-PCS; 2020-08-11)
PROC: 5A1D70Z Performance of Urinary Filtration, Intermittent, Less than 6 Hours Per Day (ICD-10-PCS; 2020-08-12)
PROC: 30233N1 Transfusion of Nonautologous Red Blood Cells into Peripheral Vein, Percutaneous Approach (ICD-10-PCS; 2020-08-12)
PROC: 5A1D70Z Performance of Urinary Filtration, Intermittent, Less than 6 Hours Per Day (ICD-10-PCS; 2020-08-15)
PROC: 5A1D70Z Performance of Urinary Filtration, Intermittent, Less than 6 Hours Per Day (ICD-10-PCS; 2020-08-16)
DX: A41.89 Other specified sepsis (principal); U07.1 COVID-19; J96.01 Acute respiratory failure with hypoxia; J12.89 Other viral pneumonia; D65 Disseminated intravascular coagulation [defibrination syndrome]; K92.2 Gastrointestinal hemorrhage, unspecified; N17.9 Acute kidney failure, unspecified; J44.0 Chronic obstructive pulmonary disease with (acute) lower respiratory infection; I50.32 Chronic diastolic (congestive) heart failure; E87.1 Hypo-osmolality and hyponatremia; E87.2 Acidosis; I13.0 Hypertensive heart and chronic kidney disease with heart failure and stage 1 through stage 4 chronic kidney disease, or unspecified chronic kidney disease; D62 Acute posthemorrhagic anemia; J93.83 Other pneumothorax; R57.9 Shock, unspecified; E83.51 Hypocalcemia; Z66 Do not resuscitate; Z51.5 Encounter for palliative care; Z96.651 Presence of right artificial knee joint; E66.01 Morbid (severe) obesity due to excess calories; D63.8 Anemia in other chronic diseases classified elsewhere; E88.09 Other disorders of plasma-protein metabolism, not elsewhere classified; E87.5 Hyperkalemia; N18.30 Chronic kidney disease, stage 3 unspecified; E11.22 Type 2 diabetes mellitus with diabetic chronic kidney disease; E78.5 Hyperlipidemia, unspecified; F41.9 Anxiety disorder, unspecified; Z90.710 Acquired absence of both cervix and uterus; Z87.891 Personal history of nicotine dependence; Z88.1 Allergy status to other antibiotic agents; Z88.8 Allergy status to other drugs, medicaments and biological substances; Z79.891 Long term (current) use of opiate analgesic; Z79.899 Other long term (current) drug therapy; Z68.36 Body mass index [BMI] 36.0-36.9, adult
CPT/HCPCS: 36415; 36416; 36430; 36600; 71045; 71275; 80048; 80053; 80076; 80202; 81001; 82805; 83605; 83630; 83735; 83880; 84100; 84145; 84484; 85025; 85027; 85049; 85300; 85362; 85379; 85384; 85610; 85730; 86141; 86704; 86706; 86803; 86850; 86900; 86901; 87040; 87045; 87046; 87070; 87077; 87081; 87086; 87149; 87205; 87324; 87328; 87329; 87340; 87427; 87449; 87635; 90935; 93005; 94002; 94003; 94640; 96365; 96366; 96367; 96375; C9113; G0257; J0456; J0692; J0696; J1100; J1644; J1650; J1720; J1940; J2060; J2270; J2704; J2720; J2920; J3010; J3262; J3370; J3490; J7050; J7611; J7620; P9016; P9017; P9047; P9059; Q9967; S0028; U0003